=== PATIENT | female | born 1945 | race Caucasian/White ===

== ENCOUNTER 2016-06-30 09:09 | Outpatient (RCR) | payer MEDICARE ==
[2016-05-26 09:21] LABS: BASOPHILS % (AUTO) 1 % (0-10); EOSINOPHILS # (AUTO) 0.1 10^3/uL (0.0-0.3); EOSINOPHILS % (AUTO) 2 % (0-10); LYMPHOCYTES # (AUTO) 1.4 X 10^3 (1.0-4.0); LYMPHOCYTES % (AUTO) 23 % (12-44); MEAN CORPUSCULAR HEMOGLOBIN 28 PG (25-34); MEAN CORPUSCULAR HGB CONC 32 G/DL (32-36); MEAN CORPUSCULAR VOLUME 86 FL (80-99); MEAN PLATELET VOLUME 10.1 FL (7.4-10.4); MONOCYTES # (AUTO) 0.5 X 10^3 (0.0-1.0); MONOCYTES % (AUTO) 7 % (0-12); NEUTROPHILS # (AUTO) 4.2 X 10^3 (1.8-7.8); NEUTROPHILS % (AUTO) 68 % (42-75); PLATELET COUNT 231 10^3/uL (130-400); RED BLOOD COUNT 4.59 10^6/uL (4.35-5.85); WHITE BLOOD COUNT 6.3 10^3/uL (4.3-11.0)
[2016-05-26 10:10] LABS: ALBUMIN 4.1 G/DL (3.2-4.5); BILIRUBIN,TOTAL 0.5 MG/DL (0.1-1.0); CALCIUM 9.8 MG/DL (8.5-10.1); CREATININE SERUM 1.31 MG/DL (0.60-1.30); POTASSIUM 4.5 MMOL/L (3.6-5.0); TOTAL PROTEIN 6.8 G/DL (6.4-8.2)
[~2016-06-30 09:09] MED LIST: ALPR0.2550; ALPR0.5T PO; CA/D1TAB7 PO; CHOL500049 PO; FULVESTRANT 250 MG/5 ML SYR (CANCER CENTER) IM SCH; HCT25T; IBP800T; NAPR220T76; OMEP-10 PO; OXYCODONE; SIME40DR9 PO; SUCR1TAB; TELM40T; TELM40T PO
== END 2016-07-06 | disposition home or self-care (01) ==
LOC: ONC 09:09
PROVIDERS: ATTEND Internal Medicine Hematology & Oncology
DX: C50.911 Malignant neoplasm of unspecified site of right female breast (principal); J91.0 Malignant pleural effusion; N18.3 Chronic kidney disease, stage 3 (moderate); M85.80 Other specified disorders of bone density and structure, unspecified site; Z92.21 Personal history of antineoplastic chemotherapy; Z90.11 Acquired absence of right breast and nipple; Z79.818 Long term (current) use of other agents affecting estrogen receptors and estrogen levels
CPT/HCPCS: 36415; 80053; 82306; 85025; 86300; 96402; 99213

== ENCOUNTER 2016-10-09 03:18 | Observation (INO) | payer MEDICARE ==
[~2016-10-09] VITALS: Ht 165.1 cm; Wt 81.2 kg
[~2016-10-09 03:18] MED LIST changes: -FULVESTRANT 250 MG/5 ML SYR (CANCER CENTER) IM SCH
[2016-10-09] MEDS ORDERED: OMEG500C PO (03:35)
[2016-10-09] MEDS ORDERED: NS IV 1000 ML 1,000 ML IV STA (03:39)
[2016-10-09] MEDS ORDERED: FULV250D2 IM (03:44)
[2016-10-09] MEDS ORDERED: ONDANSETRON 4 MG/2 ML (SDV) Z0FRAN IVP ONE ×2 (03:45→06:15)
[2016-10-09] MEDS ORDERED: MECLIZINE 25 MG (ANTIVERT) TAB PO ONE (03:45)
--- NOTE | 2016-10-09 03:49 | ED General ---
General Chief Complaint: Dizziness/Syncope Stated Complaint: DIZZY NAUSEA SWEATNG Nursing Triage Note: Pt reports sudden onset of dizziness at 0115 this am when getting up to go to restroom. Pt reports dizziness is worse when lying down or closing eyes. Pt also reports vomiting. Daughter at bedside states she found pt in bathroom in shirt soaked w/ sweat. Nursing Sepsis Screen: No Definite Risk Source of Information: Patient Exam Limitations: No Limitations History of Present Illness Time Seen by Provider: 03:31 Initial Comments Here with report of acute onset of dizziness at about 115 this morning after she had got up to go to the bathroom. She states that she had gone and then went and laid back down. On laying down she states the room was spinning severely and then she started dry heaving. She did break out in a sweat after that. She was able to get her daughter to help. She brought her here for evaluation. Denies chest pain and her breathing problems. Denies syncope. Denies injury. Had a similar episode years ago in which she is dehydrated. Timing/Duration: 1-3 Hours Severity: Moderate, Severe Associated Systoms: Diaphoresis, Nausea/Vomiting, Weakness Allergies and Home Medications Allergies Coded Allergies: Sulfa (Sulfonamide Antibiotics) (Unverified Allergy, Mild, 02/04/09) ampicillin (Unverified Allergy, Mild, 02/04/09) Home Medications Ca/D3/Mag/Zinc/[place]/Damir/Mgbor 1 Each Tab.chew, 1 TAB PO BID, #1 Prescribed by: ZARA HANKS on 04/01/161740 Cholecalciferol (Vitamin D3) 50,000 Unit Capsule, 50,000 UNIT PO DAILY, #1 Prescribed by: ZARA HANKS on 04/01/161740 Fulvestrant 250 Mg/5 Ml Syringe, Unknown Dose IM monthly, (Reported) [place]-3 Fatty Acids 500 Mg Capsule.dr, 1,000 MG PO, (Reported) Omeprazole 20 Mg Capsule.dr, 20 MG PO DAILY, (Reported) Telmisartan 40 Mg Tab, 40 MG PO DAILY, (Reported) Constitutional: see HPI, diaphoresis, dizziness, No fever EENTM: no symptoms reported Respiratory: no symptoms reported, No short of breath, No wheezing Cardiovascular: No chest pain, No edema, No palpitations Gastrointestinal: No abdominal pain, No diarrhea, nausea, vomiting Genitourinary: no symptoms reported Musculoskeletal: no symptoms reported Skin: no symptoms reported, No rash Psychiatric/Neurological: See HPI, Denies Headache, Denies Numbness All Other Systems Reviewed Negative Unless Noted: Yes Past Mzvogpq-Nhmoit-Bimktp Hx Patient Social History Alcohol Use: Denies Use Recreational Drug Use: No Smoking Status: Never a Smoker Recent Foreign Travel: No Contact w/Someone Who Travel: No Recent Infectious Disease Expo: No Recent Hopitalizations: No Immunizations Up To Date Tetanus Booster (TDap): Unknown PED Vaccines UTD: No Seasonal Allergies Seasonal Allergies: No Surgeries HX Surgeries: Yes Surgeries: Breast, Hysterectomy Respiratory Hx Respiratory Disorders: Yes (PLEURAL EFFUSION) Cardiovascular Hx Cardiac Disorders: No Neurological Hx Neurological Disorders: No Reproductive System Hx Reproductive Disorders: Yes (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) 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 Genitourinary Hx Genitourinary Disorders: No Gastrointestinal Hx Gastrointestinal Disorders: Yes (ACID REFLUX) Gastrointestinal Disorders: Diverticulosis Musculoskeletal Hx Musculoskeletal Disorders: Yes Musculoskeletal Disorders: Arthritis Endocrine Hx Endocrine Disorders: Yes Endocrine Disorders: Hyperthyroidism HEENT HX ENT Disorders: No Cancer Hx Cancer: Yes Cancer: Breast Psychosocial Hx Psychiatric Problems: No Integumentary HX Skin/Integumentary Disorder: No Blood Transfusions Hx Blood Disorders: No Reviewed Nursing Assessment Reviewed/Agree w Nursing PMH: Yes Family Medical History Significant Family History: Diabetes Family Medial History: Arthritis 19 MOTHER G8 SISTER Completed stroke 19 FATHER Hypertension DAUGHTER Physical Exam Vital Signs Vital Sign - Last 12Hours 10/09/16 03:27 Temp 96.7 Pulse 78 Resp 18 B/P (MAP) 149/73 Pulse Ox 99 O2 Delivery Room Air Capillary Refill : Less Than 3 Seconds General Appearance: WD/WN, Mild Distress HEENT: PERRL/EOMI, Pharynx Normal Neck: Non Tender, Supple Respiratory: Lungs Clear, Normal Breath Sounds Cardiovascular: Regular Rate, Rhythm, No Murmur Gastrointestinal: Non Tender, Soft Back: Normal Inspection, No CVA Tenderness, No Vertebral Tenderness Extremity: Non Tender, No Calf Tenderness Neurologic/Psychiatric: Alert, Oriented x3, No Motor/Sensory Deficits Skin: Normal Color, Warm/Dry Progress/Results/Core Measures Results/Orders Lab Results Laboratory Tests Test 10/09/16 03:28 10/09/16 04:38 Range/Units White Blood Count 9.6 4.3-11.0 10^3/uL Red Blood Count 4.57 4.35-5.85 10^6/uL Hemoglobin 12.6 11.5-16.0 G/DL Hematocrit 39 35-52 % Mean Corpuscular Volume 85 80-99 FL Mean Corpuscular Hemoglobin 28 25-34 PG Mean Corpuscular Hemoglobin Concent 32 32-36 G/DL Red Cell Distribution Width 13.3 10.0-14.5 % Platelet Count 236 130-400 10^3/uL Mean Platelet Volume 10.9 H 7.4-10.4 FL Neutrophils (%) (Auto) 69 42-75 % Lymphocytes (%) (Auto) 21 12-44 % Monocytes (%) (Auto) 8 0-12 % Eosinophils (%) (Auto) 2 0-10 % Basophils (%) (Auto) 1 0-10 % Neutrophils # (Auto) 6.7 1.8-7.8 X 10^3 Lymphocytes # (Auto) 2.0 1.0-4.0 X 10^3 Monocytes # (Auto) 0.7 0.0-1.0 X 10^3 Eosinophils # (Auto) 0.2 0.0-0.3 10^3/uL Basophils # (Auto) 0.1 0.0-0.1 10^3/uL Prothrombin Time 12.2 12.2-14.7 SEC INR Comment 0.9 0.8-1.4 Activated Partial Thromboplast Time 33 24-35 SEC D-Dimer 0.27 0.00-0.49 UG/ML Sodium Level 141 135-145 MMOL/L Potassium Level 4.2 3.6-5.0 MMOL/L Chloride Level 106 98-107 MMOL/L Carbon Dioxide Level 21 21-32 MMOL/L Anion Gap 14 5-14 MMOL/L Blood Urea Nitrogen 32 H 7-18 MG/DL Creatinine 1.42 H 0.60-1.30 MG/DL Estimat Glomerular Filtration Rate 37 BUN/Creatinine Ratio 23 Glucose Level 107 H 70-105 MG/DL Calcium Level 9.6 8.5-10.1 MG/DL Magnesium Level 2.2 1.8-2.4 MG/DL Total Bilirubin 0.4 0.1-1.0 MG/DL Aspartate Amino Transf (AST/SGOT) 20 5-34 U/L Alanine Aminotransferase (ALT/SGPT) 14 0-55 U/L Alkaline Phosphatase 113 40-136 U/L Troponin I < 0.30 <0.30 NG/ML Total Protein 6.9 6.4-8.2 G/DL Albumin 4.2 3.2-4.5 G/DL Thyroid Stimulating Hormone (TSH) 1.06 0.35-4.94 UIU/ML Urine Color YELLOW Urine Clarity CLEAR Urine pH 5 5-9 Urine Specific [place] 1.020 1.016-1.022 Urine Protein NEGATIVE NEGATIVE Urine Glucose (UA) NEGATIVE NEGATIVE Urine Ketones NEGATIVE NEGATIVE Urine Nitrite NEGATIVE NEGATIVE Urine Bilirubin NEGATIVE NEGATIVE Urine Urobilinogen NORMAL NORMAL MG/DL Urine Leukocyte Esterase 3+ H NEGATIVE Urine RBC (Auto) NEGATIVE NEGATIVE Urine RBC NONE /HPF Urine WBC 5-10 H /HPF Urine Squamous Epithelial Cells RARE /HPF Urine Crystals NONE /LPF Urine Bacteria TRACE /HPF Urine Casts PRESENT /LPF Urine Hyaline Casts RARE /LPF Urine Mucus NEGATIVE /LPF Urine Culture Indicated YES My Orders Orders - LUISITO MANRIQUE MD Cbc With Automated Diff (10/09/16 03:39) Comprehensive Metabolic Panel (10/09/16 03:39) Fibrin Degradation Products (10/09/16 03:39) Magnesium (10/09/16 03:39) Thyroid Stimulating Hormone (10/09/16 03:39) Troponin I (10/09/16 03:39) Ua Culture If Indicated (10/09/16 03:39) Chest 1 View, Ap/Pa Only (10/09/16 03:39) Ondansetron Injection (Zofran Injectio (10/09/16 03:45) Ns Iv 1000 Ml (Sodium Chloride 0.9%) (10/09/16 03:39) Saline Lock/Iv-Start (10/09/16 03:39) Meclizine Tablet (Antivert Tablet) (10/09/16 03:45) Protime With Inr (10/09/16 04:10) Partial Thromboplastin Time (10/09/16 04:10) Urine Culture (10/09/16 04:38) Ct Head Wo (10/09/16 05:26) Ceftriaxone Injection (Rocephin Injectio (10/09/16 05:30) Ondansetron Injection (Zofran Injectio (10/09/16 06:15) Diazepam Injection (Valium Injection) (10/09/16 06:15) Medications Given in ED Current Medications Medications Dose Ordered Sig/Brinda Route Start Time Stop Time Status Last Admin Dose Admin Ceftriaxone Sodium 1000 mg/ Sodium Chloride 50 ml @ 100 mls/hr ONCE ONCE IV 10/09/16 05:30 10/09/16 05:59 DC 10/09/16 05:30 100 MLS/HR Meclizine HCl 25 mg ONCE ONCE PO 10/09/16 03:45 10/09/16 03:46 DC 10/09/16 03:48 25 MG Ondansetron HCl 4 mg ONCE ONCE IVP 10/09/16 03:45 10/09/16 03:46 DC 10/09/16 03:47 4 MG Vital Signs/I&O Vital Sign - Last 12Hours 10/09/16 03:27 Temp 96.7 Pulse 78 Resp 18 B/P (MAP) 149/73 Pulse Ox 99 O2 Delivery Room Air Blood Pressure Mean: 98 Progress Note : Progress Note Seen and evaluated. IV, labs, normal saline 1 L bolus, Zofran 4 mg IV and meclizine 25 mg by mouth given. EKG and chest x-ray ordered. Monitor patient. 0530: Somewhat improved but still pretty dizzy. UTI noted. No indications of cardiac abnormality currently. Due to persistent dizziness and urinary tract infection, admission indicated. I did discuss the case with Dr. Doran. He accepts patient for admission, observation status. Patient is complaining of some fullness of the head and has history of breast and lung cancer so we will get CT of the head as well. Dr. Doran will follow results of that. Patient agrees to admission. 0610: Patient has completed CT scan and is pending admission to the floor. She is persistently vomiting now. Repeat Zofran 4 mg IV. Valium 2 mg IV ordered. Continue with admission. ECG Initial ECG Impression Date: Oct 09, 2016 Initial ECG Impression Time: 03:36 Initial ECG Rate: 76 Initial ECG Rhythm: Normal Sinus Comment Sinus rhythm with normal axis but leftward. After trial abnormality. No evidence of ST elevation PA. Overall very similar to previous of . Interpreted by me. Diagnostic Imaging Diagonstic Imaging: Xray Plain Films/CT/US/NM/MRI: chest Comments No acute findings Reviewed: Reviewed by Me Diagonstic Imaging: CT Plain Films/CT/US/NM/MRI: head Comments VIA [facility], [facility]. [place], [place] NAME: NIKKO CAMARENA [facility] REC#: [id number] PT STATUS: ADM Elia : 1945 PHYSICIAN: LUISITO MANRIQUE MD ADMIT DATE: 10/09/16 Draft Date of Exam:10/09/16 CT HEAD WO PROCEDURE: CT head without contrast. TECHNIQUE: Multiple contiguous axial images were obtained through the brain without the use of intravenous contrast. INDICATION: Dizziness. COMPARISONS: None available. FINDINGS: No hyperdense hemorrhage or space-occupying mass. No hydrocephalus or midline shift. Bent[place]-white matter differentiation is preserved. Specifically, there is no evidence of large territorial infarct. Age-appropriate mild generalized atrophy without lobar predominance. The basilar cisterns remain patent. Paranasal sinuses and mastoid air cells are clear with the exception of trace mucosal thickening of the sphenoid sinuses. Orbits are unremarkable. No concerning calvarial lesion. IMPRESSION: 1. No acute intracranial process. Dictated on workstation # [id number] Dict: 10/09/16 0601 Trans: 10/09/16 0605 ELIZABETH [id number] Interpreted by: REYNA BLANTON MD Electronically signed by: Reviewed: Reviewed by Me Departure Communication Time/Spoke to Admitting Phy: 05:30 Impression Impression: Primary Impression: Urinary tract infection Qualified Codes: N30.00 - Acute cystitis without hematuria Additional Impression: Vertigo Disposition: ADMITTED INPATIENT Condition: Stable Decision to Admit Reason: Admit from ER (General) Decision to Admit/Date: Oct 09, 2016 Time/Decision to Admit Time: 05:30 Departure-Patient Inst. Referrals: PIEDAD DORAN DO (PCP/Family) Primary Care Physician LUISITO MANRIQUE MD Oct 09, 2016 03:49
[2016-10-09 03:54] LABS: BASOPHILS # (AUTO) 0.1 10^3/uL (0.0-0.1); BASOPHILS % (AUTO) 1 % (0-10); EOSINOPHILS # (AUTO) 0.2 10^3/uL (0.0-0.3); EOSINOPHILS % (AUTO) 2 % (0-10); LYMPHOCYTES % (AUTO) 21 % (12-44); MEAN CORPUSCULAR HEMOGLOBIN 28 PG (25-34); MEAN CORPUSCULAR HGB CONC 32 G/DL (32-36); MEAN CORPUSCULAR VOLUME 85 FL (80-99); MEAN PLATELET VOLUME 10.9 FL (7.4-10.4); MONOCYTES # (AUTO) 0.7 X 10^3 (0.0-1.0); MONOCYTES % (AUTO) 8 % (0-12); NEUTROPHILS # (AUTO) 6.7 X 10^3 (1.8-7.8); NEUTROPHILS % (AUTO) 69 % (42-75); PLATELET COUNT 236 10^3/uL (130-400); RED BLOOD COUNT 4.57 10^6/uL (4.35-5.85); RED CELL DISTRIBUTION WIDTH 13.3 % (10.0-14.5); WHITE BLOOD COUNT 9.6 10^3/uL (4.3-11.0)
[2016-10-09 04:12] LABS: ALANINE AMINOTRANSFERASE 14 U/L (0-55); ALBUMIN 4.2 G/DL (3.2-4.5); ANION GAP 14 MMOL/L (5-14); ASPARTATE AMINO TRANSFERASE 20 U/L (5-34); BILIRUBIN,TOTAL 0.4 MG/DL (0.1-1.0); BLOOD UREA NITROGEN 32 MG/DL (7-18); BUN/CREATININE RATIO 23; CALCIUM 9.6 MG/DL (8.5-10.1); CARBON DIOXIDE 21 MMOL/L (21-32); CHLORIDE 106 MMOL/L (98-107); CREATININE SERUM 1.42 MG/DL (0.60-1.30); GFR ESTIMATED 37; GLUCOSE 107 MG/DL (70-105); MAGNESIUM 2.2 MG/DL (1.8-2.4); POTASSIUM 4.2 MMOL/L (3.6-5.0); SODIUM 141 MMOL/L (135-145); TOTAL PROTEIN 6.9 G/DL (6.4-8.2)
[2016-10-09 04:19] LABS: INR 0.9 (0.8-1.4); PROTHROMBIN TIME PATIENT 12.2 SEC (12.2-14.7)
[2016-10-09 04:32] LABS: THYROID STIMULATING HORMONE 1.06 UIU/ML (0.35-4.94); TROPONIN I < 0.30 NG/ML (<0.30)
[2016-10-09 04:46] LABS: BILIRUBIN,URINE NEGATIVE (NEGATIVE); KETONES,URINE NEGATIVE (NEGATIVE); LEUKOCYTE ESTERASE ,URINE 3+ (NEGATIVE); NITRITE,URINE NEGATIVE (NEGATIVE); PH,URINE 5 (5-9); PROTEIN,URINE NEGATIVE (NEGATIVE); UROBILINOGEN,URINE NORMAL (NORMAL)
[2016-10-09 04:53] LABS: HYALINE CASTS, URINE RARE /LPF; SQUAMOUS EPITHELIAL CELL,UR RARE /HPF
[2016-10-09] MEDS ORDERED: cefTRIAXone INJECTION 1,000 MG in NS (IVPB) 50 ML IV ONE (05:30)
--- NOTE | 2016-10-09 06:06 | Diagnostic Imaging Report ---
PROCEDURE: CT head without contrast. TECHNIQUE: Multiple contiguous axial images were obtained through the brain without the use of intravenous contrast. INDICATION: Dizziness. COMPARISONS: None available. FINDINGS: No hyperdense hemorrhage or space-occupying mass. No hydrocephalus or midline shift. Bentley-white matter differentiation is preserved. Specifically, there is no evidence of large territorial infarct. Age-appropriate mild generalized atrophy without lobar predominance. The basilar cisterns remain patent. Paranasal sinuses and mastoid air cells are clear with the exception of trace mucosal thickening of the sphenoid sinuses. Orbits are unremarkable. No concerning calvarial lesion. IMPRESSION: 1. No acute intracranial process. Dictated by: Dictated on workstation # [id number]
[2016-10-09] MEDS ORDERED: DIAZEPAM INJ 10 MG/2 ML (VALIUM) SYR IV ONE (06:15)
[2016-10-09] MEDS ORDERED: NS IV 1000 ML 1,000 ML ONE (06:40)
[2016-10-09 06:45] VITALS: BP 142/67
--- NOTE | 2016-10-09 06:48 | Diagnostic Imaging Report ---
CHEST 1 VIEW, AP/PA ONLY INDICATION: Sudden onset dizziness COMPARISON: 11/12/2012 FINDINGS: Stable right apical subpleural nodular thickening, likely due to pleural-parenchymal scarring. No new focal airspace disease in the visualized lungs. Please note that the posterior lower lobes are poorly evaluated by portable radiography. No pleural effusion or pneumothorax. Normal cardiomediastinal silhouette. IMPRESSION: No acute cardiopulmonary process by portable radiography. Dictated by: Dictated on workstation # [id number]
[2016-10-09] MEDS: NS IV 1000 ML 1,000 ML IV SCH ×2 (07:00→16:55)
[2016-10-09] MEDS ORDERED: CA C1TAB84 PO (07:50)
[2016-10-09 08:00] VITALS: BP 119/76
[2016-10-09] MEDS: ONDANSETRON 4 MG/2 ML (SDV) Z0FRAN IV PRN ×2 (11:43→16:56)
[2016-10-09] MEDS: MECLIZINE 25 MG (ANTIVERT) TAB PO PRN ×2 (11:44→20:23)
--- NOTE | 2016-10-09 11:54 | History & Physicial ---
History of Present Illness History of Present Illness Reason for visit/HPI sudden onset of dizziness when got up to go to the bathroom. Everything was spinning around her head with eyes closed. Patient went back to bathroom still got dizzy and soaking wet. Daughter was called and patient brought out to the emergency room. Surgeries hysterectomy and right breast mastectomy. Patient this morning still feeling dizzy. When patient was dizzy last night she vomited. Mnire's disease. UA shows infection infection. Renal insufficiency. Takes monthly shots for breast cancer. Family history denies asthma TB diabetes heart disease lung disease cancer Date of Admission Oct 09, 2016 at 05:32 I consulted on this patient on 10/09/16 11:50 Attending Physician Jerrod Doran DO Admitting Physician Jerrod Doran DO Consult Allergies and Home Medications Allergies Coded Allergies: Sulfa (Sulfonamide Antibiotics) (Unverified Allergy, Mild, 02/04/09) ampicillin (Unverified Allergy, Mild, 02/04/09) Home Medications Ca Carb/D3/Mag Ox/Soap Drier Tender/Damir/Zn 1 Each Tablet, 1 EACH PO BID, (Reported) Cholecalciferol (Vitamin D3) 50,000 Unit Capsule, 50,000 UNIT PO DAILY, #1 Prescribed by: ZARA HANKS on 04/01/16 1741 Fulvestrant 250 Mg/5 Ml Syringe, Unknown Dose IM monthly, (Reported) Omeprazole 20 Mg Capsule.dr, 20 MG PO DAILY, (Reported) Telmisartan 40 Mg Tab, 40 MG PO DAILY, (Reported) Past Kcixtiz-Zguihq-Imfrrp Hx Patient Social History Marrital Status: Employed/Student: unemployed Alcohol Use: Denies Use Recreational Drug Use: No Smoking Status: Never a Smoker Physical Abuse Screen: No Sexual Abuse: No Recent Foreign Travel: No Contact w/other who traveled: No Recent Hopitalizations: No Recent Infectious Disease Expo: No Immunizations Up To Date Tetanus Booster (TDap): Unknown Seasonal Allergies Seasonal Allergies: No Surgeries HX Surgeries: Yes Surgeries: Breast, Hysterectomy Respiratory Hx Respiratory Disorders: Yes (PLEURAL EFFUSION) Cardiovascular Hx Cardiovascular Disorders: No Neurological Hx Neurological Disorders: No Reproductive System Hx Reproductive Disorders: Yes (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) Sexually Transmitted Disease: No Genitourinary Hx Genitourinary Disorders: No Gastrointestinal Hx Gastrointestinal Disorders: Yes (ACID REFLUX) Gastrointestinal Disorders: Diverticulosis Musculoskeletal Hx Musculoskeletal Disorders: Yes Musculoskeletal Disorders: Arthritis Endocrine Hx Endocrine Disorders: Yes Endocrine Disorders: Hyperthyroidism HEENT HX ENT Disorders: No Cancer Hx Cancer: Yes Cancer: Breast Psychosocial Hx Psychiatric Problems: No Integumentary HX Skin/Integumentary Disorder: No Blood Transfusions Hx Blood Disorders: No Reviewed Nursing Assessment Reviewed/Agree w Nursing PMH: Yes Family Medical History Significant Family History: Diabetes Family Hx: Arthritis 19 MOTHER G8 SISTER Completed stroke 19 FATHER Hypertension DAUGHTER Constitutional: dizziness, weakness EENTM: no symptoms reported Respiratory: no symptoms reported Cardiovascular: no symptoms reported Gastrointestinal: nausea, vomiting Genitourinary: no symptoms reported Physical Exam Vital Signs Vital Sign - Last 12Hours 10/09/16 03:27 Temp 96.7 Pulse 78 Resp 18 B/P (MAP) 149/73 Pulse Ox 99 O2 Delivery Room Air Capillary Refill : Less Than 3 Seconds General Appearance: No Apparent Distress, WD/WN Eyes: Bilateral Eye Normal Inspection HEENT: Normal ENT Inspection Respiratory: Chest Non Tender, Lungs Clear, Normal Breath Sounds, No Accessory Muscle Use, No Respiratory Distress Cardiovascular: Regular Rate, Rhythm, No Murmur Gastrointestinal: Non Tender, Soft Assessment/Plan Assessment and Plan Mnire's disease. Dizziness. Vomiting. infection. Renal insufficiency. Right breast cancer. Hypertension history Problems: Clinical Quality Measures DVT/VTE Risk/Contraindication: Risk Factor Score Per Nursin RFS Level Per Nursing on Admit: 3=High JERROD DORAN DO Oct 09, 2016 11:54
[2016-10-09] MEDS ORDERED: TELMISARTAN 40 MG (MICARDIS) TAB PO SCH (11:55)
[2016-10-09] MEDS ORDERED: PANTOPRAZOLE 20 MG TABLET (PROTONIX) PO SCH (11:57)
[2016-10-09 12:00] VITALS: BP 125/77
[2016-10-09] MEDS: ENOXAPARIN 40 MG/0.4 ML (LOVENOX) SYR SC SCH ×2 (12:00→12:19)
[2016-10-09] MEDS ORDERED: PATIENT MAY USE OWN MEDS, ALL MC SCH (12:15)
[2016-10-09] MEDS: TELMISARTAN 40 MG (MICARDIS) TAB PO SCH (14:34)
[2016-10-09] MEDS: OMEPRAZOLE 20 MG (PriLOSEC) CAP NON-FORMULARY PO SCH (14:34)
[2016-10-09 16:00] VITALS: BP 130/76
[2016-10-09 20:25] VITALS: BP 119/74
[2016-10-09] MEDS: traZODone 50 MG (DESYREL) TAB PO SCH (22:11)
[2016-10-10] VITALS (8 sets, daily range): BP systolic 98–147; BP diastolic 55–82
[2016-10-10] MEDS: NS IV 1000 ML 1,000 ML IV SCH ×3 (02:59→23:13)
[2016-10-10 06:26] LABS: MEAN PLATELET VOLUME 10.9 FL (7.4-10.4); RED BLOOD COUNT 3.94 10^6/uL (4.35-5.85); RED CELL DISTRIBUTION WIDTH 13.2 % (10.0-14.5); WHITE BLOOD COUNT 6.3 10^3/uL (4.3-11.0)
[2016-10-10] MEDS: cefTRIAXone INJECTION 1,000 MG in NS (IVPB) 50 ML IV SCH (06:26)
[2016-10-10] MEDS: OMEPRAZOLE 20 MG (PriLOSEC) CAP NON-FORMULARY PO SCH (06:26)
[2016-10-10 06:49] LABS: CALCIUM 8.4 MG/DL (8.5-10.1); CREATININE SERUM 0.98 MG/DL (0.60-1.30); POTASSIUM 4.3 MMOL/L (3.6-5.0)
--- NOTE | 2016-10-10 08:03 | Progress Note (SOAP) ---
Subjective Subjective/Events-last exam patient feeling better as long as head of the bed is elevated. Patient feels 50-60 percent better. When head of the bed is down patient feels dizzy and nauseous. To advance diet as tolerated Objective Exam Vital Signs Date Time Temp Pulse Resp B/P (MAP) Pulse Ox O2 Delivery O2 Flow Rate FiO2 10/10/16 04:18 97.6 71 12 100/55 94 Room Air 10/10/16 03:54 70 101/64 100/60 10/10/16 00:25 97.9 80 16 98/62 94 Room Air 10/09/16 20:30 94 Room Air 10/09/16 20:25 98.2 77 18 119/74 96 Room Air 10/09/16 16:00 98.6 79 18 130/76 97 Room Air 10/09/16 12:00 97.9 79 20 125/77 94 Room Air 10/09/16 08:00 97.0 80 20 119/76 96 Room Air I & O 10/10/16 07:00 Intake Total 1200 ml Balance 1200 ml Capillary Refill : Less Than 3 Seconds General Appearance: No Apparent Distress, WD/WN HEENT: Normal ENT Inspection Neck: Normal Inspection Respiratory: Chest Non Tender, Lungs Clear, Normal Breath Sounds, No Accessory Muscle Use, No Respiratory Distress Cardiovascular: Regular Rate, Rhythm, No Murmur Gastrointestinal: non tender, soft Results Lab Laboratory Tests 10/10/16 05:29: White Blood Count 6.3, Red Blood Count 3.94L, Hemoglobin 11.0L, Hematocrit 35, Mean Corpuscular Volume 88, Mean Corpuscular Hemoglobin 28, Mean Corpuscular Hemoglobin Concent 32, Red Cell Distribution Width 13.2, Platelet Count 204, Mean Platelet Volume 10.9H, Sodium Level 143, Potassium Level 4.3, Chloride Level 112H, Carbon Dioxide Level 23, Anion Gap 8, Blood Urea Nitrogen 15, Creatinine 0.98, Estimat Glomerular Filtration Rate 56, BUN/Creatinine Ratio 15 , Glucose Level 93, Calcium Level 8.4L Microbiology 10/09/16 Urine Culture - Preliminary, Resulted Assessment/Plan Assessment/Plan Assess & Plan/Chief Complaint dizziness. Nausea and vomiting. To advance diet. Still has dizziness especially when head of the bed go straight Clinical Quality Measures DVT/VTE Risk/Contraindication: Risk Factor Score Per Nursin RFS Level Per Nursing on Admit: 3=High PIEDAD DORAN DO Oct 10, 2016 08:03
--- NOTE | 2016-10-10 08:41 | Progress Note-Standard ---
Standard Progress Note Progress Notes/Assess & Plan Progress/Assessment & Plan ENT-[facility] Patient seen/evaluated Full note dictated and follow-up arranged JHON QUEEN MD Oct 10, 2016 8:41 am
[2016-10-10] MEDS: TELMISARTAN 40 MG (MICARDIS) TAB PO SCH (08:50)
[2016-10-10] MEDS: MECLIZINE 25 MG (ANTIVERT) TAB PO PRN ×2 (10:07→23:26)
[2016-10-10] MEDS: ONDANSETRON 4 MG/2 ML (SDV) Z0FRAN IV PRN (10:07)
[2016-10-10] MEDS: ACETAMINOPHEN 325 MG TABLET/CAPLET (TYLENOL) PO PRN (10:59)
[2016-10-10] MEDS ORDERED: CALC-6 PO (10:59)
[2016-10-10] MEDS ORDERED: CHOL5000 PO (10:59)
--- NOTE | 2016-10-10 11:06 | Physical Therapy Evaluation ---
PT Evaluation-General Medical Diagnosis Admission Date Oct 09, 2016 at 05:32 Medical Diagnosis: UTI/dizziness Onset Date: Oct 09, 2016 Therapy Diagnosis Therapy Diagnosis: debility secondary to dizziness Height/Weight Height (Feet): 5 Height (Inches): 5.00 Weight (Pounds): 179 Weight (Ounces): 1.0 Precautions Precautions/Isolations: Fall Prevention, Standard Precautions Referral Physician: [facility] Reason for Referral: Evaluation/Treatment Medical History Pertinent Medical History: Arthritis, HTN Additional Medical History hyperthyroidism Current History woke up at 115 a.m. with c/o increased dizziness in supine and eyes closed, with N&V and diaphoresis family brought patient to ED Reviewed History: Yes Social History Home: Single Level Current Living Status: Spouse Prior/Core FIM Prior Level of Function Functional [place] Measure 0=Not Assessed/NA 4=Minimal Assistance 1=Total Assistance 5=Supervision or Setup 2=Maximal Assistance 6=Modified [place] 3=Moderate Assistance 7=Complete [place] Bed Mobility: 7 Transfers (B,C,W/C) (FIM): 7 Gait: 7 Locomotion: 7 PT Evaluation-Current Subjective Patient is in bed and c/o sinus pressure in her face and right neck pain at rest and with movement. Pain Numeric Pain Scale: 8 Location: Posterior, Anterior Location Body Site: Head Pain Description: Pressure, Throbbing Objective Patient Orientation: Normal For Age Problem Solving: Good Attachments: IV ROM/Strength ROM Lower Extremities bilateral LE WFL Strenght Lower Extremities bilateral LE WFL Integumentary/Posture Integumentary refer to nursing notes Bowel Incontinence: No Bladder Incontinence: No Posture WNL Neuromuscular (Tone, Coordination, Reflexes) grossly intact Sensory Vision: Functional Hearing: Functional Sensation Right Lower Extremit: Intact Sensation Left Lower Extremity: Intact Transfers Functional [place] Measure 0=Not Assessed/NA 4=Minimal Assistance 1=Total Assistance 5=Supervision or Setup 2=Maximal Assistance 6=Modified [place] 3=Moderate Assistance 7=Complete [place] Transfers (B, C, W/C) (FIM): 7 Scootin Rollin Supine to/from Sit: 7 unable to test standing transfer secondary to patient vomited with supine to sit transfer Gait Mode of Locomotion: Walk Anticipated Mode of Locomotion: Walk Balance Sitting Static: Normal Sitting Dynamic: Normal Treatment Massage to cervical region and facial/sinus region to alleviate pressure and noted cervical and upper trap musculature tension. Patient did have relief with this technique, however, with visual tracking exercises in supine (HOB elevated) and seated, patient is limited with right upper trap and cervical ROM with increase in c/o dizziness resulting in N &V. RN notified. Patient returned to supine in bed with HOB elevated for comfort. Assessment/Needs 70 y.o. female, will benefit from short term skilled PT to address cervical muscle tension and vestibular limitations resulting in increase dizziness with N & V. Patient is encouraged to perform cervical ROM in bed to decrease muscle tension and improve dizziness. Rehab Potential: Good PT Airport Tower Controller Goals Airport Tower Controller Goals PT Airport Tower Controller Goals Time Frame: Oct 14, 2016 Transfers (B,C,W/C) (FIM): 7 Gait (FIM): 7 Gait distance (FIM): 3=150 ft Gait Level of Assist: 7 decrease dizziness and increase cervical ROM with massage and visual tracking exercises PT Plan Treatment/Plan Treatment Plan: Continue Plan of Care Treatment Plan: Education, Other (massage/visual tracking exercises) Treatment Duration: Oct 14, 2016 # of days/week 5 Visits Per Week: 5 Pt/Family Agrees w/Plan: Yes Safety Risks/Education Patient Education: Issued Written HEP (visual tracking/cervical ROM exercises) Teaching Recipient: Patient, Significant Other Teaching Methods: Demonstration, Discussion Response to Teaching: Verbalize Understanding, Return Demonstration Discharge Recommendations Therapy D/C Recommendations: Home w/ Family Support, Home Independently Time/GCodes Time In: 1020 Time Out: 1050 Total Billed Treatment Time: 30 Total Billed Treatment 1 visit EVLowC 15 min Mas 15 min G Codes Necessary: Yes PT/OT Therapy GCodes Therapy Functional Limitation: Physical Therapy Test(s)/Tool used to determine: Level of Assistance Scale Functional Limitation-Current Charge Code: MOBCUR Modifier: CI Functional Limitation-Goal Charge Code: MOBGOAL Modifier: FLASH TREJO PT Oct 10, 2016 11:06
--- NOTE | 2016-10-10 11:08 | CONSULTATION REPORT ---
DATE OF CONSULTATION: 10/10/2016 REFERRING PHYSICIAN: Dr. Beauchamp. REASON FOR CONSULTATION: Acute onset dizziness. HISTORY OF PRESENT ILLNESS: The patient was admitted to the hospital yesterday after acute onset of dizziness. The dizziness had acute onset around 5:30 in the morning when she got up to go the bathroom. She felt a little dizzy when she got up, but when she reached the bathroom everything began to spin very fast. She had to sit down on the floor and was not able to get up. She had no other symptoms. There was no central symptoms. She had no loss of consciousness. She was transported to the ER where work-up was complete including a CT of the head which was negative. Metabolic work-up was essentially negative. It did however show a urinary tract infection for which she is being treated. She reports she was not sick, had not had the flu previous to this and went to bed feeling well the night before. She has no associated ear symptoms. There has been no plugged feeling in the ear. She has had no significant lower roaring in the ear associated with her dizziness and she has had no change or fluctuation in her hearing. There has been no change of vision or other central symptoms. Today she does complain of mild stiffness in the back of the neck said she has not been turning her head very much because of the acute dizziness. Today she reports she is 50 to 60% better and can lay in bed with her head elevated without spinning. When she gets up or lays flat then it still spins but to a lesser degree. Years ago, she had a similar episode not as severe which was related to dehydration. She has been receiving IV Valium, as well as meclizine. It does help. PAST MEDICAL HISTORY: Reflux disease. ALLERGIES: 1. SULFA. 2. PENICILLIN. MEDICATIONS: 1. Vitamin D 3. 2. Fulvestrant. 3. Prilosec. 4. Telmisartan. SYSTEM REVIEW: Is significant for history of breast cancer with a history of double mastectomy. PHYSICAL EXAMINATION: EYES: There is no spontaneous nystagmus seen this morning. Vision is grossly intact. EARS: Small amount of cerumen present in both canals. Tympanic membranes were intact and mobile. There is no evidence of infection or fluid present. NECK: Negative to palpation. IMPRESSION: Acute labyrinthitis, right-sided. RECOMMENDATIONS: The diagnosis and findings were discussed with her and her family. Her signs and symptoms are consistent with a vestibular neuronitis (labyrinthitis) which had its acute onset and will take time to resolve. I started her on 2 mg of Valium at night to home orally to calm down the balance system. She will need a prescription for this to go home and I would leave her on it for a period of 3 to 4 weeks. Balance exercises through the physical therapy department would be recommended. She may only be able to do the sitting ones at this point, but can progress to standing and walking. Once she is symptomatically improved then she can be discharged with a follow-up appointment with me in approximately 3 weeks on a day that we can do an audiogram in [place]. I did go over the warning signs of a stroke with her and if she develops any of those she will need to return to the emergency room. Job ID: [id number] Dictated Date: 10/10/2016 09:26:27 Poultry Hanger Date: 10/10/2016 10:57:07/raúl
[2016-10-10] MEDS: ENOXAPARIN 40 MG/0.4 ML (LOVENOX) SYR SC SCH (13:04)
[2016-10-10] MEDS: traZODone 50 MG (DESYREL) TAB PO SCH (22:00)
[2016-10-10] MEDS: DIAZEPAM 2 MG (VALIUM) TAB PO SCH (22:00)
[2016-10-11] VITALS (7 sets, daily range): BP systolic 120–160; BP diastolic 58–91
[2016-10-11] MEDS: cefTRIAXone INJECTION 1,000 MG in NS (IVPB) 50 ML IV SCH (06:02)
[2016-10-11 06:06] LABS: MEAN PLATELET VOLUME 11.1 FL (7.4-10.4); RED BLOOD COUNT 3.91 10^6/uL (4.35-5.85); RED CELL DISTRIBUTION WIDTH 13.3 % (10.0-14.5)
[2016-10-11 06:14] LABS: CALCIUM 8.4 MG/DL (8.5-10.1); CREATININE SERUM 0.98 MG/DL (0.60-1.30); POTASSIUM 4.3 MMOL/L (3.6-5.0)
[2016-10-11] MEDS: OMEPRAZOLE 20 MG (PriLOSEC) CAP NON-FORMULARY PO SCH (07:05)
--- NOTE | 2016-10-11 07:49 | Progress Note (SOAP) ---
Subjective Subjective/Events-last exam acute labyrinthitis right side. Patient still has some dizziness and still wobbly when gets up. Patient a work in progress. UA culture under 10,000 Objective Exam Vital Signs Date Time Temp Pulse Resp B/P (MAP) Pulse Ox O2 Delivery O2 Flow Rate FiO2 10/11/16 04:37 97.7 75 18 127/63 95 Room Air 10/11/16 00:45 97.0 74 20 120/58 95 Room Air 10/10/16 20:20 Room Air 10/10/16 20:00 96.6 76 20 147/82 95 Room Air 10/10/16 16:00 97.0 82 20 115/72 97 Room Air 10/10/16 12:00 98.1 78 18 117/75 95 Room Air 10/10/16 09:00 93 Room Air 10/10/16 08:40 80 130/74 10/10/16 08:00 97.2 73 18 128/78 96 Room Air I & O 10/11/16 07:00 Intake Total 2756 ml Output Total 1475 ml Balance 1281 ml Capillary Refill : Less Than 3 Seconds General Appearance: No Apparent Distress, WD/WN HEENT: Normal ENT Inspection Neck: Normal Inspection Respiratory: Chest Non Tender, Lungs Clear, Normal Breath Sounds, No Accessory Muscle Use Cardiovascular: Regular Rate, Rhythm, No Murmur Gastrointestinal: non tender, soft Results Lab Laboratory Tests 10/11/16 04:47 Laboratory Tests 10/11/16 04:47: White Blood Count 6.0, Red Blood Count 3.91L, Hemoglobin 10.8L, Hematocrit 35, Mean Corpuscular Volume 89, Mean Corpuscular Hemoglobin 28, Mean Corpuscular Hemoglobin Concent 31L, Red Cell Distribution Width 13.3, Platelet Count 181, Mean Platelet Volume 11.1H, Sodium Level 143, Potassium Level 4.3, Chloride Level 114H, Carbon Dioxide Level 21, Anion Gap 8, Blood Urea Nitrogen 12, Creatinine 0.98, Estimat Glomerular Filtration Rate 56, BUN/Creatinine Ratio 12 , Glucose Level 91, Calcium Level 8.4L Microbiology 10/09/16 Urine Culture - Preliminary, Resulted Assessment/Plan Assessment/Plan Assess & Plan/Chief Complaint dizziness. Nausea and vomiting. To advance diet. Still has dizziness especially when head of the bed go straight . . 4/18/17. Patient still has dizziness. Patient wobbly when walks still. Patient consulted by ENT. Patient has acute labyrinthitis right side. Patient slowly improving Patient not safe to go home yet Clinical Quality Measures DVT/VTE Risk/Contraindication: Risk Factor Score Per Nursin RFS Level Per Nursing on Admit: 3=High PIEDAD DORAN DO Oct 11, 2016 07:49
[2016-10-11] MEDS: TELMISARTAN 40 MG (MICARDIS) TAB PO SCH (08:24)
[2016-10-11] MEDS: ACETAMINOPHEN 325 MG TABLET/CAPLET (TYLENOL) PO PRN (08:27)
[2016-10-11] MEDS ORDERED: HYDROcodone/APAP 5 MG/325 MG (LORTAB) TAB PO PRN (09:30)
[2016-10-11] MEDS: MECLIZINE 25 MG (ANTIVERT) TAB PO PRN ×2 (09:39→19:45)
[2016-10-11] MEDS: ONDANSETRON 4 MG/2 ML (SDV) Z0FRAN IV PRN (09:39)
--- NOTE | 2016-10-11 09:47 | Physical Therapy Daily Note ---
PT Daily Note-Current Subjective Patient is up in recliner with family present. Patient reports she is feeling much better with decrease c/o dizziness. Pain Numeric Pain Scale: 5-Moderate Pain Location: Soft Tissue Location Body Site: Occipital Pain Description: Ache, Pressure Mental Status Patient Orientation: Normal For Age Attachments: IV Transfers Functional [place] Measure 0=Not Assessed/NA 4=Minimal Assistance 1=Total Assistance 5=Supervision or Setup 2=Maximal Assistance 6=Modified [place] 3=Moderate Assistance 7=Complete IndependenceIRFPAI Quality Coding Scale 6 Independent with activity with or without an assistive device 5 Patient requires set up or clean up by helper. Patient completes activity by themselves 4 Supervision or touching assist (CGA). [place] provide cues , steadying assist 3 The helper provides less than half the effort to complete the activity 2 The helper provides more than half the effort to complete the activity 1 Dependent. The helper does all the effort to complete an activity 7 Patient refused to complete or attempt activity 9 The patient did not perform the activity before the current illness or injury 88 Not attempted due to Medical conditions or safety concerns Transfers (B, C, W/C) (FIM): 7 Scootin Sit to/from Stand: 7 Gait Training Gait (FIM): 7 Distance (FIM): 3=150 ft Distance: 400' Gait Level of Assist: 7 Gait Assistive Device: None safe and functional Treatments Massage to cervical region and facial sinus region to decrease pressure and occipital discomfort with decrease in symptoms after treatment. Ice Pack applied to cervical region for comfort after treatment. Assessment Patient is currently at independent LOF with all gross motor skills safely and has decrease in symptoms of dizziness, N & V. PT to dismiss patient from services at this time. PT Usp Goals Usp Goals PT Utility Accounts Director Goals Time Frame: Oct 14, 2016 Transfers (B,C,W/C) (FIM): 7 Gait (FIM): 7 Gait distance (FIM): 3=150 ft Gait Level of Assist: 7 PT Plan Treatment/Plan Treatment Plan: Discontinue PT, goals met Treatment Plan: Education, Other (massage/visual tracking exercises) Treatment Duration: Oct 14, 2016 Visits Per Week: 5 Time/GCodes Time In: 910 Time Out: 933 Total Billed Treatment Time: 23 Total Billed Treatment 1 visit Mas 15 min GT 8 min G Codes Necessary: Yes PT/OT Therapy GCodes Therapy Functional Limitation: Physical Therapy Test(s)/Tool used to determine: Level of Assistance Scale Functional Limitation-Current Charge Code: MOBCUR Modifier: CI Functional Limitation-Goal Charge Code: MOBGOAL Modifier: CH Functional Limitation-D/C Charge Codes: MOBIL Modifier: CH FLASH BOSCH PT Oct 11, 2016 09:47
[2016-10-11 10:39] LABS: BILIRUBIN,URINE NEGATIVE (NEGATIVE); KETONES,URINE NEGATIVE (NEGATIVE); LEUKOCYTE ESTERASE ,URINE 1+ (NEGATIVE); NITRITE,URINE NEGATIVE (NEGATIVE); PH,URINE 5 (5-9); PROTEIN,URINE NEGATIVE (NEGATIVE); UROBILINOGEN,URINE NORMAL (NORMAL)
[2016-10-11 10:46] LABS: SQUAMOUS EPITHELIAL CELL,UR RARE /HPF; WBC,URINE RARE /HPF
[2016-10-11] MEDS: NS IV 1000 ML 1,000 ML IV SCH (11:12)
[2016-10-11] MEDS: ENOXAPARIN 40 MG/0.4 ML (LOVENOX) SYR SC SCH (11:12)
--- NOTE | 2016-10-11 12:16 | Diagnostic Imaging Report ---
PROCEDURE: CT sinuses without contrast. TECHNIQUE: Multiple contiguous axial images were obtained through the sinuses without the use of intravenous contrast. Coronal and sagittal reformations were then performed. INDICATION: Dizziness. Sinus pressure. FINDINGS: There is a mucosal retention cyst seen in the upper aspect of the left maxillary sinus and mild mucosal thickening in the inferior aspect of the right maxillary sinus. There is a patent ostiomeatal complex bilaterally. Minimal mucosal thickening along the anterior ethmoidal air cells is seen bilaterally. The frontal sinuses appear clear. The sphenoidal sinuses demonstrate a minimal fluid level in the right sphenoidal sinus. The mastoid air cells and middle ear cavities are clear. IMPRESSION: Minimal sinus disease. Dictated by: Dictated on workstation # [id number]
[2016-10-11] MEDS: DIAZEPAM 2 MG (VALIUM) TAB PO SCH (21:13)
[2016-10-11] MEDS: traZODone 50 MG (DESYREL) TAB PO SCH (21:13)
[2016-10-12] VITALS: BP 111/56
[2016-10-12] MEDS: NS IV 1000 ML 1,000 ML IV SCH (03:46)
[2016-10-12 04:57] VITALS: BP 106/61
[2016-10-12] MEDS: OMEPRAZOLE 20 MG (PriLOSEC) CAP NON-FORMULARY PO SCH (05:36)
[2016-10-12] MEDS: cefTRIAXone INJECTION 1,000 MG in NS (IVPB) 50 ML IV SCH (05:36)
[2016-10-12] MEDS: MECLIZINE 25 MG (ANTIVERT) TAB PO PRN ×2 (07:45→14:18)
--- NOTE | 2016-10-12 07:51 | Progress Note (SOAP) ---
Subjective Subjective/Events-last exam patient feeling 90 percent better today. Dizziness has improved. Plan to discharge patient today. Nurse to call at 1 p.m. Acute labyrinthitis. Hypertension resolved. History of breast cancer. infection resolved Objective Exam Vital Signs Date Time Temp Pulse Resp B/P (MAP) Pulse Ox O2 Delivery O2 Flow Rate FiO2 10/12/16 04:57 97.2 75 12 106/61 93 Room Air 10/12/16 00:00 97.4 77 16 111/56 94 Room Air 10/11/16 21:00 146/83 10/11/16 19:45 98.5 88 20 160/91 95 Room Air 10/11/16 15:20 96.7 75 20 129/81 95 Room Air 10/11/16 12:00 97.6 74 20 153/85 97 Room Air 10/11/16 08:30 97.9 77 20 143/84 94 Room Air I & O 10/12/16 07:00 Intake Total 3600 ml Output Total 700 ml Balance 2900 ml Capillary Refill : Less Than 3 Seconds General Appearance: No Apparent Distress, WD/WN HEENT: Normal ENT Inspection Neck: Normal Inspection Respiratory: Chest Non Tender, Lungs Clear, Normal Breath Sounds, No Accessory Muscle Use, No Respiratory Distress Cardiovascular: Regular Rate, Rhythm, No Murmur Gastrointestinal: non tender, soft Results Lab Laboratory Tests 10/11/16 10:00: Urine Color YELLOW, Urine Clarity CLEAR, Urine pH 5, Urine Specific [place] 1.010L, Urine Protein NEGATIVE, Urine Glucose (UA) NEGATIVE, Urine Ketones NEGATIVE, Urine Nitrite NEGATIVE, Urine Bilirubin NEGATIVE, Urine Urobilinogen NORMAL, Urine Leukocyte Esterase 1+H, Urine RBC (Auto) NEGATIVE, Urine RBC NONE , Urine WBC RARE, Urine Squamous Epithelial Cells RARE, Urine Crystals NONE, Urine Bacteria NEGATIVE, Urine Casts NONE, Urine Mucus NEGATIVE, Urine Culture Indicated NO Microbiology 10/09/16 Urine Culture - Final, Complete Assessment/Plan Assessment/Plan Assess & Plan/Chief Complaint dizziness. Nausea and vomiting. To advance diet. Still has dizziness especially when head of the bed go straight . . 10/11/16. Patient still has dizziness. Patient wobbly when walks still. Patient consulted by ENT. Patient has acute labyrinthitis right side. Patient slowly improving Patient not safe to go home yetarea . 4/19/17. Dizziness. Nausea and vomiting. infection. Labyrinthitis acute.. CAT scan of sinus shows minimal sinus disease. Patient to be seen in the office in one week. Patient to see Dr. Mata in 3 weeks when he doesn't audiogram. Patient sent home on Valium 2 mg at at bedtime and meclizine Clinical Quality Measures DVT/VTE Risk/Contraindication: Risk Factor Score Per Nursin RFS Level Per Nursing on Admit: 3=High PIEDAD DORAN DO Oct 12, 2016 07:51
[2016-10-12 08:15] VITALS: BP 126/60
[2016-10-12] MEDS: TELMISARTAN 40 MG (MICARDIS) TAB PO SCH (08:20)
[2016-10-12 12:00] VITALS: BP 132/69
[2016-10-12] MEDS: ENOXAPARIN 40 MG/0.4 ML (LOVENOX) SYR SC SCH (12:30)
[2016-10-12] MEDS ORDERED: DIAZ2TAB2 PO (13:03)
[2016-10-12] MEDS ORDERED: MECL-106 PO (13:03)
--- NOTE | 2016-10-14 06:52 | Clinic Account Progress/Dx ---
Clinic Account Progress/Dx DIAGNOSIS: Diagnosis acute labyrinthitis right side. Malignant neoplasm of breast. infection. Dizziness. Essential hypertension. PIEDAD DORAN DO Oct 14, 2016 6:52 am
== END 2016-10-12 07:51 | disposition home or self-care (01) ==
LOC: EDUNIT# 03:18 → ER 03:22 → 4TH 05:32 → UNDOADMOB 05:32 → 4TH 06:20 → ENPENDDIS 10-12 15:00
PROVIDERS: ADMIT Family Medicine; ATTEND Family Medicine
DX: H83.01 Labyrinthitis, right ear (principal); N39.0 Urinary tract infection, site not specified; C50.911 Malignant neoplasm of unspecified site of right female breast; N28.9 Disorder of kidney and ureter, unspecified; I10 Essential (primary) hypertension; Z90.11 Acquired absence of right breast and nipple; Z90.12 Acquired absence of left breast and nipple
CPT/HCPCS: 36415; 70450; 70486; 71010; 80048; 80053; 81000; 83735; 84443; 84484; 85025; 85027; 85379; 85610; 85730; 87088; 96374; 96375; 96376; G0378

== ENCOUNTER 2016-10-20 09:13 | Outpatient (RCR) | payer MEDICARE ==
[~2016-10-20 09:13] MED LIST changes: +CA C1TAB84 PO; +CALC-6 PO; +CHOL5000 PO; +DIAZ2TAB2 PO; +FULV250D2 IM; +FULVESTRANT 250 MG/5 ML SYR (CANCER CENTER) IM SCH; +MECL-106 PO; +OMEG500C PO
== END 2016-10-26 | disposition home or self-care (01) ==
LOC: ONC 09:13
PROVIDERS: ATTEND Internal Medicine Hematology & Oncology
DX: C50.911 Malignant neoplasm of unspecified site of right female breast (principal); J91.0 Malignant pleural effusion; N18.3 Chronic kidney disease, stage 3 (moderate); M85.80 Other specified disorders of bone density and structure, unspecified site; Z92.21 Personal history of antineoplastic chemotherapy; Z90.11 Acquired absence of right breast and nipple; Z79.818 Long term (current) use of other agents affecting estrogen receptors and estrogen levels
CPT/HCPCS: 96402

== ENCOUNTER 2017-01-12 10:50 | Outpatient (RCR) | payer MEDICARE, BC ==
[2016-11-10 09:01] LABS: BASOPHILS # (AUTO) 0.1 10^3/uL (0.0-0.1); BASOPHILS % (AUTO) 1 % (0-10); EOSINOPHILS # (AUTO) 0.2 10^3/uL (0.0-0.3); EOSINOPHILS % (AUTO) 2 % (0-10); LYMPHOCYTES # (AUTO) 1.9 X 10^3 (1.0-4.0); LYMPHOCYTES % (AUTO) 23 % (12-44); MEAN CORPUSCULAR HEMOGLOBIN 27 PG (25-34); MEAN CORPUSCULAR HGB CONC 32 G/DL (32-36); MEAN CORPUSCULAR VOLUME 87 FL (80-99); MEAN PLATELET VOLUME 10.4 FL (7.4-10.4); MONOCYTES # (AUTO) 0.6 X 10^3 (0.0-1.0); MONOCYTES % (AUTO) 7 % (0-12); NEUTROPHILS # (AUTO) 5.8 X 10^3 (1.8-7.8); NEUTROPHILS % (AUTO) 68 % (42-75); PLATELET COUNT 253 10^3/uL (130-400); RED BLOOD COUNT 4.81 10^6/uL (4.35-5.85); WHITE BLOOD COUNT 8.6 10^3/uL (4.3-11.0)
[2016-11-10 09:25] LABS: ALBUMIN 4.1 G/DL (3.2-4.5); BILIRUBIN,TOTAL 0.6 MG/DL (0.1-1.0); CALCIUM 9.8 MG/DL (8.5-10.1); CREATININE SERUM 1.31 MG/DL (0.60-1.30); POTASSIUM 4.3 MMOL/L (3.6-5.0); TOTAL PROTEIN 6.9 G/DL (6.4-8.2)
== END 2017-02-08 | disposition home or self-care (01) ==
LOC: ONC 10:50
PROVIDERS: ATTEND Internal Medicine Hematology & Oncology
DX: C50.911 Malignant neoplasm of unspecified site of right female breast (principal); J91.0 Malignant pleural effusion; N18.3 Chronic kidney disease, stage 3 (moderate); M85.80 Other specified disorders of bone density and structure, unspecified site; Z92.21 Personal history of antineoplastic chemotherapy; Z90.11 Acquired absence of right breast and nipple; Z79.818 Long term (current) use of other agents affecting estrogen receptors and estrogen levels
CPT/HCPCS: 36415; 80053; 85025; 86300; 96402; 99213

== ENCOUNTER 2017-03-08 12:43 | Outpatient (RCR) | payer MEDICARE | END 2017-03-25 | disposition home or self-care (01) | LOC: ONC 12:43 | PROVIDERS: ATTEND Internal Medicine Hematology & Oncology | DX: C50.911 Malignant neoplasm of unspecified site of right female breast (principal); J91.0 Malignant pleural effusion; I12.9 Hypertensive chronic kidney disease with stage 1 through stage 4 chronic kidney disease, or unspecified chronic kidney disease; N18.3 Chronic kidney disease, stage 3 (moderate); M85.80 Other specified disorders of bone density and structure, unspecified site; E55.9 Vitamin D deficiency, unspecified; K21.9 Gastro-esophageal reflux disease without esophagitis; K44.9 Diaphragmatic hernia without obstruction or gangrene; Z92.21 Personal history of antineoplastic chemotherapy; Z90.11 Acquired absence of right breast and nipple; Z79.818 Long term (current) use of other agents affecting estrogen receptors and estrogen levels | CPT/HCPCS: 96402 ==

== ENCOUNTER 2017-06-28 09:56 | Outpatient (RCR) | payer MEDICARE ==
[2017-05-24 14:51] LABS: BASOPHILS % (AUTO) 0 % (0-10); EOSINOPHILS # (AUTO) 0.3 10^3/uL (0.0-0.3); EOSINOPHILS % (AUTO) 2 % (0-10); HEMATOCRIT 40 % (35-52); HEMOGLOBIN 12.8 G/DL (11.5-16.0); LYMPHOCYTES # (AUTO) 2.6 X 10^3 (1.0-4.0); LYMPHOCYTES % (AUTO) 24 % (12-44); MEAN CORPUSCULAR HEMOGLOBIN 28 PG (25-34); MEAN CORPUSCULAR HGB CONC 32 G/DL (32-36); MEAN CORPUSCULAR VOLUME 88 FL (80-99); MEAN PLATELET VOLUME 10.4 FL (7.4-10.4); MONOCYTES # (AUTO) 0.6 X 10^3 (0.0-1.0); MONOCYTES % (AUTO) 6 % (0-12); NEUTROPHILS % (AUTO) 67 % (42-75); PLATELET COUNT 225 10^3/uL (130-400); RED BLOOD COUNT 4.52 10^6/uL (4.35-5.85); WHITE BLOOD COUNT 10.5 10^3/uL (4.3-11.0)
[2017-05-24 15:15] LABS: ALBUMIN 4.1 GM/DL (3.2-4.5); BILIRUBIN,TOTAL 0.6 MG/DL (0.1-1.0); CREATININE SERUM 1.33 MG/DL (0.60-1.30); POTASSIUM 4.6 MMOL/L (3.6-5.0); TOTAL PROTEIN 7.3 GM/DL (6.4-8.2)
== END 2017-07-05 | disposition home or self-care (01) ==
LOC: ONC 09:56
PROVIDERS: ATTEND Internal Medicine Hematology & Oncology
DX: C50.911 Malignant neoplasm of unspecified site of right female breast (principal); J91.0 Malignant pleural effusion; I12.9 Hypertensive chronic kidney disease with stage 1 through stage 4 chronic kidney disease, or unspecified chronic kidney disease; N18.3 Chronic kidney disease, stage 3 (moderate); M85.80 Other specified disorders of bone density and structure, unspecified site; E55.9 Vitamin D deficiency, unspecified; K21.9 Gastro-esophageal reflux disease without esophagitis; K44.9 Diaphragmatic hernia without obstruction or gangrene; Z92.21 Personal history of antineoplastic chemotherapy; Z90.11 Acquired absence of right breast and nipple; Z79.818 Long term (current) use of other agents affecting estrogen receptors and estrogen levels; Z79.899 Other long term (current) drug therapy
CPT/HCPCS: 80053; 85025; 86300; 96402

== ENCOUNTER 2018-01-10 09:44 | Outpatient (RCR) | payer MEDICARE ==
[2017-12-13 09:49] LABS: BASOPHILS % (AUTO) 0 % (0-10); EOSINOPHILS # (AUTO) 0.2 10^3/uL (0.0-0.3); EOSINOPHILS % (AUTO) 2 % (0-10); HEMATOCRIT 41 % (35-52); HEMOGLOBIN 13.7 G/DL (11.5-16.0); LYMPHOCYTES # (AUTO) 2.1 X 10^3 (1.0-4.0); LYMPHOCYTES % (AUTO) 25 % (12-44); MEAN CORPUSCULAR HEMOGLOBIN 29 PG (25-34); MEAN CORPUSCULAR HGB CONC 33 G/DL (32-36); MEAN CORPUSCULAR VOLUME 86 FL (80-99); MEAN PLATELET VOLUME 10.3 FL (7.4-10.4); MONOCYTES # (AUTO) 0.5 X 10^3 (0.0-1.0); MONOCYTES % (AUTO) 6 % (0-12); NEUTROPHILS # (AUTO) 5.8 X 10^3 (1.8-7.8); NEUTROPHILS % (AUTO) 67 % (42-75); PLATELET COUNT 231 10^3/uL (130-400); RED BLOOD COUNT 4.77 10^6/uL (4.35-5.85); RED CELL DISTRIBUTION WIDTH 13.7 % (10.0-14.5); WHITE BLOOD COUNT 8.6 10^3/uL (4.3-11.0)
[2017-12-13 10:06] LABS: ALBUMIN 4.3 GM/DL (3.2-4.5); BILIRUBIN,TOTAL 0.6 MG/DL (0.1-1.0); CALCIUM 9.7 MG/DL (8.5-10.1); CREATININE SERUM 1.29 MG/DL (0.60-1.30); POTASSIUM 4.7 MMOL/L (3.6-5.0); TOTAL PROTEIN 7.2 GM/DL (6.4-8.2)
== END 2018-02-07 09:25 | disposition home or self-care (01) ==
LOC: ONC 09:44
PROVIDERS: ATTEND Internal Medicine Hematology & Oncology
DX: C50.911 Malignant neoplasm of unspecified site of right female breast (principal); J91.0 Malignant pleural effusion; I12.9 Hypertensive chronic kidney disease with stage 1 through stage 4 chronic kidney disease, or unspecified chronic kidney disease; N18.3 Chronic kidney disease, stage 3 (moderate); M85.80 Other specified disorders of bone density and structure, unspecified site; E55.9 Vitamin D deficiency, unspecified; K21.9 Gastro-esophageal reflux disease without esophagitis; K44.9 Diaphragmatic hernia without obstruction or gangrene; Z92.21 Personal history of antineoplastic chemotherapy; Z90.11 Acquired absence of right breast and nipple; Z79.818 Long term (current) use of other agents affecting estrogen receptors and estrogen levels; Z79.899 Other long term (current) drug therapy
CPT/HCPCS: 36415; 80053; 82306; 85025; 86300; 96402

== ENCOUNTER 2018-03-07 09:00 | Outpatient (RCR) | payer MEDICARE | END 2018-04-04 08:58 | disposition home or self-care (01) | LOC: ONC 09:00 | PROVIDERS: ATTEND Internal Medicine Hematology & Oncology | DX: C50.911 Malignant neoplasm of unspecified site of right female breast (principal); J91.0 Malignant pleural effusion; I12.9 Hypertensive chronic kidney disease with stage 1 through stage 4 chronic kidney disease, or unspecified chronic kidney disease; N18.3 Chronic kidney disease, stage 3 (moderate); M85.80 Other specified disorders of bone density and structure, unspecified site; E55.9 Vitamin D deficiency, unspecified; K21.9 Gastro-esophageal reflux disease without esophagitis; K44.9 Diaphragmatic hernia without obstruction or gangrene; Z92.21 Personal history of antineoplastic chemotherapy; Z90.11 Acquired absence of right breast and nipple; Z79.818 Long term (current) use of other agents affecting estrogen receptors and estrogen levels; Z79.899 Other long term (current) drug therapy | CPT/HCPCS: 96402 ==

== ENCOUNTER 2018-06-27 10:02 | Outpatient (RCR) | payer MEDICARE ==
[2018-05-30 11:00] LABS: BASOPHILS % (AUTO) 1 % (0-10); EOSINOPHILS # (AUTO) 0.1 10^3/uL (0.0-0.3); EOSINOPHILS % (AUTO) 1 % (0-10); HEMATOCRIT 42 % (35-52); HEMOGLOBIN 13.2 G/DL (11.5-16.0); LYMPHOCYTES # (AUTO) 1.9 X 10^3 (1.0-4.0); LYMPHOCYTES % (AUTO) 24 % (12-44); MEAN CORPUSCULAR HEMOGLOBIN 28 PG (25-34); MEAN CORPUSCULAR HGB CONC 32 G/DL (32-36); MEAN CORPUSCULAR VOLUME 88 FL (80-99); MEAN PLATELET VOLUME 10.3 FL (7.4-10.4); MONOCYTES # (AUTO) 0.6 X 10^3 (0.0-1.0); MONOCYTES % (AUTO) 8 % (0-12); NEUTROPHILS # (AUTO) 5.3 X 10^3 (1.8-7.8); NEUTROPHILS % (AUTO) 67 % (42-75); PLATELET COUNT 238 10^3/uL (130-400); RED CELL DISTRIBUTION WIDTH 13.4 % (10.0-14.5)
[2018-05-30 11:23] LABS: ALBUMIN 4.3 GM/DL (3.2-4.5); BILIRUBIN,TOTAL 0.4 MG/DL (0.1-1.0); CALCIUM 9.8 MG/DL (8.5-10.1); CREATININE SERUM 1.2 MG/DL (0.60-1.30); POTASSIUM 4.7 MMOL/L (3.6-5.0); TOTAL PROTEIN 7.2 GM/DL (6.4-8.2)
== END 2018-07-03 | disposition home or self-care (01) ==
LOC: ONC 10:02
PROVIDERS: ATTEND Internal Medicine Hematology & Oncology
DX: C50.911 Malignant neoplasm of unspecified site of right female breast (principal); J91.0 Malignant pleural effusion; I12.9 Hypertensive chronic kidney disease with stage 1 through stage 4 chronic kidney disease, or unspecified chronic kidney disease; N18.3 Chronic kidney disease, stage 3 (moderate); M85.80 Other specified disorders of bone density and structure, unspecified site; E55.9 Vitamin D deficiency, unspecified; K21.9 Gastro-esophageal reflux disease without esophagitis; K44.9 Diaphragmatic hernia without obstruction or gangrene; Z92.21 Personal history of antineoplastic chemotherapy; Z90.11 Acquired absence of right breast and nipple; Z79.818 Long term (current) use of other agents affecting estrogen receptors and estrogen levels; Z79.899 Other long term (current) drug therapy
CPT/HCPCS: 36415; 80053; 85025; 96402

== ENCOUNTER 2018-10-16 08:48 | Outpatient (RCR) | payer MEDICARE | END 2018-10-23 | disposition home or self-care (01) | LOC: ONC 08:48 | PROVIDERS: ATTEND Internal Medicine Hematology & Oncology | DX: C50.911 Malignant neoplasm of unspecified site of right female breast (principal); J91.0 Malignant pleural effusion; I12.9 Hypertensive chronic kidney disease with stage 1 through stage 4 chronic kidney disease, or unspecified chronic kidney disease; N18.3 Chronic kidney disease, stage 3 (moderate); M85.80 Other specified disorders of bone density and structure, unspecified site; E55.9 Vitamin D deficiency, unspecified; K21.9 Gastro-esophageal reflux disease without esophagitis; K44.9 Diaphragmatic hernia without obstruction or gangrene; Z92.21 Personal history of antineoplastic chemotherapy; Z90.11 Acquired absence of right breast and nipple; Z79.818 Long term (current) use of other agents affecting estrogen receptors and estrogen levels; Z79.899 Other long term (current) drug therapy | CPT/HCPCS: 96402 ==

== ENCOUNTER 2019-02-06 09:44 | Outpatient (RCR) | payer MEDICARE ==
[2018-12-12 14:00] LABS: BASOPHILS % (AUTO) 1 % (0-10); EOSINOPHILS # (AUTO) 0.2 10^3/uL (0.0-0.3); EOSINOPHILS % (AUTO) 2 % (0-10); HEMATOCRIT 41 % (35-52); HEMOGLOBIN 13.3 G/DL (11.5-16.0); LYMPHOCYTES # (AUTO) 2.3 X 10^3 (1.0-4.0); LYMPHOCYTES % (AUTO) 28 % (12-44); MEAN CORPUSCULAR HEMOGLOBIN 28 PG (25-34); MEAN CORPUSCULAR HGB CONC 32 G/DL (32-36); MEAN CORPUSCULAR VOLUME 88 FL (80-99); MEAN PLATELET VOLUME 10.6 FL (7.4-10.4); MONOCYTES # (AUTO) 0.5 X 10^3 (0.0-1.0); MONOCYTES % (AUTO) 6 % (0-12); NEUTROPHILS # (AUTO) 5.3 X 10^3 (1.8-7.8); NEUTROPHILS % (AUTO) 64 % (42-75); PLATELET COUNT 281 10^3/uL (130-400); RED CELL DISTRIBUTION WIDTH 14.2 % (10.0-14.5); WHITE BLOOD COUNT 8.3 10^3/uL (4.3-11.0)
[2018-12-12 15:41] LABS: ALBUMIN 4.1 GM/DL (3.2-4.5); BILIRUBIN,TOTAL 0.4 MG/DL (0.1-1.0); CALCIUM 9.7 MG/DL (8.5-10.1); CREATININE SERUM 1.33 MG/DL (0.60-1.30)
== END 2019-02-11 | disposition home or self-care (01) ==
LOC: ONC 09:44
PROVIDERS: ATTEND Internal Medicine Hematology & Oncology
DX: C50.911 Malignant neoplasm of unspecified site of right female breast (principal); J91.0 Malignant pleural effusion; I12.9 Hypertensive chronic kidney disease with stage 1 through stage 4 chronic kidney disease, or unspecified chronic kidney disease; N18.3 Chronic kidney disease, stage 3 (moderate); M85.80 Other specified disorders of bone density and structure, unspecified site; E55.9 Vitamin D deficiency, unspecified; K21.9 Gastro-esophageal reflux disease without esophagitis; K44.9 Diaphragmatic hernia without obstruction or gangrene; Z92.21 Personal history of antineoplastic chemotherapy; Z90.11 Acquired absence of right breast and nipple; Z79.818 Long term (current) use of other agents affecting estrogen receptors and estrogen levels; Z79.899 Other long term (current) drug therapy
CPT/HCPCS: 36415; 80053; 85025; 96402

== ENCOUNTER 2019-05-30 08:34 | Outpatient (RCR) | payer MEDICARE ==
[2019-05-30 08:58] LABS: BASOPHILS # (AUTO) 0.1 10^3/uL (0.0-0.1); BASOPHILS % (AUTO) 1 % (0-10); EOSINOPHILS # (AUTO) 0.1 10^3/uL (0.0-0.3); EOSINOPHILS % (AUTO) 2 % (0-10); HEMATOCRIT 44 % (35-52); HEMOGLOBIN 13.8 G/DL (11.5-16.0); LYMPHOCYTES # (AUTO) 1.9 X 10^3 (1.0-4.0); LYMPHOCYTES % (AUTO) 25 % (12-44); MEAN CORPUSCULAR HEMOGLOBIN 28 PG (25-34); MEAN CORPUSCULAR HGB CONC 32 G/DL (32-36); MEAN CORPUSCULAR VOLUME 89 FL (80-99); MEAN PLATELET VOLUME 10.3 FL (7.4-10.4); MONOCYTES # (AUTO) 0.5 X 10^3 (0.0-1.0); MONOCYTES % (AUTO) 7 % (0-12); NEUTROPHILS # (AUTO) 5.1 X 10^3 (1.8-7.8); NEUTROPHILS % (AUTO) 66 % (42-75); PLATELET COUNT 333 10^3/uL (130-400); RED CELL DISTRIBUTION WIDTH 15.1 % (10.0-14.5); WHITE BLOOD COUNT 7.7 10^3/uL (4.3-11.0)
[2019-05-30 09:25] LABS: ALBUMIN 4.2 GM/DL (3.2-4.5); BILIRUBIN,TOTAL 0.5 MG/DL (0.1-1.0); CALCIUM 9.5 MG/DL (8.5-10.1); CREATININE SERUM 1.19 MG/DL (0.60-1.30); TOTAL PROTEIN 6.8 GM/DL (6.4-8.2)
== END 2019-06-04 | disposition home or self-care (01) ==
LOC: ONC 08:34
PROVIDERS: ATTEND Internal Medicine Hematology & Oncology
DX: C50.911 Malignant neoplasm of unspecified site of right female breast (principal); J91.0 Malignant pleural effusion; I12.9 Hypertensive chronic kidney disease with stage 1 through stage 4 chronic kidney disease, or unspecified chronic kidney disease; N18.3 Chronic kidney disease, stage 3 (moderate); M85.80 Other specified disorders of bone density and structure, unspecified site; E55.9 Vitamin D deficiency, unspecified; K21.9 Gastro-esophageal reflux disease without esophagitis; K44.9 Diaphragmatic hernia without obstruction or gangrene; Z92.21 Personal history of antineoplastic chemotherapy; Z90.11 Acquired absence of right breast and nipple; Z79.818 Long term (current) use of other agents affecting estrogen receptors and estrogen levels; Z79.899 Other long term (current) drug therapy
CPT/HCPCS: 80053; 82306; 85025; 96401; 96402

== ENCOUNTER 2019-09-18 09:24 | Outpatient (RCR) | payer MEDICARE ==
[~2019-09-18 09:24] MED LIST changes: -MECL-106 PO; +MECL-149 PO
== END 2019-09-25 | disposition home or self-care (01) ==
LOC: ONC 09:24
PROVIDERS: ATTEND Internal Medicine Hematology & Oncology
DX: C50.911 Malignant neoplasm of unspecified site of right female breast (principal); J91.0 Malignant pleural effusion; I12.9 Hypertensive chronic kidney disease with stage 1 through stage 4 chronic kidney disease, or unspecified chronic kidney disease; N18.3 Chronic kidney disease, stage 3 (moderate); M85.80 Other specified disorders of bone density and structure, unspecified site; E55.9 Vitamin D deficiency, unspecified; K21.9 Gastro-esophageal reflux disease without esophagitis; K44.9 Diaphragmatic hernia without obstruction or gangrene; Z92.21 Personal history of antineoplastic chemotherapy; Z90.11 Acquired absence of right breast and nipple; Z79.818 Long term (current) use of other agents affecting estrogen receptors and estrogen levels; Z79.899 Other long term (current) drug therapy
CPT/HCPCS: 96402

== ENCOUNTER → 2019-12-24 | Outpatient (CLI) | payer MEDICARE ==
[~2019-12-24] MED LIST changes: -FULVESTRANT 250 MG/5 ML SYR (CANCER CENTER) IM SCH
--- NOTE | 2019-12-24 11:21 | Diagnostic Imaging Report ---
INDICATION: Postmenopausal state, screening for osteopenia. COMPARISON: 12/21/2017. FINDINGS: AP Spine L1-L4: [BMD (g/cm2): 1.098] [T-Score: -0.8] [Z-Score: 0.6] [BMD Previous: 1.120] [BMD % Change: -2.0] LT Hip Neck: [BMD (g/cm2): 0.701] [T-Score: -2.4] [Z-Score: -0.7] LT Hip Total: [BMD (g/cm2):0.803] [T-Score:-1.6] [Z-Score: -0.1] [BMD Previous: 0.832] [BMD % Change: -3.5] RT Hip Neck: [BMD (g/cm2):0.764] [T-Score:-2.0] [Z-Score:-0.3] RT Hip Total: [BMD (g/cm2):0.812] [T-score:-1.6] [Z-Score:-0.1] [BMD Previous:0.852] [BMD % Change:-4.7] *Indicates significant change from prior examination based on 95% confidence level. World Health Organization criteria for BMD interpretation classify patients as Normal (T-score at or above -1.0), Osteopenic (T-score between -1.0 and -2.5) or Osteoporotic (T-score at or below -2.5). LIMITATIONS AND MODIFICATION: None. FRACTURE RISK (FRAX SCORE): The ten year probability of (%): Major Osteoporotic Fracture: [15.9] Hip Fracture: [4.7] IMPRESSION: 1. Osteopenia (Low bone mass). 2. No significant change in bone mineral density since prior examination. 3. See below National Osteoporosis Foundation guidelines on when to potentially initiate pharmacologic therapy. Based on the National Osteoporosis Foundation Guidelines, pharmacologic treatment should be initiated in any of the following, unless clinical conditions suggest otherwise: * Any patient with prior fragility fracture of the hip or vertebrae. A spine fracture indicates 5X risk for subsequent spine fracture and 2X risk for subsequent hip fracture. * Osteoporosis (T-score <-2.5). * Postmenopausal women and men age 50 and older with low bone mass/osteopenia (T-score between -1.0 and -2.5) by DXA and 10-year major osteoporotic fracture greater than 20% or a 10-year probability of hip fracture greater than 3%. These fracture risks are supplied above in the FRAX score, if applicable. * Clinician judgement and/or patient preferences may indicate treatment for people with 10-year fracture probabilities above or below these levels. Dictated by: Dictated on workstation # [id number]
== END ==
LOC: RAD 09:43
PROVIDERS: ATTEND Internal Medicine Hematology & Oncology
DX: Z13.820 Encounter for screening for osteoporosis (principal); M85.88 Other specified disorders of bone density and structure, other site; C50.919 Malignant neoplasm of unspecified site of unspecified female breast; C78.2 Secondary malignant neoplasm of pleura; Z79.818 Long term (current) use of other agents affecting estrogen receptors and estrogen levels; Z78.0 Asymptomatic menopausal state
CPT/HCPCS: 77080

== ENCOUNTER 2020-01-08 09:04 | Outpatient (RCR) | payer MEDICARE ==
[2019-11-14 11:05] LABS: BASOPHILS % (AUTO) 1 % (0-10); EOSINOPHILS # (AUTO) 0.1 10^3/uL (0.0-0.3); EOSINOPHILS % (AUTO) 2 % (0-10); HEMATOCRIT 46 % (35-52); HEMOGLOBIN 14.6 G/DL (11.5-16.0); LYMPHOCYTES % (AUTO) 25 % (12-44); MEAN CORPUSCULAR HEMOGLOBIN 28 PG (25-34); MEAN CORPUSCULAR HGB CONC 32 G/DL (32-36); MEAN CORPUSCULAR VOLUME 88 FL (80-99); MEAN PLATELET VOLUME 10.6 FL (7.4-10.4); MONOCYTES # (AUTO) 0.6 X 10^3 (0.0-1.0); MONOCYTES % (AUTO) 7 % (0-12); NEUTROPHILS # (AUTO) 5.4 X 10^3 (1.8-7.8); NEUTROPHILS % (AUTO) 66 % (42-75); PLATELET COUNT 323 10^3/uL (130-400); RED CELL DISTRIBUTION WIDTH 16.1 % (10.0-14.5); WHITE BLOOD COUNT 8.2 10^3/uL (4.3-11.0)
[2019-11-14 11:25] LABS: ALBUMIN 4.2 GM/DL (3.2-4.5); BILIRUBIN,TOTAL 0.5 MG/DL (0.1-1.0); CALCIUM 9.6 MG/DL (8.5-10.1); CREATININE SERUM 1.26 MG/DL (0.60-1.30); POTASSIUM 5.2 MMOL/L (3.6-5.0); TOTAL PROTEIN 7.2 GM/DL (6.4-8.2)
[~2020-01-08 09:04] MED LIST changes: +FULVESTRANT 250 MG/5 ML SYR (CANCER CENTER) IM SCH
== END 2020-01-14 | disposition home or self-care (01) ==
LOC: ONC 09:04
PROVIDERS: ATTEND Internal Medicine Hematology & Oncology
DX: C50.411 Malignant neoplasm of upper-outer quadrant of right female breast (principal); J91.0 Malignant pleural effusion; I12.9 Hypertensive chronic kidney disease with stage 1 through stage 4 chronic kidney disease, or unspecified chronic kidney disease; M85.80 Other specified disorders of bone density and structure, unspecified site; E55.9 Vitamin D deficiency, unspecified; K21.9 Gastro-esophageal reflux disease without esophagitis; K44.9 Diaphragmatic hernia without obstruction or gangrene; N18.3 Chronic kidney disease, stage 3 (moderate); Z90.11 Acquired absence of right breast and nipple; Z79.818 Long term (current) use of other agents affecting estrogen receptors and estrogen levels; Z79.899 Other long term (current) drug therapy; Z92.21 Personal history of antineoplastic chemotherapy
CPT/HCPCS: 80053; 82306; 85025; 86300; 96402

== ENCOUNTER 2020-04-30 09:06 | Outpatient (RCR) | payer MEDICARE ==
[~2020-04-30 09:06] MED LIST changes: -CALC-6 PO; +CALC1TAB84 PO
[2020-04-30 09:19] LABS: BASOPHILS # (AUTO) 0.1 10^3/uL (0.0-0.1); BASOPHILS % (AUTO) 1 % (0-10); EOSINOPHILS # (AUTO) 0.1 10^3/uL (0.0-0.3); EOSINOPHILS % (AUTO) 1 % (0-10); HEMATOCRIT 47 % (35-52); HEMOGLOBIN 14.3 g/dL (11.5-16.0); LYMPHOCYTES # (AUTO) 1.9 10^3/uL (1.0-4.0); LYMPHOCYTES % (AUTO) 21 % (12-44); MEAN CORPUSCULAR HEMOGLOBIN 28 pg (25-34); MEAN CORPUSCULAR HGB CONC 31 g/dL (32-36); MEAN CORPUSCULAR VOLUME 90 fL (80-99); MEAN PLATELET VOLUME 10.2 fL (9.0-12.2); MONOCYTES # (AUTO) 0.5 10^3/uL (0.0-1.0); MONOCYTES % (AUTO) 5 % (0-12); NEUTROPHILS # (AUTO) 6.5 10^3/uL (1.8-7.8); NEUTROPHILS % (AUTO) 72 % (42-75); PLATELET COUNT 390 10^3/uL (130-400); WHITE BLOOD COUNT 9.1 10^3/uL (4.3-11.0)
[2020-04-30 09:41] LABS: ALBUMIN 4.1 GM/DL (3.2-4.5); BILIRUBIN,TOTAL 0.5 MG/DL (0.1-1.0); CALCIUM 9.5 MG/DL (8.5-10.1); CREATININE SERUM 1.29 MG/DL (0.60-1.30); POTASSIUM 4.9 MMOL/L (3.6-5.0); TOTAL PROTEIN 7.1 GM/DL (6.4-8.2)
== END 2020-05-05 | disposition home or self-care (01) ==
LOC: ONC 09:06
PROVIDERS: ATTEND Internal Medicine Hematology & Oncology
DX: Z51.11 Encounter for antineoplastic chemotherapy (principal); C50.411 Malignant neoplasm of upper-outer quadrant of right female breast; J91.0 Malignant pleural effusion; I12.9 Hypertensive chronic kidney disease with stage 1 through stage 4 chronic kidney disease, or unspecified chronic kidney disease; M85.80 Other specified disorders of bone density and structure, unspecified site; E55.9 Vitamin D deficiency, unspecified; K21.9 Gastro-esophageal reflux disease without esophagitis; K44.9 Diaphragmatic hernia without obstruction or gangrene; N18.30 Chronic kidney disease, stage 3 unspecified; Z90.11 Acquired absence of right breast and nipple; Z79.818 Long term (current) use of other agents affecting estrogen receptors and estrogen levels; Z79.899 Other long term (current) drug therapy; Z92.21 Personal history of antineoplastic chemotherapy
CPT/HCPCS: 80053; 85025; 86300; 96402

== ENCOUNTER 2020-06-25 09:05 | Outpatient (RCR) | payer MEDICARE ==
[~2020-06-25 09:05] MED LIST changes: +DENOSUMAB 60 MG/1 ML (PROLIA) CANCER CTR SQ SCH
[2020-06-25] MEDS ORDERED: FULVESTRANT 250 MG/5 ML SYR (CANCER CENTER) IM SCH (09:29)
== END 2020-07-17 12:43 | disposition home or self-care (01) ==
LOC: ONC 09:05
PROVIDERS: ATTEND Internal Medicine Hematology & Oncology
DX: Z51.11 Encounter for antineoplastic chemotherapy (principal); C50.411 Malignant neoplasm of upper-outer quadrant of right female breast; J91.0 Malignant pleural effusion; I12.9 Hypertensive chronic kidney disease with stage 1 through stage 4 chronic kidney disease, or unspecified chronic kidney disease; M85.80 Other specified disorders of bone density and structure, unspecified site; E55.9 Vitamin D deficiency, unspecified; K21.9 Gastro-esophageal reflux disease without esophagitis; K44.9 Diaphragmatic hernia without obstruction or gangrene; N18.30 Chronic kidney disease, stage 3 unspecified; Z90.11 Acquired absence of right breast and nipple; Z79.818 Long term (current) use of other agents affecting estrogen receptors and estrogen levels; Z79.899 Other long term (current) drug therapy; Z92.21 Personal history of antineoplastic chemotherapy
CPT/HCPCS: 96402

== ENCOUNTER → 2020-07-28 | Outpatient (CLI) | payer MEDICARE ==
[~2020-07-28] MED LIST changes: +BARIUM SUSPENSION 2.1% (VANILLA SILQ) 450 ML PO ONE; +CATHETER FLUSH 10 ML SYR IV PRN; -DENOSUMAB 60 MG/1 ML (PROLIA) CANCER CTR SQ SCH; -FULVESTRANT 250 MG/5 ML SYR (CANCER CENTER) IM SCH; +HOLD METFORMIN - RECEIVED CONTRAST 20 ML VIAL IV SCH; +IOHEXOL 350 MG/ML 100 ML (OMNIPAQUE 350) VIAL IV ONE; +NS 100 ML (IVPB) BAG IV ONE
[2020-07-28] MEDS: CATHETER FLUSH 10 ML SYR IV PRN ×2 (08:51→09:11)
--- NOTE | 2020-07-28 09:37 | Diagnostic Imaging Report ---
EXAMINATION: CT Chest with intravenous contrast, CT Abdomen and Pelvis without and with intravenous contrast. TECHNIQUE: Pre and post intravenous contrast axial imaging of the abdomen and pelvis and post contrast axial imaging of the chest were performed. All CT scans use one or more of the following dose optimizing techniques: automated exposure control, MA and/or KvP adjustment based on a patient size and exam type, or iterative reconstruction. HISTORY: Breast cancer COMPARISON: 04/01/2016 FINDINGS: There is no edema or pneumonia. No pleural effusion. No pneumothorax. No suspicious nodules. There is developing atelectasis in left lower lobe. Calcified areas of pleural scarring in the right upper zone may be related to prior hemothorax or empyema. There is no axillary or supraclavicular lymphadenopathy. There is no mediastinal lymphadenopathy. There is a very large thyroid goiter extending into the upper mediastinum. The mediastinal portion measures 5.4 x 3.5 cm and exerts mass effect on the trachea and esophagus. It appears similar to prior exam in 2012. Heart size is normal. There are no coronary artery calcifications. No pericardial effusion. Aorta is normal in caliber. There is a right mastectomy. Cyst is present in segment IVb of the liver, unchanged. There is no biliary ductal dilation. Gallbladder contains a few stones. Pancreas is normal. Spleen is normal. Adrenal glands are normal. The kidneys are normal. There is no hydronephrosis. Urinary bladder is normal. Visualized bowel is normal in caliber without obstruction or inflammation. There appears to have been a hysterectomy. Ovaries are presumed to still be present. There is a small amount of free fluid in the pelvis. No free air. No abdominal or pelvic lymphadenopathy. Aorta is normal in caliber without aneurysm. There are no suspicious osseus lesions. IMPRESSION: 1. Right mastectomy without metastatic disease seen in the chest, abdomen or pelvis. 2. Unchanged large thyroid goiter extending in the upper mediastinum exerting mass effect on the trachea and esophagus. Dictated by: Dictated on workstation # [id number]
--- NOTE | 2020-07-28 13:46 | Diagnostic Imaging Report ---
INDICATION: Breast carcinoma. TECHNIQUE: Patient was administered 27.1 mCi technetium 99m MDP intravenously and whole body imaging was performed after a three-hour delay. COMPARISON: Correlation is made with prior exam from 10/24/2011. FINDINGS: A normal uptake of activity by the axial and appendicular skeleton is noted. There is uptake of activity by the kidneys with excretion into the urinary bladder. Tiny focus of uptake involving anterior lower left rib is noted, similar to prior exam and likely post traumatic. No suspicious foci are seen to suggest osseous metastatic disease. There are some degenerative changes in bilateral knees. IMPRESSION: Stable whole body bone scan. There is no scintigraphic evidence of osseous metastatic disease. Dictated by: Dictated on workstation # [id number]
== END ==
LOC: CARD 08:38
PROVIDERS: ATTEND Internal Medicine Hematology & Oncology
DX: C50.919 Malignant neoplasm of unspecified site of unspecified female breast (principal); E04.9 Nontoxic goiter, unspecified; Z90.11 Acquired absence of right breast and nipple
CPT/HCPCS: 71260; 74178; 78306; A9503

== ENCOUNTER 2020-10-15 08:42 | Outpatient (RCR) | payer MEDICARE ==
[2020-07-24 14:17] LABS: BASOPHILS # (AUTO) 0.1 10^3/uL (0.0-0.1); BASOPHILS % (AUTO) 1 % (0-10); EOSINOPHILS # (AUTO) 0.2 10^3/uL (0.0-0.3); EOSINOPHILS % (AUTO) 2 % (0-10); HEMATOCRIT 47 % (35-52); HEMOGLOBIN 14.1 g/dL (11.5-16.0); LYMPHOCYTES # (AUTO) 2.6 10^3/uL (1.0-4.0); LYMPHOCYTES % (AUTO) 25 % (12-44); MEAN CORPUSCULAR HEMOGLOBIN 26 pg (25-34); MEAN CORPUSCULAR HGB CONC 30 g/dL (32-36); MEAN CORPUSCULAR VOLUME 86 fL (80-99); MEAN PLATELET VOLUME 10.6 fL (9.0-12.2); MONOCYTES # (AUTO) 0.6 10^3/uL (0.0-1.0); MONOCYTES % (AUTO) 5 % (0-12); NEUTROPHILS # (AUTO) 6.8 10^3/uL (1.8-7.8); NEUTROPHILS % (AUTO) 66 % (42-75); PLATELET COUNT 408 10^3/uL (130-400); WHITE BLOOD COUNT 10.2 10^3/uL (4.3-11.0)
[2020-07-24 14:43] LABS: ALBUMIN 4.1 GM/DL (3.2-4.5); BILIRUBIN,TOTAL 0.4 MG/DL (0.1-1.0); CALCIUM 9.1 MG/DL (8.5-10.1); CREATININE SERUM 1.2 MG/DL (0.60-1.30); POTASSIUM 4.7 MMOL/L (3.6-5.0); TOTAL PROTEIN 7.1 GM/DL (6.4-8.2)
[~2020-10-15 08:42] MED LIST changes: +FULVESTRANT 250 MG/5 ML SYR (CANCER CENTER) IM SCH; +NS IV 1000 ML (CANCER CTR) 1,000 ML ONE
[2020-10-15 08:54] LABS: BASOPHILS # (AUTO) 0.1 10^3/uL (0.0-0.1); BASOPHILS % (AUTO) 1 % (0-10); EOSINOPHILS # (AUTO) 0.2 10^3/uL (0.0-0.3); EOSINOPHILS % (AUTO) 2 % (0-10); HEMATOCRIT 49 % (35-52); HEMOGLOBIN 14.5 g/dL (11.5-16.0); LYMPHOCYTES # (AUTO) 1.9 10^3/uL (1.0-4.0); LYMPHOCYTES % (AUTO) 20 % (12-44); MEAN CORPUSCULAR HEMOGLOBIN 25 pg (25-34); MEAN CORPUSCULAR HGB CONC 30 g/dL (32-36); MEAN CORPUSCULAR VOLUME 84 fL (80-99); MEAN PLATELET VOLUME 10.5 fL (9.0-12.2); MONOCYTES # (AUTO) 0.6 10^3/uL (0.0-1.0); MONOCYTES % (AUTO) 6 % (0-12); NEUTROPHILS # (AUTO) 6.8 10^3/uL (1.8-7.8); NEUTROPHILS % (AUTO) 71 % (42-75); PLATELET COUNT 483 10^3/uL (130-400); WHITE BLOOD COUNT 9.6 10^3/uL (4.3-11.0)
[2020-10-15 09:15] LABS: ALBUMIN 4.1 GM/DL (3.2-4.5); BILIRUBIN,TOTAL 0.6 MG/DL (0.1-1.0); CALCIUM 9.8 MG/DL (8.5-10.1); CREATININE SERUM 1.4 MG/DL (0.60-1.30); POTASSIUM 5.4 MMOL/L (3.6-5.0); TOTAL PROTEIN 7.5 GM/DL (6.4-8.2)
[2020-10-15] MEDS ORDERED: FULVESTRANT 250 MG/5 ML SYR (CANCER CENTER) IM SCH (10:45)
== END 2020-10-21 | disposition still patient (30) ==
LOC: ONC 08:42
PROVIDERS: ATTEND Internal Medicine Hematology & Oncology
DX: Z51.11 Encounter for antineoplastic chemotherapy (principal); C50.911 Malignant neoplasm of unspecified site of right female breast; C78.2 Secondary malignant neoplasm of pleura; J91.0 Malignant pleural effusion; I12.9 Hypertensive chronic kidney disease with stage 1 through stage 4 chronic kidney disease, or unspecified chronic kidney disease; N18.30 Chronic kidney disease, stage 3 unspecified; K21.9 Gastro-esophageal reflux disease without esophagitis; M85.80 Other specified disorders of bone density and structure, unspecified site; E55.9 Vitamin D deficiency, unspecified; Z90.11 Acquired absence of right breast and nipple; Z79.899 Other long term (current) drug therapy; Z79.811 Long term (current) use of aromatase inhibitors; Z92.21 Personal history of antineoplastic chemotherapy
CPT/HCPCS: 80053; 85025; 86300; 96360; 96372; 96402; 99213

== ENCOUNTER → 2020-10-15 | Outpatient (CLI) | payer MEDICARE ==
[~2020-10-15] MED LIST changes: -BARIUM SUSPENSION 2.1% (VANILLA SILQ) 450 ML PO ONE; -CATHETER FLUSH 10 ML SYR IV PRN; -HOLD METFORMIN - RECEIVED CONTRAST 20 ML VIAL IV SCH; -IOHEXOL 350 MG/ML 100 ML (OMNIPAQUE 350) VIAL IV ONE; -NS 100 ML (IVPB) BAG IV ONE
== END ==
LOC: LAB 08:43
PROVIDERS: ATTEND Family Medicine
DX: E04.1 Nontoxic single thyroid nodule (principal)
CPT/HCPCS: 36415; 84443

== ENCOUNTER → 2020-12-17 | Outpatient (CLI) | payer MEDICARE ==
[~2020-12-17] MED LIST changes: -FULVESTRANT 250 MG/5 ML SYR (CANCER CENTER) IM SCH; -NS IV 1000 ML (CANCER CTR) 1,000 ML ONE; -SIME40DR9 PO; +[UNRECOGNIZED DRUG - CODE] PO
--- NOTE | 2020-12-17 11:44 | Diagnostic Imaging Report ---
PROCEDURE: US left lower extremity venous. TECHNIQUE: Multiple real-time grayscale images were obtained over the left lower extremity in various projections. Additional duplex Doppler and color Doppler images were also obtained. INDICATION: Left leg swelling. FINDINGS: The left lower extremity venous system shows normal flow with color Doppler sampling. There is normal augmentation of waveforms at the popliteal level with calf compression. IMPRESSION: No evidence of venous thrombosis. Dictated by: Dictated on workstation # [id number]
== END ==
LOC: RAD 10:15
PROVIDERS: ATTEND Family Medicine
DX: R22.42 Localized swelling, mass and lump, left lower limb (principal)

== ENCOUNTER → 2021-01-07 | Outpatient (CLI) | payer MEDICARE | LOC: LABNPT 09:10 | PROVIDERS: ATTEND Family Medicine | DX: Z20.822 Contact with and (suspected) exposure to COVID-19 (principal) | CPT/HCPCS: 87635 ==

== ENCOUNTER 2021-01-14 12:37 | Outpatient (RCR) | payer MEDICARE ==
[2020-11-10 09:05] LABS: BASOPHILS # (AUTO) 0.1 10^3/uL (0.0-0.1); BASOPHILS % (AUTO) 1 % (0-10); EOSINOPHILS # (AUTO) 0.2 10^3/uL (0.0-0.3); EOSINOPHILS % (AUTO) 3 % (0-10); HEMATOCRIT 50 % (35-52); HEMOGLOBIN 14.7 g/dL (11.5-16.0); LYMPHOCYTES % (AUTO) 20 % (12-44); MEAN CORPUSCULAR HEMOGLOBIN 25 pg (25-34); MEAN CORPUSCULAR HGB CONC 29 g/dL (32-36); MEAN CORPUSCULAR VOLUME 85 fL (80-99); MEAN PLATELET VOLUME 10.6 fL (9.0-12.2); MONOCYTES # (AUTO) 0.5 10^3/uL (0.0-1.0); MONOCYTES % (AUTO) 6 % (0-12); NEUTROPHILS # (AUTO) 6.8 10^3/uL (1.8-7.8); NEUTROPHILS % (AUTO) 71 % (42-75); PLATELET COUNT 389 10^3/uL (130-400); WHITE BLOOD COUNT 9.6 10^3/uL (4.3-11.0)
[2020-11-10 09:26] LABS: BILIRUBIN,TOTAL 0.6 MG/DL (0.1-1.0); CALCIUM 9.2 MG/DL (8.5-10.1); CREATININE SERUM 1.37 MG/DL (0.60-1.30); POTASSIUM 4.9 MMOL/L (3.6-5.0)
[2020-12-10 10:07] LABS: ALBUMIN 4.1 GM/DL (3.2-4.5); BILIRUBIN,TOTAL 0.5 MG/DL (0.1-1.0); CALCIUM 9.5 MG/DL (8.5-10.1); CREATININE SERUM 1.19 MG/DL (0.60-1.30); POTASSIUM 4.6 MMOL/L (3.6-5.0)
[2021-01-11 09:13] LABS: BASOPHILS # (AUTO) 0.1 10^3/uL (0.0-0.1); BASOPHILS % (AUTO) 1 % (0-10); EOSINOPHILS # (AUTO) 0.2 10^3/uL (0.0-0.3); EOSINOPHILS % (AUTO) 2 % (0-10); HEMATOCRIT 51 % (35-52); HEMOGLOBIN 14.9 g/dL (11.5-16.0); LYMPHOCYTES # (AUTO) 2.2 10^3/uL (1.0-4.0); LYMPHOCYTES % (AUTO) 21 % (12-44); MEAN CORPUSCULAR HEMOGLOBIN 24 pg (25-34); MEAN CORPUSCULAR HGB CONC 29 g/dL (32-36); MEAN CORPUSCULAR VOLUME 83 fL (80-99); MEAN PLATELET VOLUME 9.9 fL (9.0-12.2); MONOCYTES # (AUTO) 0.4 10^3/uL (0.0-1.0); MONOCYTES % (AUTO) 4 % (0-12); NEUTROPHILS # (AUTO) 7.6 10^3/uL (1.8-7.8); NEUTROPHILS % (AUTO) 72 % (42-75); PLATELET COUNT 432 10^3/uL (130-400); WHITE BLOOD COUNT 10.6 10^3/uL (4.3-11.0)
[2021-01-11 09:29] LABS: ALBUMIN 4.1 GM/DL (3.2-4.5); BILIRUBIN,TOTAL 0.6 MG/DL (0.1-1.0); CREATININE SERUM 1.21 MG/DL (0.60-1.30); POTASSIUM 4.7 MMOL/L (3.6-5.0)
[~2021-01-14 12:37] MED LIST changes: +FULVESTRANT 250 MG/5 ML SYR (CANCER CENTER) IM SCH
== END 2021-02-08 | disposition home or self-care (01) ==
LOC: ONC 12:37
PROVIDERS: ATTEND Internal Medicine Hematology & Oncology
DX: C50.411 Malignant neoplasm of upper-outer quadrant of right female breast (principal); C78.2 Secondary malignant neoplasm of pleura; M85.80 Other specified disorders of bone density and structure, unspecified site; I12.9 Hypertensive chronic kidney disease with stage 1 through stage 4 chronic kidney disease, or unspecified chronic kidney disease; N18.30 Chronic kidney disease, stage 3 unspecified; E55.9 Vitamin D deficiency, unspecified; K21.9 Gastro-esophageal reflux disease without esophagitis; K44.9 Diaphragmatic hernia without obstruction or gangrene; Z90.11 Acquired absence of right breast and nipple; Z79.818 Long term (current) use of other agents affecting estrogen receptors and estrogen levels; Z79.899 Other long term (current) drug therapy; Z92.21 Personal history of antineoplastic chemotherapy; Z79.811 Long term (current) use of aromatase inhibitors
CPT/HCPCS: 80053; 85025; 86300; 96402

== ENCOUNTER → 2021-04-06 | Outpatient (CLI) | payer MEDICARE ==
[~2021-04-06] MED LIST changes: -FULVESTRANT 250 MG/5 ML SYR (CANCER CENTER) IM SCH
--- NOTE | 2021-04-06 10:49 | Diagnostic Imaging Report ---
INDICATION: RIGHT LEG SWELLING TECHNIQUE: Multiple real-time grayscale images were obtained over the right lower extremity in various projections, bilaterally. Additional duplex Doppler and color Doppler images were also obtained. CORRELATION STUDY: None FINDINGS: Color and grayscale sonographic images demonstrate no intraluminal defect within the visualized portion of the common femoral, superficial femoral and/or popliteal veins to suggest thrombus formation. These vessels demonstrate normal response to compression and augmentation. No soft tissue fluid collection. IMPRESSION: 1. Negative for deep venous thrombosis of the right leg. Dictated by: Dictated on workstation # [id number]
== END ==
LOC: RAD 10:30
PROVIDERS: ATTEND Family Medicine
DX: M79.89 Other specified soft tissue disorders (principal)

== ENCOUNTER 2021-05-06 09:09 | Outpatient (RCR) | payer MEDICARE ==
[2021-04-08 13:33] LABS: BASOPHILS # (AUTO) 0.1 10^3/uL (0.0-0.1); BASOPHILS % (AUTO) 1 % (0-10); EOSINOPHILS # (AUTO) 0.3 10^3/uL (0.0-0.3); EOSINOPHILS % (AUTO) 2 % (0-10); HEMATOCRIT 49 % (35-52); HEMOGLOBIN 14.3 g/dL (11.5-16.0); LYMPHOCYTES # (AUTO) 2.8 10^3/uL (1.0-4.0); LYMPHOCYTES % (AUTO) 19 % (12-44); MEAN CORPUSCULAR HEMOGLOBIN 24 pg (25-34); MEAN CORPUSCULAR HGB CONC 29 g/dL (32-36); MEAN CORPUSCULAR VOLUME 80 fL (80-99); MEAN PLATELET VOLUME 10.3 fL (9.0-12.2); MONOCYTES # (AUTO) 0.7 10^3/uL (0.0-1.0); MONOCYTES % (AUTO) 5 % (0-12); NEUTROPHILS % (AUTO) 74 % (42-75); PLATELET COUNT 489 10^3/uL (130-400)
[2021-04-08 14:04] LABS: BILIRUBIN,TOTAL 0.4 MG/DL (0.1-1.0); CALCIUM 9.4 MG/DL (8.5-10.1); CREATININE SERUM 1.31 MG/DL (0.60-1.30); POTASSIUM 4.3 MMOL/L (3.6-5.0)
[~2021-05-06 09:09] MED LIST changes: +FULVESTRANT 250 MG/5 ML SYR (CANCER CENTER) IM SCH
== END 2021-05-12 | disposition home or self-care (01) ==
LOC: ONC 09:09
PROVIDERS: ATTEND Internal Medicine Hematology & Oncology
DX: Z51.11 Encounter for antineoplastic chemotherapy (principal); C50.411 Malignant neoplasm of upper-outer quadrant of right female breast; C78.2 Secondary malignant neoplasm of pleura; M85.80 Other specified disorders of bone density and structure, unspecified site; I12.9 Hypertensive chronic kidney disease with stage 1 through stage 4 chronic kidney disease, or unspecified chronic kidney disease; N18.30 Chronic kidney disease, stage 3 unspecified; E55.9 Vitamin D deficiency, unspecified; Z90.11 Acquired absence of right breast and nipple; Z79.818 Long term (current) use of other agents affecting estrogen receptors and estrogen levels; Z79.811 Long term (current) use of aromatase inhibitors
CPT/HCPCS: 80053; 85025; 86300; 96402

== ENCOUNTER 2021-06-03 08:41 | Outpatient (RCR) | payer MEDICARE | END 2021-06-25 | disposition home or self-care (01) | LOC: ONC 08:41 | PROVIDERS: ATTEND Internal Medicine Hematology & Oncology | DX: Z51.11 Encounter for antineoplastic chemotherapy (principal); C50.411 Malignant neoplasm of upper-outer quadrant of right female breast; C78.2 Secondary malignant neoplasm of pleura; M85.80 Other specified disorders of bone density and structure, unspecified site; I12.9 Hypertensive chronic kidney disease with stage 1 through stage 4 chronic kidney disease, or unspecified chronic kidney disease; N18.30 Chronic kidney disease, stage 3 unspecified; E55.9 Vitamin D deficiency, unspecified; Z90.11 Acquired absence of right breast and nipple; Z79.818 Long term (current) use of other agents affecting estrogen receptors and estrogen levels; Z79.811 Long term (current) use of aromatase inhibitors | CPT/HCPCS: 96402 ==

== ENCOUNTER 2021-07-01 13:46 | Outpatient (RCR) | payer MEDICARE ==
[2021-07-01 13:55] LABS: BASOPHILS # (AUTO) 0.1 10^3/uL (0.0-0.1); BASOPHILS % (AUTO) 1 % (0-10); EOSINOPHILS # (AUTO) 0.3 10^3/uL (0.0-0.3); EOSINOPHILS % (AUTO) 2 % (0-10); HEMATOCRIT 53 % (35-52); LYMPHOCYTES # (AUTO) 3.4 10^3/uL (1.0-4.0); LYMPHOCYTES % (AUTO) 26 % (12-44); MEAN CORPUSCULAR HEMOGLOBIN 22 pg (25-34); MEAN CORPUSCULAR HGB CONC 29 g/dL (32-36); MEAN CORPUSCULAR VOLUME 76 fL (80-99); MEAN PLATELET VOLUME 10.4 fL (9.0-12.2); MONOCYTES # (AUTO) 0.7 10^3/uL (0.0-1.0); MONOCYTES % (AUTO) 5 % (0-12); NEUTROPHILS # (AUTO) 8.6 10^3/uL (1.8-7.8); NEUTROPHILS % (AUTO) 65 % (42-75); PLATELET COUNT 579 10^3/uL (130-400); WHITE BLOOD COUNT 13.1 10^3/uL (4.3-11.0)
[2021-07-01 14:16] LABS: ALBUMIN 4.4 GM/DL (3.2-4.5); BILIRUBIN,TOTAL 0.4 MG/DL (0.1-1.0); CREATININE SERUM 1.23 MG/DL (0.60-1.30); POTASSIUM 4.3 MMOL/L (3.6-5.0); TOTAL PROTEIN 7.7 GM/DL (6.4-8.2)
== END 2021-07-07 13:55 | disposition still patient (30) ==
LOC: ONC 13:46
PROVIDERS: ATTEND Internal Medicine Hematology & Oncology
DX: C50.411 Malignant neoplasm of upper-outer quadrant of right female breast (principal); J91.0 Malignant pleural effusion; M85.80 Other specified disorders of bone density and structure, unspecified site; I12.9 Hypertensive chronic kidney disease with stage 1 through stage 4 chronic kidney disease, or unspecified chronic kidney disease; N18.30 Chronic kidney disease, stage 3 unspecified; E55.9 Vitamin D deficiency, unspecified; E66.9 Obesity, unspecified; Z90.11 Acquired absence of right breast and nipple; Z79.818 Long term (current) use of other agents affecting estrogen receptors and estrogen levels; Z79.811 Long term (current) use of aromatase inhibitors; Z92.21 Personal history of antineoplastic chemotherapy
CPT/HCPCS: 80053; 85025; 86300; 96372; G0463; 99213

== ENCOUNTER 2021-08-05 09:19 | Outpatient (RCR) | payer MEDICARE ==
[2021-08-04 08:53] LABS: BASOPHILS # (AUTO) 0.1 10^3/uL (0.0-0.1); BASOPHILS % (AUTO) 1 % (0-10); EOSINOPHILS # (AUTO) 0.2 10^3/uL (0.0-0.3); EOSINOPHILS % (AUTO) 1 % (0-10); HEMATOCRIT 50 % (35-52); HEMOGLOBIN 14.2 g/dL (11.5-16.0); LYMPHOCYTES # (AUTO) 2.1 10^3/uL (1.0-4.0); LYMPHOCYTES % (AUTO) 16 % (12-44); MEAN CORPUSCULAR HEMOGLOBIN 22 pg (25-34); MEAN CORPUSCULAR HGB CONC 29 g/dL (32-36); MEAN CORPUSCULAR VOLUME 77 fL (80-99); MEAN PLATELET VOLUME 10.1 fL (9.0-12.2); MONOCYTES # (AUTO) 0.7 10^3/uL (0.0-1.0); MONOCYTES % (AUTO) 6 % (0-12); NEUTROPHILS # (AUTO) 9.9 10^3/uL (1.8-7.8); NEUTROPHILS % (AUTO) 76 % (42-75); PLATELET COUNT 576 10^3/uL (130-400)
[2021-08-04 09:15] LABS: ALBUMIN 4.1 GM/DL (3.2-4.5); BILIRUBIN,TOTAL 0.6 MG/DL (0.1-1.0); CALCIUM 9.7 MG/DL (8.5-10.1); CREATININE SERUM 1.14 MG/DL (0.60-1.30); POTASSIUM 4.8 MMOL/L (3.6-5.0); TOTAL PROTEIN 7.4 GM/DL (6.4-8.2)
== END 2021-08-23 | disposition home or self-care (01) ==
LOC: ONC 09:19
PROVIDERS: ATTEND Internal Medicine Hematology & Oncology
DX: Z51.11 Encounter for antineoplastic chemotherapy (principal); Z45.2 Encounter for adjustment and management of vascular access device; C50.411 Malignant neoplasm of upper-outer quadrant of right female breast; C78.2 Secondary malignant neoplasm of pleura; M85.80 Other specified disorders of bone density and structure, unspecified site; I12.9 Hypertensive chronic kidney disease with stage 1 through stage 4 chronic kidney disease, or unspecified chronic kidney disease; N18.30 Chronic kidney disease, stage 3 unspecified; E55.9 Vitamin D deficiency, unspecified; K21.9 Gastro-esophageal reflux disease without esophagitis; Z90.11 Acquired absence of right breast and nipple; Z79.818 Long term (current) use of other agents affecting estrogen receptors and estrogen levels; Z79.811 Long term (current) use of aromatase inhibitors
CPT/HCPCS: 80053; 85025; 86300; 96402; G0463; 36415; 99213

== ENCOUNTER 2021-09-02 10:03 | Outpatient (RCR) | payer MEDICARE ==
[2021-09-02 10:11] LABS: BASOPHILS # (AUTO) 0.1 10^3/uL (0.0-0.1); BASOPHILS % (AUTO) 1 % (0-10); EOSINOPHILS # (AUTO) 0.2 10^3/uL (0.0-0.3); EOSINOPHILS % (AUTO) 2 % (0-10); HEMATOCRIT 52 % (35-52); HEMOGLOBIN 14.8 g/dL (11.5-16.0); LYMPHOCYTES # (AUTO) 2.4 10^3/uL (1.0-4.0); LYMPHOCYTES % (AUTO) 17 % (12-44); MEAN CORPUSCULAR HEMOGLOBIN 22 pg (25-34); MEAN CORPUSCULAR HGB CONC 29 g/dL (32-36); MEAN CORPUSCULAR VOLUME 77 fL (80-99); MEAN PLATELET VOLUME 9.6 fL (9.0-12.2); MONOCYTES # (AUTO) 0.8 10^3/uL (0.0-1.0); MONOCYTES % (AUTO) 5 % (0-12); NEUTROPHILS # (AUTO) 10.9 10^3/uL (1.8-7.8); NEUTROPHILS % (AUTO) 75 % (42-75); PLATELET COUNT 638 10^3/uL (130-400); WHITE BLOOD COUNT 14.5 10^3/uL (4.3-11.0)
[2021-09-02 10:32] LABS: ALBUMIN 4.2 GM/DL (3.2-4.5); BILIRUBIN,TOTAL 0.6 MG/DL (0.1-1.0); CALCIUM 9.4 MG/DL (8.5-10.1); CREATININE SERUM 1.22 MG/DL (0.60-1.30); POTASSIUM 4.8 MMOL/L (3.6-5.0); TOTAL PROTEIN 7.2 GM/DL (6.4-8.2)
[2021-09-02 10:42] LABS: ANISOCYTOSIS SLIGHT; ATYPICAL LYMPHOCYTES 5 %; BAND NEUTROPHILS 9 %; EOSINOPHILS % (MANUAL) 2 %; LYMPHOCYTES % (MANUAL) 12 %; MONOCYTES % (MANUAL) 6 %; NEUTROPHILS % (MANUAL) 66 %; PLATELET CLUMPS NONE SEEN; PLATELET ESTIMATE INCREASED; POLYCHROMASIA SLIGHT
[2021-09-02 10:43] LABS: ELLIPT/OVALOCYTES SLIGHT; MICROCYTOSIS SLIGHT
== END 2021-09-23 | disposition home or self-care (01) ==
LOC: ONC 10:03
PROVIDERS: ATTEND Internal Medicine Hematology & Oncology
DX: C50.411 Malignant neoplasm of upper-outer quadrant of right female breast (principal); C78.2 Secondary malignant neoplasm of pleura; M85.80 Other specified disorders of bone density and structure, unspecified site; I12.9 Hypertensive chronic kidney disease with stage 1 through stage 4 chronic kidney disease, or unspecified chronic kidney disease; N18.30 Chronic kidney disease, stage 3 unspecified; E55.9 Vitamin D deficiency, unspecified; K21.9 Gastro-esophageal reflux disease without esophagitis; Z92.3 Personal history of irradiation; Z90.11 Acquired absence of right breast and nipple; Z79.818 Long term (current) use of other agents affecting estrogen receptors and estrogen levels; Z79.811 Long term (current) use of aromatase inhibitors
CPT/HCPCS: 80053; 85007; 85027; 86300; 96402; G0463; 36415

== ENCOUNTER 2021-10-04 09:28 | Outpatient (RCR) | payer MEDICARE ==
[~2021-10-04 09:28] MED LIST changes: +FULVESTRANT 250 MG/5 ML (FASLODEX) IM SCH; -FULVESTRANT 250 MG/5 ML SYR (CANCER CENTER) IM SCH
[2021-10-04 09:38] LABS: BASOPHILS # (AUTO) 0.1 10^3/uL (0.0-0.1); BASOPHILS % (AUTO) 1 % (0-10); EOSINOPHILS # (AUTO) 0.3 10^3/uL (0.0-0.3); EOSINOPHILS % (AUTO) 2 % (0-10); HEMATOCRIT 51 % (35-52); HEMOGLOBIN 14.5 g/dL (11.5-16.0); LYMPHOCYTES # (AUTO) 2.6 10^3/uL (1.0-4.0); LYMPHOCYTES % (AUTO) 18 % (12-44); MEAN CORPUSCULAR HEMOGLOBIN 21 pg (25-34); MEAN CORPUSCULAR HGB CONC 28 g/dL (32-36); MEAN CORPUSCULAR VOLUME 76 fL (80-99); MEAN PLATELET VOLUME 10.3 fL (9.0-12.2); MONOCYTES # (AUTO) 0.8 10^3/uL (0.0-1.0); MONOCYTES % (AUTO) 6 % (0-12); NEUTROPHILS # (AUTO) 10.7 10^3/uL (1.8-7.8); NEUTROPHILS % (AUTO) 74 % (42-75); PLATELET COUNT 593 10^3/uL (130-400); WHITE BLOOD COUNT 14.5 10^3/uL (4.3-11.0)
[2021-10-04 10:01] LABS: ALBUMIN 4.2 GM/DL (3.2-4.5); BILIRUBIN,TOTAL 0.5 MG/DL (0.1-1.0); CALCIUM 9.4 MG/DL (8.5-10.1); CREATININE SERUM 1.32 MG/DL (0.60-1.30); POTASSIUM 4.5 MMOL/L (3.6-5.0); TOTAL PROTEIN 7.1 GM/DL (6.4-8.2)
[2021-10-04] MEDS ORDERED: FULVESTRANT 250 MG/5 ML (FASLODEX) IM SCH (10:15)
== END 2021-10-23 | disposition home or self-care (01) ==
LOC: ONC 09:28
PROVIDERS: ATTEND Internal Medicine Hematology & Oncology
DX: C50.411 Malignant neoplasm of upper-outer quadrant of right female breast (principal); C78.2 Secondary malignant neoplasm of pleura; M85.80 Other specified disorders of bone density and structure, unspecified site; I12.9 Hypertensive chronic kidney disease with stage 1 through stage 4 chronic kidney disease, or unspecified chronic kidney disease; N18.30 Chronic kidney disease, stage 3 unspecified; E55.9 Vitamin D deficiency, unspecified; K21.9 Gastro-esophageal reflux disease without esophagitis; Z92.3 Personal history of irradiation; Z90.11 Acquired absence of right breast and nipple; Z79.818 Long term (current) use of other agents affecting estrogen receptors and estrogen levels; Z79.811 Long term (current) use of aromatase inhibitors; Z92.21 Personal history of antineoplastic chemotherapy
CPT/HCPCS: 80053; 84443; 85025; G0463; 36415; 99213

== ENCOUNTER 2021-11-03 08:43 | Outpatient (RCR) | payer MEDICARE ==
[2021-10-28 09:23] LABS: BASOPHILS # (AUTO) 0.1 10^3/uL (0.0-0.1); BASOPHILS % (AUTO) 1 % (0-10); EOSINOPHILS # (AUTO) 0.5 10^3/uL (0.0-0.3); EOSINOPHILS % (AUTO) 4 % (0-10); HEMATOCRIT 50 % (35-52); HEMOGLOBIN 14.1 g/dL (11.5-16.0); LYMPHOCYTES # (AUTO) 3.1 10^3/uL (1.0-4.0); LYMPHOCYTES % (AUTO) 20 % (12-44); MEAN CORPUSCULAR HEMOGLOBIN 21 pg (25-34); MEAN CORPUSCULAR HGB CONC 28 g/dL (32-36); MEAN CORPUSCULAR VOLUME 75 fL (80-99); MONOCYTES # (AUTO) 0.8 10^3/uL (0.0-1.0); MONOCYTES % (AUTO) 5 % (0-12); NEUTROPHILS # (AUTO) 10.9 10^3/uL (1.8-7.8); NEUTROPHILS % (AUTO) 70 % (42-75); PLATELET COUNT 544 10^3/uL (130-400); WHITE BLOOD COUNT 15.6 10^3/uL (4.3-11.0)
[2021-10-28 09:30] LABS: POTASSIUM 4.6 MMOL/L (3.6-5.0)
[2021-10-28 09:31] LABS: CALCIUM 9.1 MG/DL (8.5-10.1)
[2021-10-28 09:32] LABS: TOTAL PROTEIN 6.8 GM/DL (6.4-8.2)
[2021-10-28 09:34] LABS: BILIRUBIN,TOTAL 0.5 MG/DL (0.1-1.0)
[2021-10-28 09:36] LABS: CREATININE SERUM 1.12 MG/DL (0.60-1.30)
== END 2021-11-23 | disposition home or self-care (01) ==
LOC: ONC 08:43
PROVIDERS: ATTEND Internal Medicine Hematology & Oncology
DX: C50.411 Malignant neoplasm of upper-outer quadrant of right female breast (principal); C78.2 Secondary malignant neoplasm of pleura; M85.80 Other specified disorders of bone density and structure, unspecified site; I12.9 Hypertensive chronic kidney disease with stage 1 through stage 4 chronic kidney disease, or unspecified chronic kidney disease; N18.30 Chronic kidney disease, stage 3 unspecified; E55.9 Vitamin D deficiency, unspecified; K21.9 Gastro-esophageal reflux disease without esophagitis; Z92.3 Personal history of irradiation; Z90.11 Acquired absence of right breast and nipple; Z79.818 Long term (current) use of other agents affecting estrogen receptors and estrogen levels; Z79.811 Long term (current) use of aromatase inhibitors
CPT/HCPCS: 36415; 80053; 85025; 86300; 96402

== ENCOUNTER 2021-12-15 13:33 | Outpatient (RCR) | payer MEDICARE ==
[2021-12-09 13:51] LABS: BASOPHILS # (AUTO) 0.1 10^3/uL (0.0-0.1); BASOPHILS % (AUTO) 1 % (0-10); EOSINOPHILS # (AUTO) 0.4 10^3/uL (0.0-0.3); EOSINOPHILS % (AUTO) 3 % (0-10); HEMATOCRIT 51 % (35-52); HEMOGLOBIN 14.6 g/dL (11.5-16.0); LYMPHOCYTES % (AUTO) 20 % (12-44); MEAN CORPUSCULAR HEMOGLOBIN 21 pg (25-34); MEAN CORPUSCULAR HGB CONC 29 g/dL (32-36); MEAN CORPUSCULAR VOLUME 73 fL (80-99); MEAN PLATELET VOLUME 10.5 fL (9.0-12.2); MONOCYTES # (AUTO) 0.6 10^3/uL (0.0-1.0); MONOCYTES % (AUTO) 4 % (0-12); NEUTROPHILS # (AUTO) 10.3 10^3/uL (1.8-7.8); NEUTROPHILS % (AUTO) 71 % (42-75); PLATELET COUNT 589 10^3/uL (130-400); WHITE BLOOD COUNT 14.5 10^3/uL (4.3-11.0)
[2021-12-09 14:15] LABS: ALBUMIN 4.2 GM/DL (3.2-4.5); BILIRUBIN,TOTAL 0.6 MG/DL (0.1-1.0); CALCIUM 9.9 MG/DL (8.5-10.1); CREATININE SERUM 1.31 MG/DL (0.60-1.30); POTASSIUM 4.9 MMOL/L (3.6-5.0); TOTAL PROTEIN 7.2 GM/DL (6.4-8.2)
[2021-12-09 14:35] LABS: TSH (THYROID ANALYZER) 0.64 UIU/ML (0.35-4.94)
[~2021-12-15 13:33] MED LIST changes: -FULVESTRANT 250 MG/5 ML (FASLODEX) IM SCH
== END 2021-12-23 | disposition home or self-care (01) ==
LOC: ONC 13:33
PROVIDERS: ATTEND Internal Medicine Hematology & Oncology
DX: C50.411 Malignant neoplasm of upper-outer quadrant of right female breast (principal); C78.2 Secondary malignant neoplasm of pleura; M85.80 Other specified disorders of bone density and structure, unspecified site; I12.9 Hypertensive chronic kidney disease with stage 1 through stage 4 chronic kidney disease, or unspecified chronic kidney disease; N18.30 Chronic kidney disease, stage 3 unspecified; E55.9 Vitamin D deficiency, unspecified; K21.9 Gastro-esophageal reflux disease without esophagitis; Z92.3 Personal history of irradiation; Z90.11 Acquired absence of right breast and nipple; Z79.818 Long term (current) use of other agents affecting estrogen receptors and estrogen levels; Z79.811 Long term (current) use of aromatase inhibitors; Z92.21 Personal history of antineoplastic chemotherapy
CPT/HCPCS: 36415; 80053; 84443; 85025; 86300

== ENCOUNTER → 2022-03-08 | Outpatient (CLI) | payer MEDICARE ==
--- NOTE | 2022-03-08 10:07 | Diagnostic Imaging Report ---
INDICATION: Postmenopausal screening COMPARISON: 12/24/2019 FINDINGS: AP Spine L1-L4: [BMD (g/cm2): 1.131] [T-Score: -0.6] [Z-Score: 1.0] [BMD Previous: 1.098] [BMD % Change: 3.0] LT Hip Neck: [BMD (g/cm2): 0.729] [T-Score: -2.2] [Z-Score: -0.4] LT Hip Total: [BMD (g/cm2):0.816] [T-Score:-1.5] [Z-Score: 0.1] [BMD Previous: 0.803] [BMD % Change: 1.6] RT Hip Neck: [BMD (g/cm2):0.799] [T-Score:-1.7] [Z-Score:0.1] RT Hip Total: [BMD (g/cm2):0.828] [T-score:-1.4] [Z-Score:0.2] [BMD Previous:0.812] [BMD % Change:2.0] *Indicates significant change from prior examination based on 95% confidence level. World Health Organization criteria for BMD interpretation classify patients as Normal (T-score at or above -1.0), Osteopenic (T-score between -1.0 and -2.5) or Osteoporotic (T-score at or below -2.5). LIMITATIONS AND MODIFICATION: None. FRACTURE RISK (FRAX SCORE): The ten year probability of (%): Major Osteoporotic Fracture: [15.5] Hip Fracture: [4.6] IMPRESSION: 1. Osteopenia (Low bone mass). 2. There has been a statistically significant increase in BMD since prior exam, detailed above. 3. See below National Osteoporosis Foundation guidelines on when to potentially initiate pharmacologic therapy. Based on the National Osteoporosis Foundation Guidelines, pharmacologic treatment should be initiated in any of the following, unless clinical conditions suggest otherwise: * Any patient with prior fragility fracture of the hip or vertebrae. A spine fracture indicates 5X risk for subsequent spine fracture and 2X risk for subsequent hip fracture. * Osteoporosis (T-score <-2.5). * Postmenopausal women and men age 50 and older with low bone mass/osteopenia (T-score between -1.0 and -2.5) by DXA and 10-year major osteoporotic fracture greater than 20% or a 10-year probability of hip fracture greater than 3%. These fracture risks are supplied above in the FRAX score, if applicable. * Clinician judgement and/or patient preferences may indicate treatment for people with 10-year fracture probabilities above or below these levels. Dictated by: Dictated on workstation # [id number]
== END ==
LOC: RAD 08:29
PROVIDERS: ATTEND Nurse Practitioner Adult Health
DX: C50.919 Malignant neoplasm of unspecified site of unspecified female breast (principal); M85.80 Other specified disorders of bone density and structure, unspecified site; E55.9 Vitamin D deficiency, unspecified; I74.9 Embolism and thrombosis of unspecified artery; Z79.811 Long term (current) use of aromatase inhibitors; N18.30 Chronic kidney disease, stage 3 unspecified
CPT/HCPCS: 77080

== ENCOUNTER → 2022-03-23 | Outpatient (CLI) | payer MEDICARE ==
--- NOTE | 2022-03-23 10:47 | Diagnostic Imaging Report ---
PROCEDURE: US Non-ob pelvis comp/trans. TECHNIQUE: Multiple Real-time grayscale images were obtained of the pelvis in various projections endovaginally. Transabdominal imaging was also performed. INDICATION: Pelvic mass. COMPARISON: CT abdomen/pelvis performed on 07/28/2020 with no prior ultrasound. FINDINGS: The uterus is absent. The ovaries could not be identified, presumed obscured by bowel gas or surgically absent themselves. No adnexal lesion is identified. No fluid collection. No pathological finding is revealed. IMPRESSION: Absent uterus with nonvisualization of the ovaries. No detectable mass, fluid collection, or acute appearing abnormality. Dictated by: Dictated on workstation # [id number]
== END ==
LOC: RAD 09:34
PROVIDERS: ATTEND Surgery
DX: R19.00 Intra-abdominal and pelvic swelling, mass and lump, unspecified site (principal); Z90.710 Acquired absence of both cervix and uterus
CPT/HCPCS: 76830; 76856

== ENCOUNTER 2022-08-09 16:20 | Inpatient (IN) | payer MEDICARE ==
[~2022-08-09] VITALS: Ht 165.1 cm; Wt 70.9 kg
[2022-08-09] MEDS ORDERED: LACTATED RINGERS 1,000 ML IV ONE ×2 (16:30→17:00)
[2022-08-09] MEDS ORDERED: ONDANSETRON 4 MG/2 ML (SDV) Z0FRAN IVP ONE (16:30)
[2022-08-09] MEDS ORDERED: SCOPOLAMINE 1.5 MG (TRANSDERM-SCOP) PATCH TD ONE (16:30)
[2022-08-09 16:37] LABS: BASOPHILS # (AUTO) 0.1 10^3/uL (0.0-0.1); BASOPHILS % (AUTO) 1 % (0-10); EOSINOPHILS # (AUTO) 0.4 10^3/uL (0.0-0.3); EOSINOPHILS % (AUTO) 2 % (0-10); HEMATOCRIT 51 % (35-52); HEMOGLOBIN 14.2 g/dL (11.5-16.0); LYMPHOCYTES # (AUTO) 4.7 X 10^3 (1.0-4.0); LYMPHOCYTES % (AUTO) 22 % (12-44); MEAN CORPUSCULAR HEMOGLOBIN 19 pg (25-34); MEAN CORPUSCULAR HGB CONC 28 g/dL (32-36); MEAN CORPUSCULAR VOLUME 68 fL (80-99); MONOCYTES # (AUTO) 0.9 X 10^3 (0.0-1.0); MONOCYTES % (AUTO) 4 % (0-12); NEUTROPHILS # (AUTO) 15.4 X 10^3 (1.8-7.8); NEUTROPHILS % (AUTO) 71 % (42-75); PLATELET COUNT 743 10^3/uL (130-400); WHITE BLOOD COUNT 21.6 10^3/uL (4.3-11.0)
[2022-08-09 16:50] LABS: ALBUMIN 4.1 GM/DL (3.2-4.5); CHLORIDE 107 MMOL/L (98-107); POTASSIUM 3.9 MMOL/L (3.6-5.0); SODIUM 140 MMOL/L (135-145)
[2022-08-09 16:52] LABS: AMYLASE 76 U/L (25-125); CALCIUM 9.2 MG/DL (8.5-10.1)
[2022-08-09 16:53] LABS: GLUCOSE 105 MG/DL (70-105); TOTAL PROTEIN 7.1 GM/DL (6.4-8.2)
[2022-08-09 16:54] LABS: CARBON DIOXIDE 24 MMOL/L (21-32)
[2022-08-09 16:55] LABS: BILIRUBIN,TOTAL 0.4 MG/DL (0.1-1.0)
[2022-08-09 16:56] LABS: ALKALINE PHOSPHATASE 115 U/L (40-136)
[2022-08-09 16:57] LABS: GFR ESTIMATED 47
[2022-08-09 16:58] LABS: BUN/CREATININE RATIO 19
[2022-08-09 16:59] LABS: ALANINE AMINOTRANSFERASE 17 U/L (0-55); MAGNESIUM 1.9 MG/DL (1.6-2.4)
[2022-08-09] MEDS ORDERED: CEFEPIME INJECTION 1,000 MG in NS (IVPB) 50 ML IV ONE (17:00)
--- NOTE | 2022-08-09 17:00 | Diagnostic Imaging Report ---
INDICATION: Vertigo Frontal chest obtained at 04:53 p.m. and compared to 10/09/2016. There is cardiomegaly. There is no focal infiltrate or pneumothorax or pleural fluid. There are old right-sided rib fractures. IMPRESSION: No acute process in the chest. Dictated by: Dictated on workstation # [id number]
[2022-08-09 17:01] LABS: CREATINE KINASE 31 U/L (29-168); LIPASE 63 U/L (8-78)
[2022-08-09 17:04] LABS: ERYTHROCYTE SEDIMENTATION RATE 1 MM/HR (0-30)
[2022-08-09 17:07] LABS: CREATINE KINASE MB 0.8 NG/ML (<6.6)
[2022-08-09] MEDS ORDERED: LIDOCAINE UROJET 2% GEL 10 ML PKG TOP ONE (17:15)
[2022-08-09 17:18] LABS: BASOPHILS % (MANUAL) 1 %; EOSINOPHILS % (MANUAL) 7 %; HYPOCHROMASIA SLIGHT; LYMPHOCYTES % (MANUAL) 8 %; MONOCYTES % (MANUAL) 5 %; NEUTROPHILS % (MANUAL) 72 %; POLYCHROMASIA SLIGHT; REACTIVE LYMPHOCYTES 7 %
--- NOTE | 2022-08-09 17:26 | ED General ---
General Chief Complaint: Dizziness/Syncope Stated Complaint: DIZZINESS Nursing Triage Note: PT TO [facility] WITH C/O DIZZINESS AND LIGHT HEADED WHILE AT WORK TODAY. 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 Allergies and Home Medications Allergies Coded Allergies: Sulfa (Sulfonamide Antibiotics) (Unverified Allergy, Mild, 02/04/09) ampicillin (Unverified Allergy, Mild, 02/04/09) Patient Home Medication List Calcium Carbonate/Vitamin D3 (Calcium 600 + Vit D 200 Tablet) 1 Each Tablet, 1 TAB PO DAILY, (Reported) Entered as Reported by: MIRIAM COE on 10/10/16 1059 Cholecalciferol (Vitamin D3) (Vitamin D3) 5,000 Unit Capsule, 5,000 UNIT PO DAILY, (Reported) Entered as Reported by: MIRIAM COE on 10/10/16 1059 Diazepam (Diazepam) 2 Mg Tablet, 2 MG PO HS Prescribed by: PEDRO TRENT on 10/12/16 1303 Fulvestrant (Faslodex) 250 Mg/5 Ml Syringe, 250 MG IM EVERY 4 WEEKS, (Reported) Entered as Reported by: KARINE HOPPER on 10/09/16 0344 Meclizine HCl (Meclizine HCl) 25 Mg Tablet, 25 MG PO TID PRN for DIZZINESS Prescribed by: PEDRO TRENT on 10/12/16 1303 Omeprazole (Prilosec 20 Mg) 20 Mg Capsule.dr, 20 MG PO DAILY, (Reported) Entered as Reported by: VICTORINO CARTER on 03/05/09 1701 Telmisartan (Micardis) 40 Mg Tab, 40 MG PO DAILY, (Reported) Entered as Reported by: VICTORINO CARTER on 03/05/09 1700 Past Aiftwxd-Iqmbiv-Gikfrb Hx Patient Social History Tobacco Use?: No Use of E-Cig and/or Vaping dev: No Substance use?: No Alcohol Use?: No Pt feels they are or have been: No Immunizations Up To Date Tetanus Booster (TDap): Unknown PED Vaccines UTD: No Influenza Vaccine Up-to-Date: Yes; Up-to-Date First/Initial COVID19 Vaccinat: x1 COVID19 Vaccine 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[employer] Seasonal Allergies Seasonal Allergies: No Past Medical History Surgery/Hospitalization HX: htn, gerd Surgeries: Yes (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, R MASTECTOMY 1985, EGD 02/25/09, L [facility] [facility] 02/25/09) Breast, Hysterectomy Respiratory: Yes (PLEURAL EFFUSION) Currently Using CPAP: No Currently Using BIPAP: No Cardiac: No Neurological: No Reproductive Disorders: Yes (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) 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 Sexually Transmitted Disease: No Gastrointestinal: Yes (ACID REFLUX) Diverticulosis Musculoskeletal: Yes Arthritis Endocrine: Yes Hyperthyroidism Cancer: Yes Breast Psychosocial: No Integumentary: No Blood Disorders: No Family Medical History Arthritis 19 MOTHER G8 SISTER Completed stroke 19 FATHER Hypertension DAUGHTER Diabetes Physical Exam Vital Signs Vital Signs - First Documented 08/09/22 08/09/22 16:22 16:30 Temp 35.4 Pulse 79 Resp 16 B/P (MAP) 124/76 (92) Pulse Ox 100 O2 Delivery Nasal Cannula O2 Flow Rate 2.00 FiO2 88 Capillary Refill : Height, Weight, BMI Height: 5'5.00" Weight: 179lbs. 1.0oz. 81.227206pn; 28.8 BMI Method:Stated Focused Exam Sepsis Stage: Sepsis Possible Source: Unknown Lactate Level 08/09/22 17:16: Lactic Acid Level 2.00 Time of Focused Exam: 18:45 Respiratory: Normal Breath Sounds, No Accessory Muscle Use, No Respiratory Distress Cardiovascular: Regular Rate, Rhythm, No Murmur Skin: normal color, warm/dry Lactic Acid Level Laboratory Tests Test 08/09/22 17:16 Lactic Acid Level 2.00 MMOL/L (0.50-2.00) Within 3hrs of presentation: Admin fluids, Admin ABX, Blood cultures prior to ABX's, Focus exam, Lactate level Progress/Results/Core Measures Suspected Sepsis SIRS Temperature: Pulse: 79 Respiratory Rate: 16 Laboratory Tests 08/09/22 16:28: White Blood Count 21.6H Blood Pressure 124 /76 Mean: 92 08/09/22 17:16: Lactic Acid Level 2.00 Laboratory Tests 08/09/22 16:28: Creatinine 1.20, INR Comment 1.0, Platelet Count 743H, Total Bilirubin 0.4 Results/Orders Lab Results Laboratory Tests Test 08/09/22 16:28 08/09/22 17:16 08/09/22 18:55 Range/Units White Blood Count 21.6 H 4.3-11.0 10^3/uL Red Blood Count 7.44 H 3.80-5.11 10^6/uL Hemoglobin 14.2 11.5-16.0 g/dL Hematocrit 51 35-52 % Mean Corpuscular Volume 68 L 80-99 fL Mean Corpuscular Hemoglobin 19 L 25-34 pg Mean Corpuscular Hemoglobin Concent 28 L 32-36 g/dL Red Cell Distribution Width 20.8 H 10.0-14.5 % Platelet Count 743 H 130-400 10^3/uL Mean Platelet Volume 10.0 9.0-12.2 fL Immature Granulocyte % (Auto) 0 % Neutrophils (%) (Auto) 71 42-75 % Lymphocytes (%) (Auto) 22 12-44 % Monocytes (%) (Auto) 4 0-12 % Eosinophils (%) (Auto) 2 0-10 % Basophils (%) (Auto) 1 0-10 % Neutrophils # (Auto) 15.4 H 1.8-7.8 X 10^3 Lymphocytes # (Auto) 4.7 H 1.0-4.0 X 10^3 Monocytes # (Auto) 0.9 0.0-1.0 X 10^3 Eosinophils # (Auto) 0.4 H 0.0-0.3 10^3/uL Basophils # (Auto) 0.1 0.0-0.1 10^3/uL Immature Granulocyte # (Auto) 0.0 0.0-0.1 10^3/uL Neutrophils % (Manual) 72 % Lymphocytes % (Manual) 8 % Monocytes % (Manual) 5 % Eosinophils % (Manual) 7 % Basophils % (Manual) 1 % Reactive Lymphocytes 7 % Smudge Cells SLIGHT Polychromasia SLIGHT Hypochromasia SLIGHT Erythrocyte Sedimentation Rate 1 0-30 MM/HR Prothrombin Time 14.0 12.2-14.7 SEC INR Comment 1.0 0.8-1.4 Activated Partial Thromboplast Time 35 24-35 SEC Sodium Level 140 135-145 MMOL/L Potassium Level 3.9 3.6-5.0 MMOL/L Chloride Level 107 98-107 MMOL/L Carbon Dioxide Level 24 21-32 MMOL/L Anion Gap 9 5-14 MMOL/L Blood Urea Nitrogen 23 H 7-18 MG/DL Creatinine 1.20 0.60-1.30 MG/DL Estimat Glomerular Filtration Rate 47 BUN/Creatinine Ratio 19 Glucose Level 105 70-105 MG/DL Calcium Level 9.2 8.5-10.1 MG/DL Corrected Calcium 9.1 8.5-10.1 MG/DL Magnesium Level 1.9 1.6-2.4 MG/DL Total Bilirubin 0.4 0.1-1.0 MG/DL Aspartate Amino Transf (AST/SGOT) 19 5-34 U/L Alanine Aminotransferase (ALT/SGPT) 17 0-55 U/L Alkaline Phosphatase 115 40-136 U/L Total Creatine Kinase 31 29-168 U/L Creatine Kinase MB 0.8 <6.6 NG/ML Myoglobin 45.6 10.0-92.0 NG/ML Troponin I < 0.028 <0.028 NG/ML C-Reactive Protein High Sensitivity 0.30 0.00-0.50 MG/DL Total Protein 7.1 6.4-8.2 GM/DL Albumin 4.1 3.2-4.5 GM/DL Amylase Level 76 25-125 U/L Lipase 63 8-78 U/L Lactic Acid Level 2.00 0.50-2.00 MMOL/L Influenza Type A (RT-PCR) Not Detected Not Detecte Influenza Type B (RT-PCR) Not Detected Not Detecte SARS-CoV-2 RNA (RT-PCR) Not Detected Not Detecte My Orders Orders - OSVALDO SULLIVAN DO Ed Iv/Invasive Line Start (08/09/22 16:26) Ekg Tracing (08/09/22 16:26) Monitor-Rhythm Ecg Trace Only (08/09/22 16:26) Ct Head Wo-R/O Stroke (08/09/22 16:26) Chest 1 View, Ap/Pa Only (08/09/22 16:26) Amylase (08/09/22 16:26) Cbc With Automated Diff (08/09/22 16:26) Comprehensive Metabolic Panel (08/09/22 16:) Creatine Kinase (08/09/22 16:26) Creatine Kinase Mb (08/09/22 16:26) Hs C Reactive Protein (08/09/22 16:26) Lipase (08/09/22 16:) Magnesium (08/09/22 16:) Protime With Inr (08/09/22 16:) Partial Thromboplastin Time (08/09/22 16:26) Erythrocyte Sedimentation Rate (08/09/22 16:26) Myoglobin Serum (08/09/22 16:26) Troponin I Nayeli (08/09/22 16:26) Ed Iv/Invasive Line Start (08/09/22 16:26) Lactated Ringers (Lr 1000 Ml Iv Solution (08/09/22 16:30) Ondansetron Injection (Zofran Injectio (08/09/22 16:30) Scopolamine Patch (Transderm-Scop Patch) (08/09/22 16:30) Manual Differential (08/09/22 16:28) Covid 19 Inhouse Test (08/09/22 16:59) Blood Culture (08/09/22 16:59) Sputum Culture (08/09/22 16:59) Urinalysis (08/09/22 16:59) Urine Culture (08/09/22 16:59) Ed Iv/Invasive Line Start (08/09/22 16:59) Vital Signs Adult Sepsis Patie Q15M (08/09/22 16:59) O2 (08/09/22 16:59) Remove Rings In Anticipation O (08/09/22 16:59) Lactic Acid Analyzer (08/09/22 16:59) Lactated Ringers (Lr 1000 Ml Iv Solution (08/09/22 17:00) Cefepime Injection (Maxipime Injection) (08/09/22 17:00) Influenza A And B By Pcr (08/09/22 16:59) Isolation Central Supply Req (08/09/22 16:59) Catheter(Urinary) Insert & Ass 03,15 (08/09/22 17:15) Lidocaine 2% (Urojet) (Xylocaine Urojet) (08/09/22 17:15) Medications Given in ED Current Medications Medications Dose Ordered Sig/Brinda Route Start Time Stop Time Status Last Admin Dose Admin Cefepime HCl 1000 mg/Sodium Chloride 50 ml @ 100 mls/hr ONCE ONCE IV 08/09/22 17:00 08/09/22 17:29 DC 08/09/22 18:20 100 MLS/HR Lactated Ringer's 1,000 ml @ 0 mls/hr Q0M ONCE IV 08/09/22 16:30 08/09/22 16:31 DC 08/09/22 16:40 1,000 MLS/HR Lactated Ringer's 1,000 ml @ 0 mls/hr Q0M ONCE IV 08/09/22 17:00 08/09/22 17:01 DC 08/09/22 18:35 1,000 MLS/HR Ondansetron HCl 4 mg ONCE ONCE IVP 08/09/22 16:30 08/09/22 16:31 DC 08/09/22 16:40 4 MG Scopolamine 1.5 mg ONCE ONCE TD 08/09/22 16:30 08/09/22 16:31 DC 08/09/22 16:46 1 MG Vital Signs/I&O 08/09/22 08/09/22 16:22 16:30 Temp 35.4 Pulse 79 Resp 16 B/P (MAP) 124/76 (92) Pulse Ox 100 O2 Delivery Nasal Cannula O2 Flow Rate 2.00 FiO2 88 Capillary Refill : Blood Pressure Mean: 92 Progress Note : Progress Note GIVEN: -IV FLUIDS -ZOFRAN -SCOPOLAMINE DIZZINESS AND NAUSEA IMPROVED SEPSIS PROTOCOL INITIATED ON RECEIVING CBC RESULTS, SHOWING WBC 21.6 NO DETERIORATION IN PT'S CONDITION DURING ER STAY REVIEWED PRIOR RECORDS--HER ONLY OTHER VISIT WAS FOR ADMIT IN 2016 FOR DIVERTI CULITIS. SHE HAS HAD OUTPATIENT LAB DONE THROUGH [facility]. Diagnostic Imaging Comments CXR--PER RADIOLOGIST REPORT AT 1906 There is cardiomegaly. There is no focal infiltrate or pneumothorax or pleural fluid. There are old right-sided rib fractures. IMPRESSION: No acute process in the chest. CT HEAD--PER RADIOLOGIST REPORT AT 190 FINDINGS: There is no midline shift or mass effect. The ventricles and sulci are age-appropriate. No evidence for acute intracranial hemorrhage, abnormal extra-axial fluid collections or cerebral edema is present. No asymmetric hyperdense intracranial vascular sign. The basilar cisterns are unremarkable. The bony calvarium is intact. Likely bilateral lens replacements. Small air-fluid level in the sphenoid sinus. IMPRESSION: Negative appearing noncontrast CT of the head. Reviewed: Reviewed by Me Departure Impression Primary Impression: Sepsis Additional Impression: Vertigo Disposition: ADMITTED INPATIENT Condition: Stable Admissions Decision to Admit Reason: Admit from ER (General) Departure-Patient Inst. Referrals: PIEDAD DORAN DO (PCP/Family) Primary Care Physician OSVALDO SULLIVAN DO Aug 09, 2022 17:26
--- NOTE | 2022-08-09 18:54 | Diagnostic Imaging Report ---
PROCEDURE: CT head wo r/o stroke. TECHNIQUE: Multiple contiguous axial images were obtained through the brain without the use of intravenous contrast. Auto Exposure Controls were utilized during the CT exam to meet ALARA standards for radiation dose reduction. INDICATION: 76-year-old female, dizziness, lightheaded while at work today. History of vertigo. CORRELATION: CT head 10/09/2016 FINDINGS: There is no midline shift or mass effect. The ventricles and sulci are age-appropriate. No evidence for acute intracranial hemorrhage, abnormal extra-axial fluid collections or cerebral edema is present. No asymmetric hyperdense intracranial vascular sign. The basilar cisterns are unremarkable. The bony calvarium is intact. Likely bilateral lens replacements. Small air-fluid level in the sphenoid sinus. IMPRESSION: Negative appearing noncontrast CT of the head. Sphenoid sinusitis. Dictated by: Dictated on workstation # [id number]
[2022-08-09 19:08] LABS: BILIRUBIN,URINE NEGATIVE (NEGATIVE); CLARITY,URINE CLEAR; COLOR,URINE YELLOW; GLUCOSE, URINE (UA) NEGATIVE (NEGATIVE); KETONES,URINE NEGATIVE (NEGATIVE); LEUKOCYTE ESTERASE ,URINE NEGATIVE (NEGATIVE); NITRITE,URINE NEGATIVE (NEGATIVE); PH,URINE 6.5 (5-9); PROTEIN,URINE NEGATIVE (NEGATIVE)
[2022-08-09 19:25] LABS: BACTERIA,URINE NEGATIVE /HPF
[2022-08-09 20:30] VITALS: BP 157/87
[2022-08-09] MEDS ORDERED: diphenhydrAMINE 50 MG/ML INJ (BENADRYL) IVP PRN (20:45)
[2022-08-09] MEDS ORDERED: MILK OF MAGNESIA 400 MG/5 ML 30 ML UDC PO PRN (20:45)
[2022-08-09] MEDS ORDERED: ONDANSETRON 4 MG/2 ML (SDV) Z0FRAN IV PRN (20:45)
[2022-08-09] MEDS ORDERED: polyethylene glycoL POWDER 17 GM (MIRALAX) PACK PO PRN (20:45)
[2022-08-09] MEDS ORDERED: BISACODYL 10 MG SUPP (DULCOLAX) PR PRN (20:45)
[2022-08-09] MEDS ORDERED: VANCOMYCIN INJECTION 0.1 MG in NS (IVPB) 250 ML IV SCH (20:45)
[2022-08-09] MEDS ORDERED: LACTULOSE SYRUP 10GM/15ML (ENULOSE) 30ML UDC PO PRN (20:45)
[2022-08-09] MEDS ORDERED: ANTACID SUSP 30 ML UDC (MYLANTA) PO PRN (20:45)
[2022-08-09] MEDS ORDERED: diphenhydrAMINE 25 MG TAB (BENADRYL) PO PRN (20:45)
[2022-08-09] MEDS ORDERED: ONDANSETRON 4 MG (ZOFRAN) ORAL DISSOLVE TAB PO PRN (20:45)
[2022-08-09] MEDS ORDERED: CALCIUM CARBONATE 500 MG (TUMS) TAB.CHEW PO PRN (20:45)
[2022-08-09] MEDS ORDERED: MELATONIN 3 MG TABLET PO PRN (20:45)
[2022-08-09] MEDS ORDERED: ACETAMINOPHEN 325 MG TABLET PO PRN (20:45)
[2022-08-09] MEDS ORDERED: HYDROmorphone 2 MG/ML VIAL (DILAUDID) IV PRN (20:45)
[2022-08-09] MEDS ORDERED: NS IV 1000 ML 1,000 ML ONE (21:24)
[2022-08-09] MEDS: NS IV 1000 ML 1,000 ML IV SCH (21:30)
[2022-08-09] MEDS: VANCOMYCIN 750 MG/NS 250 ML IVPB IV SCH ×2 (22:55)
[2022-08-09] MEDS: ENOXAPARIN 40 MG/0.4 ML (LOVENOX) SYR SC SCH (22:55)
[2022-08-09] MEDS: SENNOSIDES 8.6 MG (SENOKOT) TAB PO SCH (22:56)
[2022-08-09] MEDS: ALPRAZolam 0.25 MG (XANAX) TAB PO PRN (22:56)
[2022-08-09] MEDS: DOCUSATE SODIUM 100 MG (COLACE) CAP PO SCH (22:56)
[2022-08-09 23:53] VITALS: BP 128/60
[2022-08-10] MEDS: VANCOMYCIN 750 MG/NS 250 ML IVPB IV SCH ×2
[2022-08-10 03:16] VITALS: BP 122/67
[2022-08-10] MEDS: CEFEPIME INJECTION 1,000 MG in NS (IVPB) 50 ML IV SCH ×3 (04:37→19:55)
[2022-08-10 05:44] LABS: BASOPHILS # (AUTO) 0.1 10^3/uL (0.0-0.1); BASOPHILS % (AUTO) 0 % (0-10); EOSINOPHILS # (AUTO) 0.3 10^3/uL (0.0-0.3); EOSINOPHILS % (AUTO) 2 % (0-10); HEMATOCRIT 45 % (35-52); HEMOGLOBIN 12.6 g/dL (11.5-16.0); LYMPHOCYTES # (AUTO) 2.1 10^3/uL (1.0-4.0); LYMPHOCYTES % (AUTO) 12 % (12-44); MEAN CORPUSCULAR HEMOGLOBIN 20 pg (25-34); MEAN CORPUSCULAR HGB CONC 28 g/dL (32-36); MEAN CORPUSCULAR VOLUME 70 fL (80-99); MEAN PLATELET VOLUME 10.3 fL (9.0-12.2); MONOCYTES # (AUTO) 0.8 10^3/uL (0.0-1.0); MONOCYTES % (AUTO) 5 % (0-12); NEUTROPHILS # (AUTO) 14.6 10^3/uL (1.8-7.8); NEUTROPHILS % (AUTO) 81 % (42-75); PLATELET COUNT 566 10^3/uL (130-400)
[2022-08-10 05:55] LABS: ALBUMIN 3.3 GM/DL (3.2-4.5)
[2022-08-10 05:56] LABS: POTASSIUM 4.2 MMOL/L (3.6-5.0)
[2022-08-10 05:57] LABS: CALCIUM 8.4 MG/DL (8.5-10.1)
[2022-08-10 05:58] LABS: TOTAL PROTEIN 5.7 GM/DL (6.4-8.2)
[2022-08-10 06:00] LABS: BILIRUBIN,TOTAL 0.5 MG/DL (0.1-1.0)
[2022-08-10 06:02] LABS: CREATININE SERUM 0.95 MG/DL (0.60-1.30)
--- NOTE | 2022-08-10 07:48 | Diagnostic Imaging Report ---
INDICATION: Sepsis. Frontal chest obtained at 05:20 a.m. and compared to yesterday. FINDINGS: Heart is mildly enlarged. Mediastinal silhouette is unremarkable. There is no new infiltrate or pneumothorax or pleural fluid. IMPRESSION: No acute process in the chest. Dictated by: Dictated on workstation # [id number]
[2022-08-10 08:54] VITALS: BP 130/62
--- NOTE | 2022-08-10 08:59 | Occupational Therapy Eval ---
OT Evaluation-General/PLF Medical Diagnosis Admission Date Aug 09, 2022 at 20:25 Medical Diagnosis: vertigo Onset Date: Aug 09, 2022 Therapy Diagnosis Therapy Diagnosis: dizziness Height/Weight Height (Feet): 5 Height (Inches): 5.00 Weight (Pounds): 179 Weight (Ounces): 1.0 Precautions Precautions/Isolations: Fall Prevention, Standard Precautions Weight Bear Status Weight Bearing Restriction: Weight Bearing/Tolerated Referral Referral Reason: Evaluation/Treatment Medical History Pertinent Medical History: Arthritis, HTN Additional Medical History Patient reports same episode occurred about 5 years ago Current History [facility] WITH C/O DIZZINESS AND LIGHT HEADED WHILE AT WORK . PT HAS PREVIOUS HX OF VERTIGO ADL-Prior Level of Function SCALE: Activities may be completed with or without assistive devices. 7-Hhwndetwsf-dchippg completes the activity by him/herself with no assistance from a helper. 5-Set-up or Clean-up Assistance-helper sets up or cleans up; patient completes activity. [place] assists only prior to or following the activity. 4-Supervision or Touching Assistance-helper provides verbal cues and/or touching/steadying and/or contact guard assistance as patient completes activity. Assistance may be provided throughout the activity or intermittently. 3-Partial/Moderate Assistance-helper does LESS THAN HALF the effort. [place] lifts, holds or supports trunk or limbs, but provides less than half the effort. 2-Substantial/Maximal Assistance-helper does MORE THAN HALF the effort. [place] lifts or holds trunk or limbs and provides more than half the effort. 5-Eyfnwzkpx-zvazea does ALL the effort. Patient does none of the effort to complete the activity. Or, the assistance of 2 or more helpers is required for the patient to complete the activity. If activity was not attempted, code reason: 7-Patient Refused. 9-Not Applicable-not attempted and the patient did not perform the activity before the current illness, exacerbation or injury. 10-Not Attempted due to Environmental Limitations-(lack of equipment, weather restraints, etc.). 88-Not Attempted due to Medical Conditions or Safety Concerns. Self Care: Independent Functional Cognition: Independent Occupation: [employer] Self: Yes OT Current Status Subjective Resting and alert in bed with visitor present Mental Status/Objective Patient Orientation: Person, Place, Time, Situation Attachments: IV Current Upper Extremity ROM WFLS, slight pain from IV with elbow flexion LUE Upper Extremity Coordination WNLs Upper Extremity Sensation no c/o decreased sensation Upper Extremity Strength BUE WNLs ADL-Treatment Eating (QC): 6 Oral Hygiene (QC): 6 Shower/Bathe Self (QC): 7 (declined) Upper Body Dressing (QC): 6 Lower Body Dressing (QC): 6 On/Off Footwear (QC): 6 Toileting Hygiene (QC): 6 Other Treatments Education for correct body position to reduce dizziness with work load, awareness of episode onset, Education OT Patient Education: Correct positioning, Energy conservation, Modified ADL techniques, Progress toward Goal/Update tx plan, Purpose of tx/functional activities, Reviewed precautions, Rehab process, Safety issues, Transfer techniques Teaching Recipient: Patient Teaching Methods: Demonstration, Discussion Response to Teaching: Verbalize Understanding, Return Demonstration OT Live Source Operator Goals Live Source Operator Goals 1=Demonstrate adherence to instructed precautions during ADL tasks. 2=Patient will verbalize/demonstrate understanding of assistive devices/modifications for ADL. 3=Patient will improve strength/tolerance for activity to enable patient to perform ADL's. OT Education/Plan Problem List/Assessment Assessment: Impaired Funct Balance Discharge Recommendations Plan/Recommendations: Discharge/Goals Met Treatment Plan/Plan of Care Treatment,Training & Education: Yes Patient would benefit from OT for education, treatment and training to promote independence in ADL's, mobility, safety and/or upper extremity function for ADL's. Plan of Care: Functional Mobility Comment Eval only, goals met at evaluation Treatment Duration: Aug 10, 2022 Frequency: 1 time per week Estimated Hrs Per Day: .25 hour per day Agreement: Yes Rehab Potential: Good Time Start Time: 08:15 Stop Time: 08:30 DATE: Aug 10, 2022 Total Time Billed (hr/min): 15 Billed Treatment Time 1 visit EVL 1 15 minutes MARY MARINELLI OT Aug 10, 2022 08:59
[2022-08-10] MEDS: NS IV 1000 ML 1,000 ML IV SCH (09:08)
[2022-08-10] MEDS: SENNOSIDES 8.6 MG (SENOKOT) TAB PO SCH ×2 (09:09→19:55)
[2022-08-10] MEDS: DOCUSATE SODIUM 100 MG (COLACE) CAP PO SCH ×2 (09:09→19:55)
--- NOTE | 2022-08-10 09:42 | Physical Therapy Evaluation ---
PT Evaluation-General Medical Diagnosis Admission Date Aug 09, 2022 at 20:25 Medical Diagnosis: vertigo Onset Date: Aug 09, 2022 Therapy Diagnosis Therapy Diagnosis: Gait deficit with vestibular symptoms Height/Weight Height (Feet): 5 Height (Inches): 5.00 Weight (Pounds): 179 Weight (Ounces): 1.0 Precautions Precautions/Isolations: Fall Prevention, Standard Precautions Weight Bear Status Right Lower Extremity: Right Full Weight Bearing Left Lower Extremity: Left Full Weight Bearing Referral Physician: Dr. Archuleta Reason for Referral: Evaluation/Treatment Medical History Pertinent Medical History: Arthritis, HTN Social History Home: Single Level Current Living Status: Spouse Entry Into Home: Stairs Without Railing PT Steps Into Home: 3 Prior Prior Level of Function SCALE: Activities may be completed with or without assistive devices. 0-Zejxmsebxq-rwxiatw completes the activity by him/herself with no assistance from a helper. 5-Set-up or Clean-up Assistance-helper sets up or cleans up; patient completes activity. [place] assists only prior to or following the activity. 4-Supervision or Touching Assistance-helper provides verbal cues and/or touching/steadying and/or contact guard assistance as patient completes activity. Assistance may be provided throughout the activity or intermittently. 3-Partial/Moderate Assistance-helper does LESS THAN HALF the effort. [place] lifts, holds or supports trunk or limbs, but provides less than half the effort. 2-Substantial/Maximal Assistance-helper does MORE THAN HALF the effort. [place] lifts or holds trunk or limbs and provides more than half the effort. 6-Xzucvbnfv-kqhpvj does ALL the effort. Patient does none of the effort to complete the activity. Or, the assistance of 2 or more helpers is required for the patient to complete the activity. If activity was not attempted, code reason: 7-Patient Refused. 9-Not Applicable-not attempted and the patient did not perform the activity before the current illness, exacerbation or injury. 10-Not Attempted due to Environmental Limitations-(lack of equipment, weather restraints, etc.). 88-Not Attempted due to Medical Conditions or Safety Concerns. Bed Mobility: 6 Transfers (B,C,W/C): 6 Gait: 6 Stairs: 6 Indoor Mobility (Ambulation): Independent Stairs: Independent Prior Devices Use: None PT Evaluation-Current Subjective Patient lying supine in bed upon PT arrival, agreeable to treatment. Rates pain at 0/10 and reports currently no dizziness. Objective Patient Orientation: Person, Place, Time, Situation Attachments: IV ROM/Strength ROM Lower Extremities WFLs BLEs all planes. Strength Lower Extremities 4/5 bilaterally all planes. Sensory Vision: Functional Hearing: Functional Sensation Right Lower Extremit: Intact Sensation Left Lower Extremity: Intact Transfers Roll Left to Right (QC): 6 Sit to Lying (QC): 6 Lying to Sitting/Side of Bed(Q: 6 Sit to Stand (QC): 6 Chair/Mlg-qt-Lwnwz Xfer(QC): 6 Toilet Transfer (QC): 6 Gait Does the Patient Walk?: Yes Mode of Locomotion: Walk Anticipated Mode of Locomotion: Walk Walk 10 feet (QC): 6 Walk 50 ft with 2 Turns(QC): 6 Walk 150 ft (QC): 6 Distance: 250 feet Gait Assistive Device: None Stairs #of Steps: 3 1 Step (curb) (QC): 6 Balance Sitting Static: Normal Sitting Dynamic: Normal Standing Static: Normal Standing Dynamic: Normal Assessment/Needs Patient tolerated treatment well. Currently at this time patient reports no symptoms and demonstrates no deficiencies. Patient demonstrates Alva with all bed mobility and transfers. Patient ambulates 250 feet with no AD, with PT pushing the IV only and directing the patients path so that stairs could be performed. Patient ascends/descends 3 steps with Alva. Patient ambulates back to room. Patient in bed post treatment with all needs met, nursing notified, call light in hand and daughter in the room. Rehab Potential: Good PT Plan Treatment/Plan Treatment Plan: Discontinue PT Treatment Duration: Aug 10, 2022 Frequency: Patient and/or Family Agrees t: Yes Safety Risks/Education Patient Education: Gait Training, Transfer Techniques, Steps Teaching Recipient: Patient Teaching Methods: Demonstration, Discussion Response to Teaching: Verbalize Understanding, Return Demonstration Discharge Recommendations Plan No further PT at this time. Time Time In: 903 Time Out: 922 DATE: Aug 10, 2022 Total Billed Treatment Time: 19 Total Billed Treatment Visit, DOE PINA PT Aug 10, 2022 09:42
--- NOTE | 2022-08-10 11:27 | History & Physical ---
REED SALCEDO Sallie 08/10/22 1127: History of Present Illness History of Present Illness Reason for visit/HPI Doris Rodriguez is a pleasant 76 yo F admitted to Med-Surg floor from ED on 08/09/22 for sepsis protocol and vertigo. She arrived to [facility] by EMS yesterday with a chief complaint of dizziness and nausea/vomiting. Pt states that she was at work on her computer when she suddenly became diaphoretic and felt that the room was spinning. She then proceeded to experience multiple episodes of vomiting. She does have a past history of vertigo. She contacted her daughter who then called EMS. Once she received medication at the hospital, she reports her symptoms seemed to alleviate. Significant findings in the ED included WBC of 21.6, Temp of 35.4 (repeat 36.0), and Lactic acid of 2.00. She was subsequently admitted under sepsis protocol and started on Vancomycin and Cefepime. CXR in the ED noted no acute processes and CT of the head was negative. This morning, Mrs. Rodriguez is sitting up in bed alert, oriented, and in no distress. Her and daughter are present. She reports that she is feeling much better than yesterday. Still experiencing some lightheadedness. Denies any pain. She has been toileting fine and ambulating about her room and throughout the hallways with PT. She has a pmh of breast cancer, HTN, and acid reflux for which she take amplodipine, telemisartan, and omeprazole. She follows with Dr. Root for oncology and receives monthly cancer treatments. Last treatment was about two weeks ago. She denies chest pain, shortness of breath, or palpitations. Date of Admission Aug 09, 2022 at 20:25 Date Seen by a Provider: Aug 10, 2022 Time Seen by a Provider: 07:45 I consulted on this patient on 08/10/22 07:45 Attending Physician Jerrod Beauchamp DO Admitting Physician Admitting Physician: Karen Burrows DO Attending Physician: Karen Burrows DO Consult Allergies and Home Medications Allergies Coded Allergies: Sulfa (Sulfonamide Antibiotics) (Unverified Allergy, Mild, 02/04/09) ampicillin (Unverified Allergy, Mild, 02/04/09) Patient Home Medication List Home Medication List Reviewed: Yes Amlodipine Besylate (Amlodipine Besylate) 5 Mg Tablet, 5 MG PO DAILY, (Reported) Entered as Reported by: TOMASZ COX on 08/10/221508 Last Action: Continued Calcium Carbonate (Calcium Carbonate) 300 Mg Calcium (750 Mg) Tab.chew, 300 MG PO DAILY, (Reported) Entered as Reported by: TOMASZ COX on 08/10/221508 Last Action: Converted Cholecalciferol (Vitamin D3) (Vitamin D3) 50 Mcg (2000 Unit) Capsule, 50 MCG PO DAILY, (Reported) Entered as Reported by: TOMASZ COX on 08/10/221508 Last Action: Converted Omeprazole (Omeprazole) 20 Mg Capsule.dr, 20 MG PO DAILY, (Reported) Entered as Reported by: TOMASZ COX on 08/10/221508 Last Action: Continued Telmisartan (Telmisartan) 20 Mg Tablet, 20 MG PO HS, (Reported) Entered as Reported by: TOMASZ COX on 08/10/221508 Last Action: Converted Vitamin B Complex (Vitamin B Complex) 1 Each Tablet, 1 EACH PO DAILY, (Reported) Entered as Reported by: TOMASZ COX on 08/10/221508 Last Action: Converted Discontinued Medications Calcium Carbonate/Vitamin D3 (Calcium 600 + Vit D 200 Tablet) 1 Each Tablet, 1 TAB PO DAILY, (Reported) Discontinued Reason: No Longer Taking Entered as Reported by: MIRIAM COE on 10/10/161058 Last Action: Discontinued Cholecalciferol (Vitamin D3) (Vitamin D3) 5,000 Unit Capsule, 5,000 UNIT PO DAILY, (Reported) Discontinued Reason: No Longer Taking Entered as Reported by: MIRIAM COE on 10/10/16 105 Last Action: Discontinued Diazepam (Diazepam) 2 Mg Tablet, 2 MG PO HS Discontinued Reason: No Longer Taking Prescribed by: PEDRO TRENT on 10/12/16 1303 Last Action: Discontinued Fulvestrant (Faslodex) 250 Mg/5 Ml Syringe, 250 MG IM EVERY 4 WEEKS, (Reported) Discontinued Reason: No Longer Taking Entered as Reported by: KARINE HOPPER on 10/09/16 8884 Last Action: Discontinued Meclizine HCl (Meclizine HCl) 25 Mg Tablet, 25 MG PO TID PRN for DIZZINESS Discontinued Reason: No Longer Taking Prescribed by: PEDRO TRENT on 10/12/16 1303 Last Action: Discontinued Omeprazole (Prilosec 20 Mg) 20 Mg Capsule.dr, 20 MG PO DAILY, (Reported) Discontinued Reason: No Longer Taking Entered as Reported by: VICTORINO CARTER on 03/05/09 170 Last Action: Discontinued Telmisartan (Micardis) 40 Mg Tab, 40 MG PO DAILY, (Reported) Discontinued Reason: No Longer Taking Entered as Reported by: VICTORINO CARTER on 03/05/09 170 Last Action: Discontinued Past Idkubiq-Abdmqj-Hvaiwl Hx Patient Social History Tobacco Use?: No Smoking Status: Never a Smoker Smokeless Tobacco Frequency: Never a User Use of E-Cig and/or Vaping dev: No Substance use?: No Alcohol Use?: No Pt feels they are or have been: Yes Immunizations Up To Date First/Initial COVID19 Vaccinat: x1 Tetanus Booster (TDap): Unknown Hepatitis A: No Hepatitis B: No PED Vaccines UTD: No Seasonal Allergies Seasonal Allergies: No Current Status status: No status: No Advance Directives: No Communicates: Verbally Primary Language: Kyrgyz Preferred Spoken Language: Kyrgyz Is interpretation needed?: No Sensory deficits: Vision impairment Implanted or Applied Medical D: None Past Medical History Surgeries: Breast (Mastectomy), Hysterectomy Currently Using CPAP: No Currently Using BIPAP: No 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 Sexually Transmitted Disease: No Gastroesophageal Reflux, Diverticulosis Arthritis Hyperthyroidism Breast Blood Disorders: No Family Medical History Arthritis 19 MOTHER G8 SISTER Completed stroke 19 FATHER Hypertension DAUGHTER Diabetes Review of Systems Constitutional: No diaphoresis, No fever, No weakness EENTM: No blurred vision, No vision loss Respiratory: No cough, No dyspnea on exertion, No short of breath Cardiovascular: No chest pain, No palpitations, No syncope; other (lightheadedness) Gastrointestinal: No abdominal pain, No constipation, No diarrhea; nausea (resolved), vomiting (resolved) Genitourinary: No dysuria, No incontinence Psychiatric/Neurological: Denies Headache, Denies Weakness Physical Exam Vital Signs Vital Signs - First Documented 08/09/22 08/09/22 16:22 16:30 Temp 35.4 Pulse 79 Resp 16 B/P (MAP) 124/76 (92) Pulse Ox 100 O2 Delivery Nasal Cannula O2 Flow Rate 2.00 FiO2 88 Capillary Refill : Height, Weight, BMI Height: 5'5.00" Weight: 179lbs. 1.0oz. 81.208647cw; 26.01 BMI Method:Stated General Appearance: No Apparent Distress, WD/WN Eyes: Bilateral Eye PERRL, Bilateral Eye EOMI HEENT: PERRL/EOMI, Moist Mucous Membranes Neck: Full Range of Motion, Non Tender, Supple Respiratory: Chest Non Tender, Lungs Clear, Normal Breath Sounds, No Accessory Muscle Use, No Respiratory Distress Cardiovascular: Regular Rate, Rhythm, No Murmur, Normal Peripheral Pulses Gastrointestinal: Normal Bowel Sounds, Non Tender, Soft Rectal: Deferred Back: Normal Inspection, No CVA Tenderness, No Vertebral Tenderness Extremity: Non Tender, No Calf Tenderness, No Pedal Edema Neurologic/Psychiatric: Alert, Oriented x3, No Motor/Sensory Deficits, Normal Mood/Affect Skin: Normal Color, Warm/Dry Assessment/Plan Assessment and Plan Sepsis -Continue Vancomycin and Cefepime -WBC count is 18.0 down from 21.6 on arrival -Temp is 36.4 up from 35.4 on arrival -Remove quality assurance monitor final Vertigo -Monitor for reoccurrence -Encouraging ambulation Nausea/Vomiting -Resolved HTN -Continue home meds Acid Reflux -Continue home meds hx of Breast cancer -Last monthly tx was about 2 weeks ago Admission Diagnosis Admission Status: Inpatient Order (span 2 midnights) Reason for Inpatient Admission: Sepsis protocol, Vertigo KAREN BURROWS DO 08/11/22 0500: Allergies and Home Medications Allergies Coded Allergies: Sulfa (Sulfonamide Antibiotics) (Unverified Allergy, Mild, 02/04/09) ampicillin (Unverified Allergy, Mild, 02/04/09) Patient Home Medication List Amlodipine Besylate (Amlodipine Besylate) 5 Mg Tablet, 5 MG PO DAILY, (Reported) Entered as Reported by: TOMASZ COX on 08/10/221508 Last Action: Continued Calcium Carbonate (Calcium Carbonate) 300 Mg Calcium (750 Mg) Tab.chew, 300 MG PO DAILY, (Reported) Entered as Reported by: TOMASZ COX on 08/10/221508 Last Action: Converted Cholecalciferol (Vitamin D3) (Vitamin D3) 50 Mcg (2000 Unit) Capsule, 50 MCG PO DAILY, (Reported) Entered as Reported by: TOMASZ COX on 08/10/221508 Last Action: Converted Omeprazole (Omeprazole) 20 Mg Capsule.dr, 20 MG PO DAILY, (Reported) Entered as Reported by: TOMASZ COX on 08/10/221508 Last Action: Continued Telmisartan (Telmisartan) 20 Mg Tablet, 20 MG PO HS, (Reported) Entered as Reported by: TOMASZ COX on 08/10/221508 Last Action: Converted Vitamin B Complex (Vitamin B Complex) 1 Each Tablet, 1 EACH PO DAILY, (Reported) Entered as Reported by: TOMASZ COX on 08/10/221508 Last Action: Converted Discontinued Medications Calcium Carbonate/Vitamin D3 (Calcium 600 + Vit D 200 Tablet) 1 Each Tablet, 1 TAB PO DAILY, (Reported) Discontinued Reason: No Longer Taking Entered as Reported by: MIRIAM COE on 10/10/161058 Last Action: Discontinued Cholecalciferol (Vitamin D3) (Vitamin D3) 5,000 Unit Capsule, 5,000 UNIT PO DAILY, (Reported) Discontinued Reason: No Longer Taking Entered as Reported by: MIRIAM COE on 10/10/16 105 Last Action: Discontinued Diazepam (Diazepam) 2 Mg Tablet, 2 MG PO HS Discontinued Reason: No Longer Taking Prescribed by: PEDRO TRETN on 10/12/16 1303 Last Action: Discontinued Fulvestrant (Faslodex) 250 Mg/5 Ml Syringe, 250 MG IM EVERY 4 WEEKS, (Reported) Discontinued Reason: No Longer Taking Entered as Reported by: KARINE HOPPER on 10/09/16 0344 Last Action: Discontinued Meclizine HCl (Meclizine HCl) 25 Mg Tablet, 25 MG PO TID PRN for DIZZINESS Discontinued Reason: No Longer Taking Prescribed by: PERDO TRENT on 10/12/16 1303 Last Action: Discontinued Omeprazole (Prilosec 20 Mg) 20 Mg Capsule.dr, 20 MG PO DAILY, (Reported) Discontinued Reason: No Longer Taking Entered as Reported by: VICTORINO CARTER on 03/05/09 170 Last Action: Discontinued Telmisartan (Micardis) 40 Mg Tab, 40 MG PO DAILY, (Reported) Discontinued Reason: No Longer Taking Entered as Reported by: VICTORINO CARTER on 03/05/09 170 Last Action: Discontinued Past Kuvbbcn-Bbshhc-Duedin Hx Family Medical History Arthritis 19 MOTHER G8 SISTER Completed stroke 19 FATHER Hypertension DAUGHTER Assessment/Plan Assessment and Plan Problems: (1) Sepsis Status: Acute (2) Vertigo Status: Acute Admission Diagnosis Admission Status: Inpatient Order (span 2 midnights) Reason for Inpatient Admission: fuo in immunosupressed Supervisory-Addendum Brief Verification & Attestation Participated in pt care: history, MDM, physical Personally performed: exam, history, MDM, supervision of care Care discussed with: Medical Student Procedures: n/a Results interpretation: Verified all documentation Verification and Attestation of Medical Student E/M Service A medical student performed and documented this service in my presence. I reviewed and verified all information documented by the medical student and made modifications to such information, when appropriate. I personally performed the physical exam and medical decision making. Karen Burrows, Aug 11, 2022,04:58 REED SALCEDO Aug 10, 2022 11:27 KAREN BURROWS DO Aug 11, 2022 05:00
[2022-08-10 12:42] VITALS: BP 125/61
[2022-08-10] MEDS ORDERED: TELM20TA6 PO (15:09)
[2022-08-10] MEDS ORDERED: AMLO-250 PO (15:09)
[2022-08-10] MEDS ORDERED: CHOL20002 PO (15:09)
[2022-08-10] MEDS ORDERED: CALC-938 PO (15:09)
[2022-08-10] MEDS ORDERED: OMEP20CA18 PO (15:09)
[2022-08-10] MEDS ORDERED: VITA1TAB17 PO (15:09)
[2022-08-10 15:39] VITALS: BP 150/67
[2022-08-10] MEDS: ENOXAPARIN 40 MG/0.4 ML (LOVENOX) SYR SC SCH (19:55)
[2022-08-10 20:19] VITALS: BP 159/75
[2022-08-10] MEDS ORDERED: LOSARTAN 25 MG (COZAAR) TAB PO SCH (22:00)
[2022-08-10] MEDS: ALPRAZolam 0.25 MG (XANAX) TAB PO PRN (22:45)
[2022-08-10] MEDS ORDERED: VANCOMYCIN 1 GM/NS 250 ML IVPB IV SCH ×2 (23:00)
[2022-08-11] VITALS: BP 126/76
[2022-08-11 04:00] VITALS: BP 128/70
[2022-08-11] MEDS: CEFEPIME INJECTION 1,000 MG in NS (IVPB) 50 ML IV SCH (04:26)
[2022-08-11 05:28] LABS: BASOPHILS # (AUTO) 0.1 10^3/uL (0.0-0.1); BASOPHILS % (AUTO) 1 % (0-10); EOSINOPHILS # (AUTO) 0.5 10^3/uL (0.0-0.3); EOSINOPHILS % (AUTO) 3 % (0-10); HEMATOCRIT 47 % (35-52); LYMPHOCYTES # (AUTO) 2.5 10^3/uL (1.0-4.0); LYMPHOCYTES % (AUTO) 15 % (12-44); MEAN CORPUSCULAR HEMOGLOBIN 19 pg (25-34); MEAN CORPUSCULAR HGB CONC 28 g/dL (32-36); MEAN CORPUSCULAR VOLUME 69 fL (80-99); MEAN PLATELET VOLUME 9.7 fL (9.0-12.2); MONOCYTES # (AUTO) 0.8 10^3/uL (0.0-1.0); MONOCYTES % (AUTO) 5 % (0-12); NEUTROPHILS % (AUTO) 77 % (42-75); PLATELET COUNT 528 10^3/uL (130-400)
[2022-08-11 05:35] LABS: ALBUMIN 3.5 GM/DL (3.2-4.5); POTASSIUM 4.6 MMOL/L (3.6-5.0)
[2022-08-11 05:36] LABS: CALCIUM 8.9 MG/DL (8.5-10.1)
[2022-08-11 05:38] LABS: TOTAL PROTEIN 6.1 GM/DL (6.4-8.2)
[2022-08-11 05:39] LABS: BILIRUBIN,TOTAL 0.5 MG/DL (0.1-1.0)
[2022-08-11 05:41] LABS: CREATININE SERUM 1.02 MG/DL (0.60-1.30)
[2022-08-11] MEDS: PANTOPRAZOLE 20 MG TABLET (PROTONIX) PO SCH ×2 (05:53→08:18)
[2022-08-11] MEDS ORDERED: IRON DEXTRAN INJECTION 25 MG in NS (IVPB) 5.75 ML, SYRINGE-IVPB 1 SYRINGE IV ONE ×3 (07:00)
[2022-08-11] MEDS ORDERED: CYANOCOBALAMIN INJ 1000 MCG/ML IM ONE (07:00)
[2022-08-11] MEDS ORDERED: IRON DEXTRAN INJECTION 1,000 MG in NS (IVPB) 250 ML IV ONE (07:15)
[2022-08-11 07:55] VITALS: BP 157/82
[2022-08-11] MEDS: SENNOSIDES 8.6 MG (SENOKOT) TAB PO SCH (08:13)
[2022-08-11] MEDS: DOCUSATE SODIUM 100 MG (COLACE) CAP PO SCH (08:13)
[2022-08-11] MEDS ORDERED: MULTIVIT W/MINERALS TAB (THERAGRAN M) PO SCH (08:59)
[2022-08-11] MEDS ORDERED: VITAMIN D3 25 MCG (1,000 UNITS) TABLET PO SCH (09:00)
[2022-08-11] MEDS ORDERED: CALCIUM CARBONATE 600 MG (CALCARB) TAB PO SCH (09:00)
[2022-08-11] MEDS ORDERED: amLODIPine 5 MG (NORVASC) TAB PO SCH (09:00)
[2022-08-11] MEDS ORDERED: CEFD300C3 PO (11:33)
--- NOTE | 2022-08-11 11:35 | Discharge Summary ---
Diagnosis/Chief Complaint Date of Admission Aug 09, 2022 at 20:25 Date of Discharge Discharge Date: Aug 11, 2022 Discharge Diagnosis Sepsis -Continue Vancomycin and Cefepime -WBC count is 18.0 down from 21.6 on arrival -Temp is 36.4 up from 35.4 on arrival -Remove cardiac nurse practitioner Vertigo -Monitor for reoccurrence -Encouraging ambulation Nausea/Vomiting -Resolved HTN -Continue home meds Acid Reflux -Continue home meds hx of Breast cancer -Last monthly tx was about 2 weeks ago Discharge Summary Discharge Physical Examination Allergies: Coded Allergies: Sulfa (Sulfonamide Antibiotics) (Unverified Allergy, Mild, 02/04/09) ampicillin (Unverified Allergy, Mild, 02/04/09) Vitals & I&Os Vital Signs Date Time Temp Pulse Resp B/P (MAP) Pulse Ox O2 Delivery O2 Flow Rate FiO2 08/11/22 11:37 36.3 79 18 120/75 (90) 93 Room Air 08/11/22 08:00 88 08/09/22 20:30 2.00 General Appearance: Alert, Oriented X3, Cooperative Respiratory: Clear to Auscultation Cardiovascular: Regular Rate Neuro: Normal Gait, Normal Speech, Strength at 5/5 X4 Ext Psych/Mental Status: Mental Status NL Hospital Course Was the Problem List Reviewed?: Yes Doris Rodriguez is a pleasant 76 yo F admitted to Med-Surg floor from ED on 08/09/22 for sepsis protocol and vertigo. She arrived to [facility] by EMS with a chief complaint of dizziness and nausea/vomiting. Pt states that she was at work on her computer when she suddenly became diaphoretic and felt that the room was spinning. She then proceeded to experience multiple episodes of vomiting. She does have a past history of vertigo. She contacted her daughter who then called EMS. Once she received medication at the hospital, she reports her symptoms seemed to alleviate. Significant findings in the ED included WBC of 21.6, Temp of 35.4 (repeat 36.0), and Lactic acid of 2.00. She was subsequently admitted under sepsis protocol and started on Vancomycin and Cefepime. CXR in the ED noted no acute processes and CT of the head was negative. Her and daughter have been present. She was experiencing some lightheadedness during her stay but denied any pain throughout the time. She has been toileting fine and ambulating about her room and throughout the hallways with PT. She was found to have decreased iron levels and received iron infusion this morning as well as a B12 injection. Straight cath urine culture and preliminary blood cultures taken 08/09/22 showed no growth. She has a pmh of breast cancer, HTN, and acid reflux for which she take amplodipine, telemisartan, and omeprazole. She follows with Dr. Root for oncology and receives monthly cancer treatments. Last treatment was about two weeks ago. This morning November reports that she has not had any ligh theadedness or dizziness since yesterday. Her only complaint is pain in her left hand due to chronic neuropathy. She denies chest pain, shortness of breath, nausea, vomiting, diarrhea, constipation or palpitations. Her newest CXR is unchanged. PCP is Dr. Jerrod Beauchamp. Objective: Heart: Regular rate and rhythm, Normal S1/S2, no murmur Lungs: Clear to auscultation bilaterally, normal air movement Abdomen: soft, nontender, normoactive bowels sounds Neck: supple, no cervical lymphadenopathy Extremities: no edema Pulses: 2+ radial Psych: alert, oriented, cooperative with exam Assessment and Plan: Sepsis -Continue Vancomycin and Cefepime -WBC count is 17.0 down from 18.0 yesterday Vertigo -Monitor for reoccurrence -Encouraging ambulation Iron Deficiency -Iron infusion -B12 injection Nausea/Vomiting -Resolved HTN -Continue home meds Acid Reflux -Continue home meds hx of Breast cancer -Last monthly tx was about 2 weeks ago Discharge patient with PO Omnicef once she has completed IV cefepime, vancomycin, and iron infusion Labs (last 24 hrs) Laboratory Tests 08/09/22 16:28: White Blood Count 21.6H, Red Blood Count 7.44H, Hemoglobin 14.2, Hematocrit 51, Mean Corpuscular Volume 68L, Mean Corpuscular Hemoglobin 19L, Mean Corpuscular Hemoglobin Concent 28L, Red Cell Distribution Width 20.8H, Platelet Count 743H, Mean Platelet Volume 10.0, Immature Granulocyte % (Auto) 0, Neutrophils (%) (Auto) 71, Lymphocytes (%) (Auto) 22, Monocytes (%) (Auto) 4, Eosinophils (%) (Auto) 2, Basophils (%) (Auto) 1, Neutrophils # (Auto) 15.4H, Lymphocytes # (Auto) 4.7H, Monocytes # (Auto) 0.9, Eosinophils # (Auto) 0.4H, Basophils # (Auto) 0.1, Immature Granulocyte # (Auto) 0.0, Neutrophils % (Manual) 72, Lymphocytes % (Manual) 8, Monocytes % (Manual) 5, Eosinophils % (Manual) 7, Basophils % (Manual) 1, Reactive Lymphocytes 7, Smudge Cells SLIGHT, Polychromasia SLIGHT, Hypochromasia SLIGHT, Erythrocyte Sedimentation Rate 1, Prothrombin Time 14.0, INR Comment 1.0, Activated Partial Thromboplast Time 35, Sodium Level 140, Potassium Level 3.9, Chloride Level 107, Carbon Dioxide Level 24, Anion Gap 9, Blood Urea Nitrogen 23H, Creatinine 1.20, Estimat Glomerular Filtration Rate 47, BUN/Creatinine Ratio 19, Glucose Level 105, Calcium Level 9.2, Corrected Calcium 9.1, Magnesium Level 1.9, Total Bilirubin 0.4, Aspartate Amino Transf (AST/SGOT) 19, Alanine Aminotransferase (ALT/SGPT) 17, Alkaline Phosphatase 115, Total Creatine Kinase 31, Creatine Kinase MB 0.8, Myoglobin 45.6, Troponin I < 0.028, C-Reactive Protein High Sensitivity 0.30, Total Protein 7.1, Albumin 4.1, Amylase Level 76, Lipase 63 08/09/22 17:16: Lactic Acid Level 2.00, Influenza Type A (RT-PCR) Not Detected, Influenza Type B (RT-PCR) Not Detected, SARS-CoV-2 RNA (RT-PCR) Not Detected 08/09/22 18:55: Urine Color YELLOW, Urine Clarity CLEAR, Urine pH 6.5, Urine Specific [place] <=1.005, Urine Protein NEGATIVE, Urine Glucose (UA) NEGATIVE, Urine Ketones NEGATIVE, Urine Nitrite NEGATIVE, Urine Bilirubin NEGATIVE, Urine Urobilinogen 0.2, Urine Leukocyte Esterase NEGATIVE, Urine RBC (Auto) NEGATIVE, Urine RBC NONE, Urine WBC NONE, Urine Squamous Epithelial Cells NONE, Urine Crystals NONE, Urine Bacteria NEGATIVE, Urine Casts PRESENT, Urine Hyaline Casts 2-5H, Urine Mucus NEGATIVE, Urine Culture Indicated CULTURE PENDING 08/10/22 05:16: White Blood Count 18.0H, Red Blood Count 6.47H, Hemoglobin 12.6, Hematocrit 45, Mean Corpuscular Volume 70L, Mean Corpuscular Hemoglobin 20L, Mean Corpuscular Hemoglobin Concent 28L, Red Cell Distribution Width 20.0H, Platelet Count 566H, Mean Platelet Volume 10.3, Immature Granulocyte % (Auto) 0, Neutrophils (%) (Auto) 81H, Lymphocytes (%) (Auto) 12, Monocytes (%) (Auto) 5, Eosinophils (%) (Auto) 2, Basophils (%) (Auto) 0, Neutrophils # (Auto) 14.6H, Lymphocytes # (Auto) 2.1, Monocytes # (Auto) 0.8, Eosinophils # (Auto) 0.3, Basophils # (Auto) 0.1, Immature Granulocyte # (Auto) 0.1, Sodium Level 141, Potassium Level 4.2, Chloride Level 111H, Carbon Dioxide Level 19L, Anion Gap 11, Blood Urea Nitrogen 17, Creatinine 0.95, Estimat Glomerular Filtration Rate 62, BUN/Creatinine Ratio 18, Glucose Level 87, Calcium Level 8.4L, Corrected Calcium 9.0, Total Bilirubin 0.5, Aspartate Amino Transf (AST/SGOT) 19, Alanine Aminotransferase (ALT/SGPT) 15, Alkaline Phosphatase 100, Total Protein 5.7L, Albumin 3.3, Iron Level 18L, Vitamin B12 Level 579 08/11/22 05:17: White Blood Count 17.0H, Red Blood Count 6.81H, Hemoglobin 13.0, Hematocrit 47, Mean Corpuscular Volume 69L, Mean Corpuscular Hemoglobin 19L, Mean Corpuscular Hemoglobin Concent 28L, Red Cell Distribution Width 20.2H, Platelet Count 528H, Mean Platelet Volume 9.7, Immature Granulocyte % (Auto) 0, Neutrophils (%) (Auto) 77H, Lymphocytes (%) (Auto) 15, Monocytes (%) (Auto) 5, Eosinophils (%) (Auto) 3, Basophils (%) (Auto) 1, Neutrophils # (Auto) 13.0H, Lymphocytes # (Auto) 2.5, Monocytes # (Auto) 0.8, Eosinophils # (Auto) 0.5H, Basophils # (Auto) 0.1, Immature Granulocyte # (Auto) 0.1, Sodium Level 141, Potassium Level 4.6, Chloride Level 109H, Carbon Dioxide Level 20L, Anion Gap 12, Blood Urea Nitrogen 18, Creatinine 1.02, Estimat Glomerular Filtration Rate 57, BUN/Creatinine Ratio 18, Glucose Level 91, Calcium Level 8.9, Corrected Calcium 9.3, Total Bilirubin 0.5, Aspartate Amino Transf (AST/SGOT) 18, Alanine Aminotransferase (ALT/SGPT) 17, Alkaline Phosphatase 102, Total Protein 6.1L, Albumin 3.5, Vancomycin Level Trough 21.1H Microbiology 08/09/22 Urine Culture - Final, Complete NO GROWTH 08/09/22 Blood Culture - Preliminary, Resulted No growth Pending Labs Microbiology Date/Time Source Procedure Growth Status 08/09/22 18:55 Urine Straight Cath, In/Out Urine Culture - Final NO GROWTH Complete 08/09/22 18:00 Peripheral Lt Ac Blood Culture - Preliminary No growth Resulted 08/09/22 17:16 Peripheral Rt Forearm Blood Culture - Preliminary No growth Resulted Laboratory Tests 08/09/22 16:28: White Blood Count 21.6, Red Blood Count 7.44, Hemoglobin 14.2, Hematocrit 51, Mean Corpuscular Volume 68, Mean Corpuscular Hemoglobin 19, Mean Corpuscular Hemoglobin Concent 28, Red Cell Distribution Width 20.8, Platelet Count 743, Mean Platelet Volume 10.0, Immature Granulocyte % (Auto) 0, Neutrophils (%) (Auto) 71, Lymphocytes (%) (Auto) 22, Monocytes (%) (Auto) 4, Eosinophils (%) (Auto) 2, Basophils (%) (Auto) 1, Neutrophils # (Auto) 15.4, Lymphocytes # (Auto) 4.7, Monocytes # (Auto) 0.9, Eosinophils # (Auto) 0.4, Basophils # (Auto) 0.1, Immature Granulocyte # (Auto) 0.0, Neutrophils % (Manual) 72, Lymphocytes % (Manual) 8, Monocytes % (Manual) 5, Eosinophils % (Manual) 7, Basophils % (Manual) 1, Reactive Lymphocytes 7, Smudge Cells SLIGHT, Polychromasia SLIGHT, Hypochromasia SLIGHT, Erythrocyte Sedimentation Rate 1, Prothrombin Time 14.0, INR Comment 1.0, Activated Partial Thromboplast Time 35, Sodium Level 140, Potassium Level 3.9, Chloride Level 107, Carbon Dioxide Level 24, Anion Gap 9, Blood Urea Nitrogen 23, Creatinine 1.20, Estimat Glomerular Filtration Rate 47, BUN/Creatinine Ratio 19, Glucose Level 105, Calcium Level 9.2, Corrected Calcium 9.1, Magnesium Level 1.9, Total Bilirubin 0.4, Aspartate Amino Transf (AST/SGOT) 19, Alanine Aminotransferase (ALT/SGPT) 17, Alkaline Phosphatase 115, Total Creatine Kinase 31, Creatine Kinase MB 0.8, Myoglobin 45.6, Troponin I < 0.028, C-Reactive Protein High Sensitivity 0.30, Total Protein 7.1, Albumin 4.1, Gisela lase Level 76, Lipase 63 08/09/22 17:16: Lactic Acid Level 2.00, Influenza Type A (RT-PCR) Not Detected, Influenza Type B (RT-PCR) Not Detected, SARS-CoV-2 RNA (RT-PCR) Not Detected 08/09/22 18:55: Urine Color YELLOW, Urine Clarity CLEAR, Urine pH 6.5, Urine Specific [place] <=1.005, Urine Protein NEGATIVE, Urine Glucose (UA) NEGATIVE, Urine Ketones NEGATIVE, Urine Nitrite NEGATIVE, Urine Bilirubin NEGATIVE, Urine Urobilinogen 0.2, Urine Leukocyte Esterase NEGATIVE, Urine RBC (Auto) NEGATIVE, Urine RBC NONE, Urine WBC NONE, Urine Squamous Epithelial Cells NONE, Urine Crystals NONE, Urine Bacteria NEGATIVE, Urine Casts PRESENT, Urine Hyaline Casts 2-5, Urine Mucus NEGATIVE, Urine Culture Indicated CULTURE PENDING 08/10/22 05:16: White Blood Count 18.0, Red Blood Count 6.47, Hemoglobin 12.6, Hematocrit 45, Mean Corpuscular Volume 70, Mean Corpuscular Hemoglobin 20, Mean Corpuscular Hemoglobin Concent 28, Red Cell Distribution Width 20.0, Platelet Count 566, Mean Platelet Volume 10.3, Immature Granulocyte % (Auto) 0, Neutrophils (%) (Auto) 81, Lymphocytes (%) (Auto) 12, Monocytes (%) (Auto) 5, Eosinophils (%) (Auto) 2, Basophils (%) (Auto) 0, Neutrophils # (Auto) 14.6, Lymphocytes # (Auto) 2.1, Monocytes # (Auto) 0.8, Eosinophils # (Auto) 0.3, Basophils # (Auto) 0.1, Immature Granulocyte # (Auto) 0.1, Sodium Level 141, Potassium Level 4.2, Chloride Level 111, Carbon Dioxide Level 19, Anion Gap 11, Blood Urea Nitrogen 17, Creatinine 0.95, Estimat Glomerular Filtration Rate 62, BUN/Creatinine Ratio 18, Glucose Level 87, Calcium Level 8.4, Corrected Calcium 9.0, Total Bilirubin 0.5, Aspartate Amino Transf (AST/SGOT) 19, Alanine Aminotransferase (ALT/SGPT) 15, Alkaline Phosphatase 100, Total Protein 5.7, Albumin 3.3, Iron Level 18, Vitamin B12 Level 579 08/11/22 05:17: White Blood Count 17.0, Red Blood Count 6.81, Hemoglobin 13.0, Hematocrit 47, Mean Corpuscular Volume 69, Mean Corpuscular Hemoglobin 19, Mean Corpuscular Hemoglobin Concent 28, Red Cell Distribution Width 20.2, Platelet Count 528, Mean Platelet Volume 9.7, Immature Granulocyte % (Auto) 0, Neutrophils (%) (Auto) 77, Lymphocytes (%) (Auto) 15, Monocytes (%) (Auto) 5, Eosinophils (%) (Auto) 3, Basophils (%) (Auto) 1, Neutrophils # (Auto) 13.0, Lymphocytes # (Auto) 2.5, Monocytes # (Auto) 0.8, Eosinophils # (Auto) 0.5, Basophils # (Auto) 0.1, Immature Granulocyte # (Auto) 0.1, Sodium Level 141, Potassium Level 4.6, Chloride Level 109, Carbon Dioxide Level 20, Anion Gap 12, Blood Urea Nitrogen 18, Creatinine 1.02, Estimat Glomerular Filtration Rate 57, BUN/Creatinine Ratio 18, Glucose Level 91, Calcium Level 8.9, Corrected Calcium 9.3, Total Bilirubin 0.5, Aspartate Amino Transf (AST/SGOT) 18, Alanine Aminotransferase (ALT/SGPT) 17, Alkaline Phosphatase 102, Total Protein 6.1, Albumin 3.5, Vancomycin Level Trough 21.1 Discharge Home Medications: Active Scripts Active Cefdinir 300 Mg Capsule 300 Mg PO BID Reported Vitamin B Complex 1 Each Tablet 1 Each PO DAILY Calcium Carbonate 300 Mg Calcium (750 Mg) Tab.chew 300 Mg PO DAILY Vitamin D3 (Cholecalciferol (Vitamin D3)) 50 Mcg (2000 Unit) Capsule 50 Mcg PO DAILY Telmisartan 20 Mg Tablet 20 Mg PO HS Amlodipine Besylate 5 Mg Tablet 5 Mg PO DAILY Omeprazole 20 Mg Capsule.dr 20 Mg PO DAILY Instructions to patient/family Please see electronic discharge instructions given to patient. Diagnosis/Problems Diagnosis/Problems (1) Sepsis Status: Acute (2) Vertigo Status: Acute DANELLE BURROWS DO Aug 11, 2022 11:34
[2022-08-11 11:37] VITALS: BP 120/75
[2022-08-11] MEDS ORDERED: CEFDINIR 300 MG (OMNICEF) CAP PO NR (12:00)
--- NOTE | 2022-08-11 13:45 | Progress Note ---
REED SALCEDO 08/11/22 1345: Progress Note Hospital Course: Doris Rodriguez is a pleasant 76 yo F admitted to Med-Surg floor from ED on 08/09/22 for sepsis protocol and vertigo. She arrived to [facility] by EMS with a chief complaint of dizziness and nausea/vomiting. Pt states that she was at work on her computer when she suddenly became diaphoretic and felt that the room was spinning. She then proceeded to experience multiple episodes of vomiting. She does have a past history of vertigo. She contacted her daughter who then called EMS. Once she received medication at the hospital, she reports her symptoms seemed to alleviate. Significant findings in the ED included WBC of 21.6, Temp of 35.4 (repeat 36.0), and Lactic acid of 2.00. She was subsequently admitted under sepsis protocol and started on Vancomycin and Cefepime. CXR in the ED no camilo no acute processes and CT of the head was negative. Her and daughter have been present. She was experiencing some lightheadedness during her stay but denied any pain throughout the time. She has been toileting fine and ambulating about her room and throughout the hallways with PT. She was found to have decreased iron levels and received iron infusion this morning as well as a B12 injection. Straight cath urine culture and preliminary blood cultures taken 08/09/22 showed no growth. She has a pmh of breast cancer, HTN, and acid reflux for which she take amplodipine, telemisartan, and omeprazole. She follows with Dr. Root for oncology and receives monthly cancer treatments. Last treatment was about two weeks ago. This morning Doris reports that she has not had any lightheadedness or dizziness since yesterday. Her only complaint is pain in her left hand due to chronic neuropathy. She denies chest pain, shortness of breath, nausea, vomiting, diarrhea, constipation or palpitations. Her newest CXR is un changed. PCP is Dr. Jerrod Beauchamp. Objective: Heart: Regular rate and rhythm, Normal S1/S2, no murmur Lungs: Clear to auscultation bilaterally, normal air movement Abdomen: soft, nontender, normoactive bowels sounds Neck: supple, no cervical lymphadenopathy Extremities: no edema Pulses: 2+ radial Psych: alert, oriented, cooperative with exam Assessment and Plan: Sepsis -Continue Vancomycin and Cefepime -WBC count is 17.0 down from 18.0 yesterday Vertigo -Monitor for reoccurrence -Encouraging ambulation Iron Deficiency -Iron infusion -B12 injection Nausea/Vomiting -Resolved HTN -Continue home meds Acid Reflux -Continue home meds hx of Breast cancer -Last monthly tx was about 2 weeks ago Discharge patient with PO Omnicef once she has completed IV cefepime, vancomycin, and iron infusion KAREN BURROWS DO 08/12/22 0529: Supervisory-Addendum Brief Verification & Attestation Participated in pt care: history, MDM, physical Personally performed: exam, history, MDM, supervision of care Care discussed with: Medical Student Procedures: n/a Results interpretation: Verified all documentation Verification and Attestation of Medical Student E/M Service A medical student performed and documented this service in my presence. I reviewed and verified all information documented by the medical student and made modifications to such information, when appropriate. I personally performed the physical exam and medical decision making. Karen Burrows, Aug 12, 2022,05:29 REED SALCEDO Aug 11, 2022 13:45 KAREN BURROWS DO Aug 12, 2022 05:29
[2022-08-11] MEDS ORDERED: TROUGH ORDER-PHARMACY XX NR (22:00)
== END 2022-08-11 13:30 | disposition home or self-care (01) | DRG 872 ==
LOC: EDUNIT# 16:20 → ER 16:21 → 4TH 20:25
PROVIDERS: ADMIT Internal Medicine; ATTEND Internal Medicine
DX: A41.9 Sepsis, unspecified organism (principal); R42 Dizziness and giddiness; R11.2 Nausea with vomiting, unspecified; I10 Essential (primary) hypertension; K21.9 Gastro-esophageal reflux disease without esophagitis; G62.9 Polyneuropathy, unspecified; E61.1 Iron deficiency; M19.90 Unspecified osteoarthritis, unspecified site; E05.90 Thyrotoxicosis, unspecified without thyrotoxic crisis or storm; Z20.822 Contact with and (suspected) exposure to COVID-19; Z85.3 Personal history of malignant neoplasm of breast; Z79.899 Other long term (current) drug therapy; Z88.0 Allergy status to penicillin; Z88.2 Allergy status to sulfonamides
CPT/HCPCS: 36415; 51701; 70450; 71045; 80053; 80202; 81000; 82150; 82550; 82553; 82607; 83540; 83605; 83690; 83735; 83874; 84484; 85007; 85025; 85027; 85610; 85652; 85730; 86141; 87040; 87088; 87636; 93005; 93041